=== PATIENT | female | born 1930 | race Caucasian/White ===

== ENCOUNTER → 2016-05-03 | Outpatient (CLI) | payer MEDICARE, OTHER | LOC: EDBD → WI 10:48 | PROVIDERS: ATTEND Family Medicine | DX: Z12.31 Encounter for screening mammogram for malignant neoplasm of breast (principal) | CPT/HCPCS: 77067; G0202 ==

== ENCOUNTER → 2016-05-05 | Outpatient (CLI) | payer MEDICARE, OTHER ==
[2016-05-05 11:56] LABS: ANION GAP 13 (5-19); BLOOD UREA NITROGEN 25 mg/dL (7-20); CALCIUM 10.7 mg/dL (8.4-10.2); CARBON DIOXIDE 26 mmol/L (22-30); CHLORIDE 107 mmol/L (98-107); CHOLESTEROL 161.43 mg/dL (0-200); CREATININE RESULT 1.27 mg/dL (0.52-1.25); Direct HDL 53 mg/dL (>40); GLUCOSE 104 mg/dL (75-110); SODIUM 145.9 mmol/L (137-145); TRIGLYCERIDES 139 mg/dL (<150)
[2016-05-05 12:06] LABS: DIRECT LDL 71 mg/dL (<100)
== END ==
LOC: OD 09:59
PROVIDERS: ATTEND Physician Assistant Medical
DX: E78.2 Mixed hyperlipidemia (principal); I10 Essential (primary) hypertension; Z79.899 Other long term (current) drug therapy; R06.02 Shortness of breath
CPT/HCPCS: 36415; 80048; 80061; 83036; 83880; 84443

== ENCOUNTER → 2017-03-30 | Outpatient (CLI) | payer MEDICARE, OTHER ==
[2017-03-30 12:40] LABS: HEMATOCRIT 44.1 % (36.0-47.0); HEMOGLOBIN 15.1 g/dL (12.0-15.5); MEAN CORPUSCULAR HEMOGLOBIN 31.8 pg (27.0-33.4); MEAN CORPUSCULAR HGB CONC 34.2 g/dL (32.0-36.0); MEAN CORPUSCULAR VOLUME 93 fl (80-97); PLATELET COUNT 213 10^3/uL (150-450); RED BLOOD COUNT 4.76 10^6/uL (3.72-5.28); RED CELL DISTRIBUTION WIDTH 13.4 % (11.5-14.0); WHITE BLOOD COUNT 10.1 10^3/uL (4.0-10.5)
[2017-03-30 13:02] LABS: CHOLESTEROL 154.55 mg/dL (0-200); TRIGLYCERIDES 153 mg/dL (<150)
[2017-03-30 13:03] LABS: ALANINE AMINOTRANSFERASE 30 U/L (9-52); ALBUMIN 4.6 g/dL (3.5-5.0); ALKALINE PHOSPHATASE 156 U/L (38-126); ANION GAP 15 (5-19); ASPARTATE AMINO TRANSFERASE 31 U/L (14-36); BILIRUBIN,DIRECT 0.3 mg/dL (0.0-0.4); BLOOD UREA NITROGEN 18 mg/dL (7-20); CALCIUM 10.8 mg/dL (8.4-10.2); CARBON DIOXIDE 24 mmol/L (22-30); CHLORIDE 107 mmol/L (98-107); GLUCOSE 109 mg/dL (75-110); POTASSIUM 4.3 mmol/L (3.6-5.0); SODIUM 145.8 mmol/L (137-145); TOTAL PROTEIN 7.4 g/dL (6.3-8.2)
[2017-03-30 13:05] LABS: ANION GAP 15 (5-19); BLOOD UREA NITROGEN 18 mg/dL (7-20); CALCIUM 10.8 mg/dL (8.4-10.2); CARBON DIOXIDE 24 mmol/L (22-30); CHLORIDE 107 mmol/L (98-107); GLUCOSE 109 mg/dL (75-110); POTASSIUM 4.3 mmol/L (3.6-5.0); SODIUM 145.8 mmol/L (137-145)
[2017-03-30 13:13] LABS: DIRECT LDL 77 mg/dL (<100)
[2017-03-30 13:16] LABS: VLDL CHOLESTEROL 30.6 mg/dL (10-31)
== END ==
LOC: OD 10:57
PROVIDERS: ATTEND Physician Assistant Medical
DX: R06.02 Shortness of breath (principal); E78.2 Mixed hyperlipidemia; I10 Essential (primary) hypertension; Z79.899 Other long term (current) drug therapy
CPT/HCPCS: 36415; 80048; 80053; 80061; 83036; 83880; 84443; 85027

== ENCOUNTER 2017-07-16 21:03 | Emergency (ER) | payer MEDICARE, OTHER ==
[2017-07-16] MEDS ORDERED: TRANEXAMIC ACID INJ/PF 1,000 MG/10 ML SDV IV ONE (22:54)
[2017-07-16] MEDS ORDERED: LIDOCAINE 2% VISCOUS SOLN 20 ML UDCUP PO ONE (23:12)
[2017-07-16] MEDS ORDERED: ONDANSETRON 4 MG TAB.RAPDIS PO ONE (23:15)
--- NOTE | 2017-07-16 23:20 | ER Document Report ---
ED General - General Chief Complaint: Nose Bleed Stated Complaint: NOSE BLEED Time Seen by Provider: 07/16/17 22:42 Mode of Arrival: Medic Information source: Patient, [facility] Records Notes: 86-year-old female with history of hypertension, reflux, atrial fibrillation on Eliquis presents with complaint of nosebleed that started several hours prior to arrival. Patient denies any injury to the nose. She denies any increases in medication. She has had prior similar symptoms. Patient denies any chest pain, shortness of breath, abdominal pain. She does admit to some nausea. TRAVEL OUTSIDE OF THE [place] IN LAST 30 DAYS: No - HPI Onset: Just prior to arrival Onset/Duration: Gradual, Persistent Quality of pain: No pain Severity: None Associated symptoms: denies: Chest pain, Shortness of breath Exacerbated by: Denies. denies: Supine Relieved by: Denies Similar symptoms previously: Yes - Related Data Allergies/Adverse Reactions: aspirin [Aspirin] Allergy (Intermediate, Verified 07/16/17 21:08) GI BLEED Sulfa (Sulfonamide Antibiotics) Allergy (Verified 07/16/17 21:08) Past Medical History - General Information source: Patient, [facility] Records - Social History Smoking Status: Never Smoker Frequency of alcohol use: None Drug Abuse: None Lives with: Family Family History: Reviewed & Not Pertinent Patient has suicidal ideation: No Patient has homicidal ideation: No - Past Medical History Cardiac Medical History: Reports: Hx Hypertension GI Medical History: Reports: Hx Hiatal Hernia Past Surgical History: Reports: Hx Cholecystectomy, Hx Hysterectomy Review of Systems - Review of Systems Notes: REVIEW OF SYSTEMS: CONSTITUTIONAL : Denies fever, chills, or sweats. Denies recent illness. Denies weight loss, recent hospitalizations. EENT: Denies visula changes, eye pain. Denies sore throat, oral lesions, difficulty swallowing. CARDIOVASCULAR: Denies chest pain. Denies palpitations or racing or irregular heart beat. Denies lower extremity edema. RESPIRATORY: Denies cough, cold, or chest congestion. Denies shortness of breath, difficulty breathing, or wheezing. GASTROINTESTINAL: Denies abdominal pain or distention. Denies vomiting, or diarrhea. Denies blood in vomitus, stools, or per rectum. Denies black, tarry stools. Denies constipation. GENITOURINARY: Denies difficulty urinating, painful urination, burning, frequency, blood in urine, or vaginal discharge. MUSCULOSKELETAL: Denies back or neck pain or stiffness. Denies joint pain or swelling. SKIN: Denies rash, lesions or sores. HEMATOLOGIC : Denies easy bruising or bleeding. LYMPHATIC: Denies swollen, enlarged glands. NEUROLOGICAL: Denies confusion or altered mental status. Denies passing out or loss of consciousness. Denies dizziness or lightheadedness. Denies headache. Denies weakness or paralysis or loss of use of either side. Denies problems with gait or speech. Denies sensory loss, numbness, or tingling. Denies seizures. PSYCHIATRIC: Denies anxiety or stress. Denies depression, suicidal ideation, or homicidal ideation. Physical Exam - Vital signs Vitals: Temp Pulse Resp BP Pulse Ox 97.8 F 83 16 128/91 H 94 07/16/17 21:12 07/16/17 21:12 07/16/17 21:12 07/16/17 21:12 07/16/17 21:12 - Notes Notes: PHYSICAL EXAMINATION: GENERAL: Well-appearing, well-nourished and in no acute distress. HEAD: Atraumatic, normocephalic. EYES: Pupils equal round and reactive to light, extraocular movements intact, conjunctiva are normal. ENT: active bleeding from the right nares. moist mucous membranes. NECK: Normal range of motion, supple without lymphadenopathy LUNGS: Breath sounds clear to auscultation bilaterally and equal. No wheezes rales or rhonchi. HEART: Regular rate and rhythm without murmurs ABDOMEN: Soft, nontender, nondistended abdomen. No guarding, no rebound. No masses appreciated. Female : deferred Musculoskeletal: Normal range of motion, no pitting or edema. No cyanosis. NEUROLOGICAL: Cranial nerves grossly intact. Normal speech, normal gait. Normal sensory, motor exams PSYCH: Normal mood, normal affect. SKIN: Warm, Dry, normal turgor, no rashes or lesions noted. Course - Re-evaluation Re-evalutation: 86-year-old female with history of hypertension, reflux, atrial fibrillation on Eliquis presents with complaint of nosebleed that started several hours prior to arrival. Patient was seen by myself upon arrival. Vital signs were reviewed. Patient is afebrile, normotensive and not hypoxic. Patient does not appear toxic or dehydrated. They are in no acute distress. Previous medical records and nursing notes reviewed. Significant findings include mild oozing from the right naris. 07/17/17 00:27 2 cc of TXA were atomized into the patient's right naris. Pressure was held. On reevaluation bleeding has stopped. Patient was monitored for several hours in the emergency department to assure she does not rebleed. 07/17/17 00:42 Attempted to contact patient's son to assure that she will be able to get into the house but the phone is currently busy. We will continue to monitor the patient until we can get her home. 07/17/17 08:19 Patient has remained stable throughout her ED course of 8 hours. She had no recurrence of bleeding. Patient will be discharged home as soon as we can assure she is able to get into the house. Patient provided the opportunity to ask questions, and express concerns. Discharge instructions discussed. Patient is agreeable with discharge home. Return indications explained and discussed with the patient who displays understanding. Patient encouraged to return to the emergency department immediately with any concerns. - Vital Signs Vital signs: Temp Pulse Resp BP Pulse Ox 98.4 F 77 20 118/79 96 07/17/17 04:55 07/17/17 04:55 07/17/17 04:55 07/17/17 04:55 07/17/17 04:55 Discharge - Discharge Clinical Impression: Anterior epistaxis Condition: Good Disposition: HOME, SELF-CARE Instructions: Nosebleed Instructions ([facility]) Additional Instructions: Follow up with your physician tomorrow for further care or return to the ED IMMEDIATELY if symptoms worsen or new concerns occur. If you cannot afford to follow up with your primary care physician a list of low cost clinics have been provided at the end of your discharge papers as well. Referrals: DEBBIE PICKARD MD [Primary Care Provider] - Follow up in 3-5 days
[2017-07-17 04:59] VITALS: BP 118/79
== END 2017-07-17 07:01 | disposition home or self-care (01) ==
LOC: ER 21:03
DX: R04.0 Epistaxis (principal); R11.0 Nausea; I10 Essential (primary) hypertension; I48.91 Unspecified atrial fibrillation; Z79.01 Long term (current) use of anticoagulants; Z88.6 Allergy status to analgesic agent; Z88.2 Allergy status to sulfonamides
CPT/HCPCS: 99284; 96374; A9270; J3490 ×2; S0119

== ENCOUNTER 2017-07-30 08:06 | Emergency (ER) | payer MEDICARE, OTHER ==
[2017-07-30] MEDS ORDERED: SILVER NITRATE APPLICATOR 1 APPLIC STICK..EA. 10/PACKAGE TOP ONE (08:47)
[2017-07-30 10:08] LABS: ABSOLUTE BASOPHILS # (AUTO) 0.1 10^3/uL (0.0-0.2); ABSOLUTE EOSINOPHILS # (AUTO) 0.6 10^3/uL (0.0-0.6); ABSOLUTE LYMPHOCYTES (AUTO) 1.1 10^3/uL (0.5-4.7); ABSOLUTE MONOCYTES (AUTO) 0.8 10^3/uL (0.1-1.4); ABSOLUTE NEUT (AUTO) 6.8 10^3/uL (1.7-8.2); ALANINE AMINOTRANSFERASE 24 U/L (9-52); ALBUMIN 3.8 g/dL (3.5-5.0); ALKALINE PHOSPHATASE 148 U/L (38-126); ANION GAP 10 (5-19); ASPARTATE AMINO TRANSFERASE 26 U/L (14-36); BASOPHILS % (AUTO) 1.1 % (0-2); BILIRUBIN,DIRECT 0.4 mg/dL (0.0-0.4); BILIRUBIN,TOTAL 1.8 mg/dL (0.2-1.3); BLOOD UREA NITROGEN 18 mg/dL (7-20); CALCIUM 10.1 mg/dL (8.4-10.2); CARBON DIOXIDE 25 mmol/L (22-30); CHLORIDE 110 mmol/L (98-107); EOSINOPHILS % (AUTO) 6.8 % (0-6); GLUCOSE 122 mg/dL (75-110); HEMATOCRIT 35.8 % (36.0-47.0); HEMOGLOBIN 12.1 g/dL (12.0-15.5); LYMPHOCYTES % (AUTO) 11.9 % (13-45); MEAN CORPUSCULAR HEMOGLOBIN 30.9 pg (27.0-33.4); MEAN CORPUSCULAR HGB CONC 33.9 g/dL (32.0-36.0); MEAN CORPUSCULAR VOLUME 91 fl (80-97); MONOCYTES % (AUTO) 8.1 % (3-13); PLATELET COUNT 226 10^3/uL (150-450); POTASSIUM 4.4 mmol/L (3.6-5.0); RED BLOOD COUNT 3.93 10^6/uL (3.72-5.28); RED CELL DISTRIBUTION WIDTH 14.8 % (11.5-14.0); SEGMENTED NEUTROPHILS % (AUTO) 72.1 % (42-78); SODIUM 145.3 mmol/L (137-145); TOTAL CELLS COUNTED % (AUTO) 100 %; TOTAL PROTEIN 7.1 g/dL (6.3-8.2); WHITE BLOOD COUNT 9.4 10^3/uL (4.0-10.5)
[2017-07-30 10:26] LABS: INTERNATIONAL RATION (INR) 1.23; PROTHROMBIN TIME 16.1 SEC (11.4-15.4)
[2017-07-30 10:27] LABS: PARTIAL THROMBOPLASTIN TIME 38.4 SEC (23.5-35.8)
--- NOTE | 2017-07-30 12:08 | ER Document Report ---
ED ENT - General Chief Complaint: Nose Bleed Stated Complaint: NOSE BLEED Time Seen by Provider: 07/30/17 08:20 Mode of Arrival: Medic Information source: Patient Notes: Patient is an 86-year-old female who presents to the ER today for nosebleed that started prior to arrival. Patient has had 4 nosebleeds in the past month. She has come to the emergency department had them packed. She admits to being on Eliquis for A. fib. She denies any trauma to the nose that she knows of. She denies any bleeding anywhere else. She has not followed up with ear nose and throat yet this month. TRAVEL OUTSIDE OF THE [place] IN LAST 30 DAYS: No - Related Data Allergies/Adverse Reactions: aspirin [Aspirin] Allergy (Intermediate, Verified 07/30/17 08:34) GI BLEED Sulfa (Sulfonamide Antibiotics) Allergy (Verified 07/30/17 08:34) Past Medical History - General Information source: Patient - Social History Smoking Status: Never Smoker Chew tobacco use (# tins/day): No Frequency of alcohol use: None Drug Abuse: None Family History: Reviewed & Not Pertinent Patient has suicidal ideation: No Patient has homicidal ideation: No - Past Medical History Cardiac Medical History: Reports: Hx Atrial Fibrillation, Hx Congestive Heart Failure, Hx Hypertension Renal/ Medical History: Denies: Hx Peritoneal Dialysis GI Medical History: Reports: Hx Hiatal Hernia Past Surgical History: Reports: Hx Cholecystectomy, Hx Hysterectomy Review of Systems - Review of Systems Constitutional: No symptoms reported EENT: See HPI Cardiovascular: See HPI Respiratory: No symptoms reported Gastrointestinal: No symptoms reported Genitourinary: No symptoms reported Female Genitourinary: No symptoms reported Musculoskeletal: No symptoms reported Skin: No symptoms reported Hematologic/Lymphatic: No symptoms reported Neurological/Psychological: No symptoms reported Physical Exam - Vital signs Vitals: Temp Pulse Resp BP Pulse Ox 98.2 F 69 13 141/75 H 99 07/30/17 08:06 07/30/17 08:06 07/30/17 08:06 07/30/17 08:06 07/30/17 08:06 - Notes Notes: PHYSICAL EXAMINATION: GENERAL: Well-appearing and in no acute distress. HEAD: Right nostril packed with gauze with dried blood surrounding, normocephalic. EYES: Pupils equal round and reactive to light, extraocular movements intact, sclera anicteric, conjunctiva are normal. ENT: ear canals without erythema or foreign body, TMs pearly rizzo with good bony landmarks, nares patent, oropharynx clear without exudates. Moist mucous membranes. NECK: Normal range of motion, supple without lymphadenopathy LUNGS: CTAB and equal. No wheezes rales or rhonchi. HEART: Irregularly irregular, without murmurs EXTREMITIES: Normal range of motion, no pitting edema. No cyanosis. NEUROLOGICAL: Cranial nerves grossly intact. Normal sensory/motor exams. PSYCH: Normal mood, normal affect. SKIN: Warm, Dry, normal turgor, no rashes or lesions noted Course - Re-evaluation Re-evalutation: 07/30/17 11:51 Dr. hernandez, my attending evaluated patient with myself and we do not appreciate any anterior nosebleed. Patient's nose did start bleeding again here in the emergency department, profusely, bright red blood, patient's nose was at that time packed by myself and Dr. hernandez with a Rhino Rocket. Patient tolerated procedure well although it was painful. Patient was watched for at least 4 hours after this time and no more bleeding occurred. I do believe at this time it is safe for patient to go home with Rhino Rocket in place and follow-up with ENT. Dr. Bingham, ENT application security engineer at [facility] states she can go home with the rhino rocket in place as she has had no bleeding and follow up in the office outpatient next week, (Today's tuesday) and to send her home on amoxicillin. Dr. Dodson was consulted, her real estate office manager who wants her to hold eliquis for a day. 08/01/17 16:10 - Vital Signs Vital signs: Temp Pulse Resp BP Pulse Ox 98.2 F 69 18 133/69 H 93 07/30/17 08:06 07/30/17 08:06 07/30/17 13:01 07/30/17 13:01 07/30/17 13:01 - Laboratory Result Diagrams: 07/30/17 08:25 07/30/17 08:25 Laboratory results interpreted by me: 07/30/17 07/30/17 07/30/17 08:25 08:25 08:25 Hct 35.8 L RDW 14.8 H Lymphocytes % 11.9 L Eosinophils % 6.8 H PT 16.1 H APTT 38.4 H Sodium 145.3 H Chloride 110 H Creatinine 1.37 H Est GFR ( Amer) 44 L Est GFR (Non-Af Amer) 37 L Glucose 122 H Total Bilirubin 1.8 H Alkaline Phosphatase 148 H Procedures - Nosebleed Procedure Right Time completed: 10:00 Location: Posterior Supplies used: RhinoroA[facility] Notes: Dr. Hernandez performed, successful Discharge - Discharge Clinical Impression: Posterior epistaxis Condition: Stable Disposition: HOME, SELF-CARE Additional Instructions: Return immediately for any new or worsening symptoms. Follow up with ENT, call Tuesday to make followup appointment. Prescriptions: Amoxicillin 500 mg PO BID #20 capsule Referrals: DEBBIE PICKARD MD [Primary Care Provider] - Follow up as needed BILL DOTY DO [ASSOCIATE] - Follow up as needed
[2017-07-30 13:18] VITALS: BP 133/69
== END 2017-07-30 13:20 | disposition home or self-care (01) ==
LOC: ER 08:06
PROC: 2Y41X5Z Packing of Nasal Region using Packing Material (ICD-10-PCS; principal; 2017-07-30)
DX: R04.0 Epistaxis (principal); I48.91 Unspecified atrial fibrillation; I50.9 Heart failure, unspecified; I11.0 Hypertensive heart disease with heart failure; Z88.6 Allergy status to analgesic agent; Z88.2 Allergy status to sulfonamides; Z79.02 Long term (current) use of antithrombotics/antiplatelets; Z90.49 Acquired absence of other specified parts of digestive tract; Z90.710 Acquired absence of both cervix and uterus
CPT/HCPCS: 36415; 80053; 85025; 85610; 85730; 99283

== ENCOUNTER 2017-08-05 03:46 | Inpatient (IN) | payer MEDICARE, OTHER ==
[2017-08-05] MEDS ORDERED: LIDOCAINE 2%/EPINEPHRINE INJ 20 ML VIAL INJ ONE (03:53)
[2017-08-05] MEDS ORDERED: LIDOCAINE 1% INJ-PF (10 MG/ML) 30 ML SDV ONE (03:54)
[2017-08-05] MEDS ORDERED: TRANEXAMIC ACID INJ/PF 1,000 MG/10 ML SDV IV ONE (03:59)
--- NOTE | 2017-08-05 04:21 | ER Document Report ---
ED General - General Stated Complaint: NOSE BLEED Time Seen by Provider: 08/05/17 03:59 Notes: Patient is an 86-year-old female presents with complaint of nosebleed. She has recurrent nosebleeds. She was seen 2 days ago and had cauterization performed by the ENT doctor. She is on Eliquis that she takes for atrial fibrillation. She denies history of artificial heart valve. She presents because around 2 AM she started bleeding heavily from her nose. She presents with a suspect for blood clots and patient having large amounts clots coming from the nose. Her medics tried topical TXA but was unsuccessful. Patient says that the cauterization was done at the ENT office here in [place]. She is unsure what the name of the doctor was. Patient says it was her right nare that was cauterized TRAVEL OUTSIDE OF THE [place] IN LAST 30 DAYS: No - Related Data Allergies/Adverse Reactions: aspirin [Aspirin] Allergy (Intermediate, Verified 07/30/17 08:34) GI BLEED Sulfa (Sulfonamide Antibiotics) Allergy (Verified 07/30/17 08:34) Past Medical History - Social History Smoking Status: Unknown if Ever Smoked Frequency of alcohol use: None Drug Abuse: None Family History: Reviewed & Not Pertinent - Past Medical History Cardiac Medical History: Reports: Hx Atrial Fibrillation, Hx Congestive Heart Failure, Hx Hypertension Renal/ Medical History: Denies: Hx Peritoneal Dialysis GI Medical History: Reports: Hx Hiatal Hernia Past Surgical History: Reports: Hx Cholecystectomy, Hx Hysterectomy Review of Systems - Review of Systems Notes: My Normal Review Basic REVIEW OF SYSTEMS: CONSTITUTIONAL : Denies fever, chills, or sweats. Denies recent illness. EENT: Active nose bleed CARDIOVASCULAR: Denies chest pain. RESPIRATORY: Denies cough, cold, or chest congestion. Denies shortness of breath, difficulty breathing, or wheezing. GENITOURINARY: Denies difficulty urinating, painful urination, burning, frequency, or blood in urine. SKIN: Denies rash or skin lesions. HEMATOLOGIC : on Eliquis. NEUROLOGICAL: Denies altered mental status or loss of consciousness. Denies headache. Denies weakness or paralysis or loss of use of either side. Denies problems with gait or speech. Denies sensory or motor loss. ALL OTHER SYSTEMS REVIEWED AND NEGATIVE. Physical Exam - Vital signs Vitals: Pulse Ox 96 08/05/17 04:10 - Notes Notes: General Appearance: Well nourished, alert, cooperative, no acute distress, no obvious discomfort. Vitals: reviewed, See vital signs table. Head: no swelling or tenderness to the head Eyes: PERRL, EOMI, Conjuctiva clear Nares: Blood clots in both nares. Will remove the clots the patient continues to bleed from both nares and is difficult to see exactly where the bleeding is coming from in either nare. Mouth: Amount of blood clots in the patient's mouth with active bleeding coming from the mouth. Throat: No tonsillar inflammation, No airway obstruction, No lymphadenopathy Neck: Supple, no neck tenderness Lungs: No wheezing, No rales, No rhonci, No accessory muscle use, good air exchange bilaterally. Heart: Normal rate, Regular rythm, No murmur, no rub Skin: warm, dry, appropriate color, no rash Neuro: speech clear, oriented x 3, normal affect, responds appropriately to questions. Course - Re-evaluation Re-evalutation: 08/05/17 04:22 Because of ongoing active hemorrhage and a large amount of clots have been pulled from patient's nose and mouth I called our ENT on-call, Dr. Beaulieu, he will come and evaluate the patient. Patient is receiving 500 mg of tranexamic acid. She has [address] are soaked with lidocaine with epi. Seems now that most the bleeding is coming more from the right side. 08/05/17 06:34 Dr. Beaulieu came and saw the patient. He was able to cauterize several areas and place posterior packing and now he will take the patient to the OR. Dictation of this chart was performed using voice recognition software; therefore, there may be some unintended grammatical errors. 08/05/17 06:35 - Vital Signs Vital signs: Temp Pulse Resp BP Pulse Ox 16 102/59 L 95 08/05/17 04:15 08/05/17 04:15 08/05/17 04:15 - Laboratory Result Diagrams: 08/05/17 04:25 08/05/17 04:25 Laboratory results interpreted by me: 08/05/17 08/05/17 08/05/17 04:25 04:25 04:25 WBC 12.8 H RBC 3.63 L Hgb 10.9 L Hct 32.9 L RDW 14.3 H Seg Neutrophils % 79.7 H Lymphocytes % 7.9 L Absolute Neutrophils 10.2 H PT 18.0 H APTT 42.1 H BUN 25 H Creatinine 1.39 H Est GFR ( Amer) 44 L Est GFR (Non-Af Amer) 36 L Glucose 149 H Discharge - Discharge Clinical Impression: Epistaxis Condition: Stable Disposition: ADMITTED OBSERVATION Admitting Provider: [facility] Admitted: OR Referrals: DEBBIE PICKARD MD [Primary Care Provider] - Follow up as needed
[2017-08-05 04:32] LABS: ABSOLUTE BASOPHILS # (AUTO) 0.1 10^3/uL (0.0-0.2); ABSOLUTE EOSINOPHILS # (AUTO) 0.4 10^3/uL (0.0-0.6); ABSOLUTE MONOCYTES (AUTO) 1.1 10^3/uL (0.1-1.4); ABSOLUTE NEUT (AUTO) 10.2 10^3/uL (1.7-8.2); EOSINOPHILS % (AUTO) 2.8 % (0-6); HEMATOCRIT 32.9 % (36.0-47.0); HEMOGLOBIN 10.9 g/dL (12.0-15.5); LYMPHOCYTES % (AUTO) 7.9 % (13-45); MEAN CORPUSCULAR HEMOGLOBIN 30.1 pg (27.0-33.4); MEAN CORPUSCULAR HGB CONC 33.2 g/dL (32.0-36.0); MEAN CORPUSCULAR VOLUME 91 fl (80-97); MONOCYTES % (AUTO) 8.6 % (3-13); PLATELET COUNT 311 10^3/uL (150-450); RED BLOOD COUNT 3.63 10^6/uL (3.72-5.28); RED CELL DISTRIBUTION WIDTH 14.3 % (11.5-14.0); SEGMENTED NEUTROPHILS % (AUTO) 79.7 % (42-78); TOTAL CELLS COUNTED % (AUTO) 100 %; WHITE BLOOD COUNT 12.8 10^3/uL (4.0-10.5)
[2017-08-05 04:40] LABS: INTERNATIONAL RATION (INR) 1.41
[2017-08-05 04:41] LABS: PARTIAL THROMBOPLASTIN TIME 42.1 SEC (23.5-35.8)
[2017-08-05 04:43] LABS: ANION GAP 12 (5-19); BLOOD UREA NITROGEN 25 mg/dL (7-20); CALCIUM 9.9 mg/dL (8.4-10.2); CARBON DIOXIDE 24 mmol/L (22-30); CHLORIDE 106 mmol/L (98-107); GLUCOSE 149 mg/dL (75-110); POTASSIUM 4.6 mmol/L (3.6-5.0); SODIUM 142.1 mmol/L (137-145)
[2017-08-05] MEDS ORDERED: FENTANYL CITRATE INJ/PF 100 MCG/2 ML AMPUL ONE (06:55)
[2017-08-05] MEDS ORDERED: LIDOCAINE 2% INJ-PF (20 MG/ML) 10 ML AMPUL ONE (06:55)
[2017-08-05] MEDS ORDERED: MIDAZOLAM 2 MG/2 ML INJ ONE (06:55)
[2017-08-05] MEDS ORDERED: DEXAMETHASONE SOD PHOSPHATE INJ 4 MG/1 ML VIAL ONE (06:55)
[2017-08-05] MEDS ORDERED: PROPOFOL INJ 200 MG/20 ML VIAL IV ONE (06:56)
[2017-08-05] MEDS ORDERED: OXYMETAZOLINE HCL 0.05% NASAL SPRAY 15 ML BOTTLE ONE (07:00)
[2017-08-05] MEDS ORDERED: BUPIVACAINE HCL 0.5%/EPI 1:200000 INJ 1.8 ML CARTRIDGE ONE (07:25)
[2017-08-05] MEDS ORDERED: BUPIVACAINE HCL 0.5%-EPI 1:200000 INJ/PF 30 ML VIAL ONE (07:25)
[2017-08-05] MEDS ORDERED: LIDOCAINE 0.5%/EPINEPHRINE INJ 50 ML VIAL INJ ONE (07:58)
[2017-08-05] MEDS ORDERED: FENTANYL CITRATE INJ/PF 100 MCG/2 ML AMPUL IV PRN ×2 (08:12)
[2017-08-05] MEDS ORDERED: MORPHINE SULFATE 10 MG/ML INJ IV PRN ×2 (08:12→10:03)
[2017-08-05] MEDS ORDERED: PROMETHAZINE HCL INJ 25 MG/1 ML VIAL IV PRN ×2 (08:12→10:03)
[2017-08-05] MEDS ORDERED: ONDANSETRON HCL INJ/PF 4 MG/2 ML SDV IV PRN ×2 (08:12→10:03)
[2017-08-05] MEDS ORDERED: MEPERIDINE HCL/PF INJ 25 MG/1 ML DISP.SYRIN IV PRN (08:12)
[2017-08-05] MEDS ORDERED: DIPHENHYDRAMINE HCL 50 MG/ML VIAL IV PRN (08:12)
[2017-08-05] MEDS ORDERED: HYDROCODONE/ACETAMINOPHEN 5-325 MG TABLET PO PRN (10:03)
[2017-08-05] MEDS: AMOXICILLIN TR/POT CLAVULANATE 500-125 MG TAB PO SCH ×2 (13:09→22:03)
[2017-08-05] MEDS: SODIUM CHLORIDE NASAL SPRAY 44 ML NASL SCH ×2 (13:10→17:02)
[2017-08-05] MEDS ORDERED: ACETAMINOPHEN 325 MG TABLET PO PRN (13:39)
[2017-08-05] MEDS ORDERED: IPRATROPIUM/ALBUTEROL 0.5-2.5 MG/3 ML AMPUL NEB PRN (13:39)
[2017-08-05] MEDS ORDERED: OXYCODONE-ACETAMINOPHEN 5-325 MG TABLET PO PRN (13:39)
--- NOTE | 2017-08-05 16:13 | PDOC H&P ---
History of Present Illness Admission Date/PCP: 08/05/17 06:40 DEBBIE PICKARD MD Patient complains of: Nose bleed History of Present Illness: MOHAN ALVARENGA is a 86 year old female Past Medical History Cardiac Medical History: Reports: Atrial Fibrillation, Congestive Heart Failure , Hypertension GI Medical History: Reports: Hiatal Hernia Hematology: Denies: Anemia, Sickle Cell Disease Past Surgical History Past Surgical History: Reports: Cholecystectomy, Hysterectomy Denies: Amputation Social History Smoking Status: Never Smoker Frequency of Alcohol Use: None Hx Recreational Drug Use: No Drugs: None Hx Prescription Drug Abuse: No - Advance Directive Resuscitation Status: Full Code Family History Family History: Reviewed & Not Pertinent Parental Family History Reviewed: Yes Children Family History Reviewed: Yes Sibling(s) Family History Reviewed.: Yes Medication/Allergy Home Medications: Amlodipine Besylate [Norvasc 5 mg Tablet] 5 mg PO DAILY 08/05/17 Apixaban [Eliquis] 2.5 mg PO Q12 08/05/17 Atorvastatin Calcium [Lipitor 40 mg Tablet] 40 mg PO DAILY 08/05/17 Furosemide [Lasix 20 mg Tablet] 20 mg PO Q2D 08/05/17 Metoprolol Succinate [Toprol Xl 50 mg Tab.sr] 50 mg PO QHS 08/05/17 Metoprolol Succinate [Toprol Xl 50 mg Tab.sr] 100 mg PO QAM 08/05/17 Ondansetron [Zofran Odt 4 mg Tablet] 4 mg PO Q6HP PRN 08/05/17 Tramadol HCl [Ultram 50 mg Tablet] 50 mg PO Q8HP PRN 08/05/17 Valsartan [Diovan 160 mg Tablet] 160 mg PO Q12 08/05/17 Allergies/Adverse Reactions: aspirin [Aspirin] Allergy (Intermediate, Verified 07/30/17 08:34) GI BLEED Sulfa (Sulfonamide Antibiotics) Allergy (Verified 07/30/17 08:34) Review of Systems All systems: reviewed and no additional remarkable complaints except as stated Physical Exam Vital Signs: Temp Pulse Resp BP Pulse Ox 97.6 F 68 24 H 130/60 H 94 08/05/17 15:34 08/05/17 15:34 08/05/17 15:34 08/05/17 15:34 08/05/17 15:34 Pulse Oximeter Continuous Start: 06/29/18 10: 05 Freq: RTQ4 Status: Active Document 08/05/17 14:20 [facility] (Rec: 08/05/17 14:54 [facility] [email or web address]) Pulse Oximetry Assessment Oxygen Saturation (92-100) 93 Oxygen Delivery Method Room Air Fraction of Inspired Oxygen (FIO2) 21 Equipment Usage Initial Set Up Continuous Pulse Oximeter 24 Hour Charge Charge Now Continuous SpO2 Machine # [id number] Intake & Output 08/04/17 08/05/17 08/06/17 06:59 06:59 06:59 Intake Total 2500 Output Total 50 Balance 2450 Weight 63.503 kg General appearance: PRESENT: no acute distress, other - elderly and frail bilateral nosepaks both nostrils Head exam: PRESENT: atraumatic, normocephalic Eye exam: PRESENT: conjunctiva pink, EOMI, PERRLA. ABSENT: scleral icterus Ear exam: PRESENT: normal external ear exam Mouth exam: PRESENT: moist, tongue midline Neck exam: ABSENT: carotid bruit, JVD, lymphadenopathy, thyromegaly Respiratory exam: PRESENT: clear to auscultation austen. ABSENT: rales, rhonchi, wheezes Cardiovascular exam: PRESENT: irregular rhythm, +S1, +S2. ABSENT: diastolic murmur, rubs, systolic murmur Pulses: PRESENT: normal dorsalis pedis pul Vascular exam: PRESENT: normal capillary refill GI/Abdominal exam: PRESENT: normal bowel sounds, soft. ABSENT: distended, guarding, mass, organolmegaly, rebound, tenderness Rectal exam: PRESENT: deferred Extremities exam: PRESENT: full ROM. ABSENT: calf tenderness, clubbing, pedal edema Neurological exam: PRESENT: alert, awake, oriented to person, oriented to place , oriented to time, oriented to situation, CN II-XII grossly intact. ABSENT: motor sensory deficit Psychiatric exam: PRESENT: appropriate affect, normal mood. ABSENT: homicidal ideation, suicidal ideation Skin exam: PRESENT: dry, intact, warm. ABSENT: cyanosis, rash Results Laboratory Results: 08/05/17 04:25 08/05/17 04:25 Blood Type A POSITIVE 08/05/17 04:30 Antibody Screen NEGATIVE 08/05/17 04:30 MCV 91 fl (80-97) 08/05/17 04:25 MCH 30.1 pg (27.0-33.4) 08/05/17 04:25 MCHC 33.2 g/dL (32.0-36.0) 08/05/17 04:25 RDW 14.3 % (11.5-14.0) H 08/05/17 04:25 Seg Neutrophils % 79.7 % (42-78) H 08/05/17 04:25 Lymphocytes % 7.9 % (13-45) L 08/05/17 04:25 Monocytes % 8.6 % (3-13) 08/05/17 04:25 Eosinophils % 2.8 % (0-6) 08/05/17 04:25 Basophils % 1.0 % (0-2) 08/05/17 04:25 Absolute Neutrophils 10.2 10^3/uL (1.7-8.2) H 08/05/17 04:25 Absolute Lymphocytes 1.0 10^3/uL (0.5-4.7) 08/05/17 04:25 Absolute Monocytes 1.1 10^3/uL (0.1-1.4) 08/05/17 04:25 Absolute Eosinophils 0.4 10^3/uL (0.0-0.6) 08/05/17 04:25 Absolute Basophils 0.1 10^3/uL (0.0-0.2) 08/05/17 04:25 Chloride 106 mmol/L (98-107) 08/05/17 04:25 Carbon Dioxide 24 mmol/L (22-30) 08/05/17 04:25 Anion Gap 12 (5-19) 08/05/17 04:25 Est GFR ( Amer) 44 (>60) L 08/05/17 04:25 Est GFR (Non-Af Amer) 36 (>60) L 08/05/17 04:25 Glucose 149 mg/dL (75-110) H 08/05/17 04:25 Calcium 9.9 mg/dL (8.4-10.2) 08/05/17 04:25 Assessment & Plan - Diagnosis (1) Epistaxis Is this a current diagnosis for this admission?: Yes (2) Atrial fibrillation Qualifiers: Atrial fibrillation type: chronic Qualified Code(s): I48.2 - Chronic atrial fibrillation Is this a current diagnosis for this admission?: Yes (3) Hypertension Qualifiers: Is this a current diagnosis for this admission?: Yes - Time Time Spent: 30 to 50 Minutes Critical Time spent with patient: 15-24 minutes Medications reviewed and adjusted accordingly: Yes Anticipated discharge: Home Within: within 72 hours - Inpatient Certification Based on my medical assessment, after consideration of the patient's comorbidities, presenting symptoms, or acuity I expect that the services needed warrant INPATIENT care.: Yes Medical Necessity: Significant Comorbidiites Make Outpatient Treatment Too Risky , Risk of Diagnosis Which Will Require Inpatient Eval/Care/Monitoring
[2017-08-05] MEDS ORDERED: TRAMADOL HCL 50 MG TABLET PO PRN (16:16)
[2017-08-05] MEDS ORDERED: ONDANSETRON 4 MG TAB.RAPDIS PO PRN (16:16)
[2017-08-05] MEDS ORDERED: SUCCINYLCHOLINE CHLORIDE INJ 200 MG/10 ML VIAL ONE (18:30)
[2017-08-05] MEDS: OXYMETAZOLINE HCL 0.05% NASAL SPRAY 15 ML BOTTLE NASL SCH (22:02)
[2017-08-05] MEDS: VALSARTAN 160 MG TABLET PO SCH (22:03)
[2017-08-05] MEDS: METOPROLOL SUCCINATE 50 MG TAB.SR.24H PO SCH (22:03)
[2017-08-06] MEDS: SODIUM CHLORIDE NASAL SPRAY 44 ML NASL SCH ×4 (01:09→16:48)
[2017-08-06] MEDS: AMOXICILLIN TR/POT CLAVULANATE 500-125 MG TAB PO SCH ×3 (06:13→22:20)
[2017-08-06] MEDS: RINGERS SOLUTION,LACTATED 1,000 ML IV PRN (06:14)
[2017-08-06 06:23] LABS: HEMATOCRIT 26.4 % (36.0-47.0); HEMOGLOBIN 8.9 g/dL (12.0-15.5); MEAN CORPUSCULAR HEMOGLOBIN 30.5 pg (27.0-33.4); MEAN CORPUSCULAR HGB CONC 33.7 g/dL (32.0-36.0); MEAN CORPUSCULAR VOLUME 90 fl (80-97); PLATELET COUNT 278 10^3/uL (150-450); RED BLOOD COUNT 2.92 10^6/uL (3.72-5.28); RED CELL DISTRIBUTION WIDTH 14.5 % (11.5-14.0); WHITE BLOOD COUNT 14.4 10^3/uL (4.0-10.5)
[2017-08-06 06:42] LABS: ANION GAP 13 (5-19); BLOOD UREA NITROGEN 23 mg/dL (7-20); CALCIUM 9.9 mg/dL (8.4-10.2); CARBON DIOXIDE 22 mmol/L (22-30); CHLORIDE 109 mmol/L (98-107); GLUCOSE 126 mg/dL (75-110); POTASSIUM 4.6 mmol/L (3.6-5.0); SODIUM 144.1 mmol/L (137-145)
[2017-08-06] MEDS: METOPROLOL SUCCINATE 50 MG TAB.SR.24H PO SCH ×2 (07:27→22:20)
[2017-08-06] MEDS: ATORVASTATIN CALCIUM 40 MG TABLET PO SCH (09:14)
[2017-08-06] MEDS: FUROSEMIDE 20 MG TABLET PO SCH (09:14)
[2017-08-06] MEDS: VALSARTAN 160 MG TABLET PO SCH ×2 (09:14→22:20)
[2017-08-06] MEDS: DOCUSATE SODIUM 100 MG CAPSULE PO SCH (09:14)
[2017-08-06] MEDS: OXYMETAZOLINE HCL 0.05% NASAL SPRAY 15 ML BOTTLE NASL SCH ×2 (09:15→22:20)
[2017-08-06] MEDS: AMLODIPINE BESYLATE 5 MG TABLET PO SCH (09:15)
--- NOTE | 2017-08-06 15:34 | PDOC PROGRESS REPORT ---
Subjective Progress Note for:: 08/06/17 Subjective:: Patient admitted with epistaxis which has been recurrent. She has had cauterization done by ENT. There appears he has had multiple bleeding episodes and stability again during the night I believe from the left nare. Patient's hemoglobin has dropped to 8.3 from 10.6 yesterday and was about 12 2 days ago. Although she is not visibly bleeding and she is hemodynamically stable I think it is reasonable to keep her to ensure that bleeding has stopped and she is stabilized prior to discharge ENT is requesting a transfer to the hospitalist service and have placed an order to do this Reason For Visit: EPISTAXIS ATRIAL FIBRILLATION Physical Exam Vital Signs: Temp Pulse Resp BP Pulse Ox 98.9 F 88 18 129/52 H 94 08/06/17 11:20 08/06/17 14:00 08/06/17 07:28 08/06/17 11:20 08/06/17 12:00 Pulse Oximeter Continuous Start: 08/05/17 10: 05 Freq: RTQ4 Status: Active Document 08/06/17 12:00 [facility] (Rec: 08/06/17 14:08 [facility] [id number]) Pulse Oximetry Assessment Oxygen Saturation (92-100) 94 Oxygen Delivery Method Room Air Equipment Usage Equipment in Use Continuous SpO2 Machine # 10 Intake & Output 08/05/17 08/06/17 08/07/17 06:59 06:59 06:59 Intake Total 5158 Output Total 1400 Balance 3758 Weight 62.8 kg General appearance: PRESENT: no acute distress, well-developed, other - Elderly female Head exam: PRESENT: atraumatic, normocephalic Eye exam: PRESENT: conjunctiva pink, EOMI, PERRLA. ABSENT: scleral icterus Ear exam: PRESENT: normal external ear exam Mouth exam: PRESENT: moist, tongue midline Neck exam: ABSENT: carotid bruit, JVD, lymphadenopathy, thyromegaly Respiratory exam: PRESENT: clear to auscultation [place]. ABSENT: rales, rhonchi, wheezes Cardiovascular exam: PRESENT: irregular rhythm, +S1, +S2, systolic murmur. ABSENT: diastolic murmur, rubs Pulses: PRESENT: normal dorsalis pedis pul Vascular exam: PRESENT: normal capillary refill GI/Abdominal exam: PRESENT: normal bowel sounds, soft. ABSENT: distended, guarding, mass, organolmegaly, rebound, tenderness Rectal exam: PRESENT: deferred Extremities exam: PRESENT: full ROM. ABSENT: calf tenderness, clubbing, pedal edema Neurological exam: PRESENT: alert, awake, oriented to person, oriented to place , oriented to situation, CN II-XII grossly intact, other - Patient appears to be a little bit more confused today with no lateralizing signs. ABSENT: motor sensory deficit Psychiatric exam: PRESENT: appropriate affect, normal mood. ABSENT: homicidal ideation, suicidal ideation Skin exam: PRESENT: dry, intact, warm. ABSENT: cyanosis, rash Additional comments: Bilateral nasal packing with swollen nostrils Results Laboratory Results: 08/06/17 05:43 08/06/17 05:43 08/06/17 08/06/17 05:43 05:43 WBC 14.4 H RBC 2.92 L Hgb 8.9 L Hct 26.4 L MCV 90 MCH 30.5 MCHC 33.7 RDW 14.5 H Plt Count 278 Sodium 144.1 Potassium 4.6 Chloride 109 H Carbon Dioxide 22 Anion Gap 13 BUN 23 H Creatinine 1.29 H Est GFR ( Amer) 48 L Est GFR (Non-Af Amer) 39 L Glucose 126 H Calcium 9.9 Assessment & Plan - Diagnosis (1) Epistaxis Is this a current diagnosis for this admission?: Yes Plan: Continue to hold Eliquis and monitor patient overnight. Will consider transfusion if hemoglobin continues to drop or any evidence of further acute blood loss (2) Atrial fibrillation Qualifiers: Atrial fibrillation type: chronic Qualified Code(s): I48.2 - Chronic atrial fibrillation Is this a current diagnosis for this admission?: Yes Plan: Hold Eliquis otherwise rate is controlled (3) Hypertension Qualifiers: Is this a current diagnosis for this admission?: Yes Plan: Controlled - Time Time Spent with patient: 15-24 minutes Medications reviewed and adjusted accordingly: Yes Anticipated discharge: Home Within: within 48 hours - Inpatient Certification Based on my medical assessment, after consideration of the patient's comorbidities, presenting symptoms, or acuity I expect that the services needed warrant INPATIENT care.: Yes Medical Necessity: Need Close Monitoring Due to Risk of Patient Decompensation, Risk of Complication if Not Cared For in Hospital
[2017-08-07] MEDS: SODIUM CHLORIDE NASAL SPRAY 44 ML NASL SCH ×4 (00:11→17:44)
[2017-08-07 05:14] LABS: HEMATOCRIT 23.9 % (36.0-47.0); MEAN CORPUSCULAR HEMOGLOBIN 30.3 pg (27.0-33.4); MEAN CORPUSCULAR HGB CONC 33.5 g/dL (32.0-36.0); MEAN CORPUSCULAR VOLUME 91 fl (80-97); PLATELET COUNT 227 10^3/uL (150-450); RED BLOOD COUNT 2.65 10^6/uL (3.72-5.28); RED CELL DISTRIBUTION WIDTH 14.6 % (11.5-14.0); WHITE BLOOD COUNT 8.3 10^3/uL (4.0-10.5)
[2017-08-07] MEDS: AMOXICILLIN TR/POT CLAVULANATE 500-125 MG TAB PO SCH ×3 (05:21→22:50)
[2017-08-07] MEDS: RINGERS SOLUTION,LACTATED 1,000 ML IV PRN (05:21)
[2017-08-07 05:33] LABS: ANION GAP 12 (5-19); BLOOD UREA NITROGEN 25 mg/dL (7-20); CALCIUM 9.4 mg/dL (8.4-10.2); CARBON DIOXIDE 26 mmol/L (22-30); CHLORIDE 108 mmol/L (98-107); GLUCOSE 104 mg/dL (75-110); POTASSIUM 4.2 mmol/L (3.6-5.0); SODIUM 146.1 mmol/L (137-145)
[2017-08-07] MEDS ORDERED: ACETAMINOPHEN 325 MG TABLET PO PRN (09:12)
[2017-08-07] MEDS ORDERED: NORMAL SALINE 250 ML IV PRN ×2 (09:12)
[2017-08-07] MEDS ORDERED: FUROSEMIDE INJ/PF 20 MG/2 ML SDV IV PRN (09:12)
[2017-08-07] MEDS: DOCUSATE SODIUM 100 MG CAPSULE PO SCH (09:17)
[2017-08-07] MEDS: METOPROLOL SUCCINATE 50 MG TAB.SR.24H PO SCH ×2 (09:17→22:50)
[2017-08-07] MEDS: AMLODIPINE BESYLATE 5 MG TABLET PO SCH (09:17)
[2017-08-07] MEDS: ATORVASTATIN CALCIUM 40 MG TABLET PO SCH (09:18)
[2017-08-07] MEDS: VALSARTAN 160 MG TABLET PO SCH ×2 (09:19→22:50)
[2017-08-07] MEDS: OXYMETAZOLINE HCL 0.05% NASAL SPRAY 15 ML BOTTLE NASL SCH ×2 (09:19→22:50)
--- NOTE | 2017-08-07 09:40 | PROGRESS NOTE E ---
Progress Note NAME: MOHAN ALVARENGA : 1930 AGE: 86Y DATE: 08/07/2017 ROOM: 429 SUBJECTIVE: The patient is currently lying in bed. Her son is present at the bedside, active in the patient's care. The patient has not had any overt evidence of continued bleeding; however, hemoglobin has drifted down. The patient is quite symptomatic, describing herself as overall weak and fatigued and given the patient's hemoglobin was over 12 just a few days ago. The patient has been afebrile. Her blood pressure has been in a good range and the patient does not voice any other concerns at this time. REVIEW OF SYSTEMS: The rest of the review of systems is negative. MEDICATIONS: Medications have been reviewed. OBJECTIVE: GENERAL: The patient is an 86-year-old female who is awake, alert. She is oriented to person, place, time and situation. She is a verbal conversationalist, just a little delayed, does not appear to be any acute distress. VITAL SIGNS: As follows: Temperature 98.5, pulse 61, respirations 18, blood pressure 134/82, oxygen saturation 99% on room air. SKIN: Pale, dry. No rash. She is not diaphoretic. HEENT: Pupils are reactive. Conjunctivae pale. There is no evidence of JVP. CARDIOVASCULAR: Heart is irregularly irregular. There is no rub. CHEST: Diminished, symmetrical and unlabored. ABDOMEN: Soft, nontender. Nondistended. EXTREMITIES: No clubbing, cyanosis or edema. PSYCHIATRIC: Appropriate affect, pleasant mood. DIAGNOSTICS Lab values are as follows: Hematology obtained on 08/07/2017: WBC 4.3, hemoglobin 8.0, hematocrit 23.9, platelet count 227,000. Chemistry obtained on 08/07/2017: Sodium 146, potassium 4.2, chloride 108, carbon dioxide 26, BUN 25, creatinine 1.29, glucose 104, calcium 9.4. IMPRESSION AND PLAN: 1. EPISTAXIS. I have discussed chronic anticoagulation with the patient. It appears that this needs to be forgone as the patient's risk of bleeding is profound. She has had 3 ER visits associated with this and now an impatient stay and has required transfusion. 2. CHRONIC ATRIAL FIBRILLATION. The patient is rate controlled. Continue home medication. 3. ACUTE BLOOD LOSS ANEMIA SECONDARY TO ABOVE. The patient is quite symptomatic at this point. We will go ahead and give her a unit of blood and follow. 4. HYPERTENSION. The patient's blood pressures have been in acceptable range. We will continue current medications. DISPOSITION: The patient is a FULL CODE. Pending patient's symptomatology and diagnostic findings, we will reevaluate in the a.m. for possible discharge. Time spent on this followup including assessment and plan, physical examination, patient education, review of records and family meeting is 25 minutes. DICTATING PHYSICIAN: JOSE HANLEY NP [id number] PHY#: [id number] ID: [id number] JOB#: [id number] ACCT: [id number] cc: >
[2017-08-07] MEDS ORDERED: FLUCONAZOLE 100 MG TABLET PO ONE (10:00)
[2017-08-07] MEDS: DIPHENHYDRAMINE HCL 25 MG CAPSULE PO PRN ×2 (11:02→22:50)
--- NOTE | 2017-08-07 14:55 | OPERATIVE REPORT E ---
Operative Report NAME: MOHAN ALVARENGA : 1930 AGE: 86Y DATE OF SURGERY: 08/05/2017 ROOM: 429 PREOPERATIVE DIAGNOSIS: RECURRENT ACUTE EPISTAXIS. POSTOPERATIVE DIAGNOSIS: RECURRENT ACUTE EPISTAXIS. OPERATIONS: 1. Control of complicated right anterior, mid, and posterior epistaxis with extensive cautery and packing in the main operating room under general anesthesia with rigid transnasal surgical endoscopy. 3. Control of complicated anterior left epistaxis with cautery and packing in the main operating room under general anesthesia with rigid transnasal surgical endoscopy. 2. Exam under anesthesia of the nose, bilateral, with use of rigid transnasal surgical endoscopy. SURGEON: BILL DOTY D.O. ANESTHESIA: General endotracheal tube. ANESTHESIA STAFF: SUSI Curiel. ESTIMATED BLOOD LOSS: 50 mL. FLUIDS: None. COMPLICATIONS: None. DRAINS: None. SPONGE COUNT: Verified. MATERIALS FORWARDED SPECIMEN: None. FINDINGS: 1. The patient was with active bleeding throughout the right nasal passage at the anterior, mid, and posterior aspects which included the septum, inferior turbinate, and lateral postnasal area/choana/superior torous aspect. 2. Left caudal septum active bleeding at Little's area. 3. Right mid posterior septal area of bleeding is in the area of a maxillary crest spur/septal spur. 4. There was extensive blood and blood clots that were identified and removed. 5. Patient was with a 9 cm Rapid Rhino Rocket in the right nasal passage, which extended back to the nasopharynx, and a left Merocel pack. 6. No sinonasal polyps or sinus discharge noted. 7. Left nasal septal deviation and right maxillary crest/septal spur. INDICATIONS: This is an 86-year-old white female who has been seen and evaluated in the [place] [facility] setting, as well as the [place] [facility] office. The patient is with history of A-fib as well and takes Eliquis 2.5 mg p.o. twice daily. The patient is with history of prominent acute recurrent epistaxis, especially affecting the right side. The patient was seen in the [place] [facility] approximately 1 week prior with prominent epistaxis, with placement of a right Rapid Rhino Rocket. Request was for ENT evaluation, and the patient was seen approximately 3 days after the pack was placed. The pack was removed in the office setting and the patient underwent flexible fiberoptic endoscopy as well as rigid transnasal diagnostic endoscopy with application of silver nitrate at the anterior and mid septum and right turbinate inferiorly. There was adequate hemostasis noted with Bacitracin ointment applied. The patient returned to the [place] [facility] in the middle of the night on , with prominent persistent right epistaxis, which was very difficult to control in the emergency room setting, with bleeding persisting. ENT was requested to come in for evaluation and management. In the emergency room setting, the ENT evaluation included flexible and rigid bilateral transnasal diagnostic endoscopy with suctioning but due to persistent epistaxis from multiple locations 7.5-cm Rapid Rhino Rocket was positioned posteriorly which extended into the nasopharynx and was inflated. This allowed epistaxis to be significantly slowed. The left Merocel pack was also repositioned and left in place. After extensive discussion with the ER physician regarding transfer to a higher level of care for consideration of embolization versus attempt at initial control in the main operating room. The case was also discussed with the anesthesia staff at [facility] and a decision and plan was made to proceed to the main OR at [place]. The patient's son arrived in the ER and he had also accompanied her in the ENT clinic setting. The patient care plan was discussed with both the patient and her son, and they were in agreement to proceed. The risks and complications of control of epistaxis in the main operating room setting and potential need for embolization were all discussed. They voiced an understanding of the described surgical and care plan, and were in agreement. Consent was obtained to proceed to the main operating room. PROCEDURE: The patient was taken to the main operating room and placed on the operating room table in the supine position. Appropriate monitors were placed. Using mask and IV access, general anesthesia was induced. The patient was transorally intubated without difficulty. The patient was then positioned and prepped for nasal surgery. The patient underwent injection of local anesthetic with epinephrine. The patient was then prepped and draped in the usual fashion for nasal surgery. At this point, the left nasal pack was removed and the nose was suctioned and irrigated. Rigid transnasal surgical endoscopy was utilized. There was only bleeding identified at the left caudal septal Little's area. There were no sinonasal polyps or other discharge noted. At this point, silver nitrate cautery was applied to the area of bleeding at left Little's location. Attention was now turned to the right side, with extensive bipolar electrocautery being utilized along aspects of the right inferior turbinate, anterior, mid, and posterior, as well as at the anterior, mid, and posterior septum. Cautery was also performed at the floor anteriorly on the right. Suction electrocautery was also utilized to cauterize superior to the right eustachian tube torus and lateral posterior nasal passage/choana area. There was irrigation performed at various times. This was suctioned. There was adequate hemostasis noted. Throughout the control of epistaxis proceeding on the right rigid transnasal surgical endoscopy was utilized. On the left, attention was turned once again, and a return of bleeding was sgain noted at the left Little's area. This was followed by use of bipolar electrocautery for definitive hemostasis. At this point, extensive nasal irrigation was performed and gently suctioned. Adequate hemostasis was noted bilateral. The patient had 1 Telfa nasal pack placed per side with Bacitracin ointment as well as the appication of FloSeal along the length of each pack and throughout the nasal passages. These were secured at the caudal aspect with silk suture, which was also secured outside the nose. There was no active bleeding noted at the end of the case. Intraoperatively, a plan was also made to admit the patient to the hospital for observation, and the hospitalist staff was notified and agreed to assist with the inpatient management. The patient was allowed to emerge from general anesthesia and was extubated in the main operating room. She was then transported to the post anesthesia recovery unit in stable condition. There were no complications. The patient was then transported to the post anesthesia recovery unit in stable condition. There were no complications. DICTATING PHYSICIAN: BILL DOTY D.O. [id number] PHY#: [id number] ID: [id number] JOB#: [id number] ACCT: [id number] cc:BILL DOTY D.O. > MTDD
[2017-08-08] MEDS: SODIUM CHLORIDE NASAL SPRAY 44 ML NASL SCH ×5 (01:18→23:46)
[2017-08-08] MEDS: AMOXICILLIN TR/POT CLAVULANATE 500-125 MG TAB PO SCH ×3 (05:28→22:04)
[2017-08-08 05:33] LABS: HEMATOCRIT 34.2 % (36.0-47.0); MEAN CORPUSCULAR HGB CONC 33.4 g/dL (32.0-36.0); MEAN CORPUSCULAR VOLUME 90 fl (80-97); PLATELET COUNT 334 10^3/uL (150-450); RED CELL DISTRIBUTION WIDTH 14.5 % (11.5-14.0); WHITE BLOOD COUNT 14.1 10^3/uL (4.0-10.5)
[2017-08-08 05:42] LABS: HEMOGLOBIN 11.4 g/dL (12.0-15.5)
[2017-08-08 06:02] LABS: ANION GAP 15 (5-19); BLOOD UREA NITROGEN 22 mg/dL (7-20); CALCIUM 10.2 mg/dL (8.4-10.2); CARBON DIOXIDE 25 mmol/L (22-30); CHLORIDE 106 mmol/L (98-107); GLUCOSE 110 mg/dL (75-110); POTASSIUM 4.1 mmol/L (3.6-5.0); SODIUM 145.8 mmol/L (137-145)
[2017-08-08] MEDS: METOPROLOL SUCCINATE 50 MG TAB.SR.24H PO SCH ×2 (08:20→22:04)
[2017-08-08] MEDS: ATORVASTATIN CALCIUM 40 MG TABLET PO SCH (10:00)
[2017-08-08] MEDS: AMLODIPINE BESYLATE 5 MG TABLET PO SCH (10:00)
[2017-08-08] MEDS: DOCUSATE SODIUM 100 MG CAPSULE PO SCH (10:00)
[2017-08-08] MEDS: VALSARTAN 160 MG TABLET PO SCH ×2 (10:01→22:04)
[2017-08-08] MEDS: OXYMETAZOLINE HCL 0.05% NASAL SPRAY 15 ML BOTTLE NASL SCH ×2 (10:01→22:04)
[2017-08-08] MEDS: FUROSEMIDE 20 MG TABLET PO SCH (10:03)
--- NOTE | 2017-08-08 12:55 | PROGRESS NOTE E ---
Progress Note NAME: MOHAN ALVARENGA : 1930 AGE: 86Y DATE: 08/08/2017 ROOM: 429 SUBJECTIVE: The patient is lying in bed. I had a discussion with the patient's son as well as the patient, and the patient would like to work with Physical Therapy today and then make a decision about rehab. She will talk with her family about it tonight. The patient overall has been quite weak and quite deconditioned. The patient has been afebrile. Her blood pressures have been in a good range. The patient has had no reported episodes of vomiting nor diarrhea, and the patient does not voice any other concerns at this time. REVIEW OF SYSTEMS: The rest of the review of systems is negative. MEDICATIONS: Medications have been reviewed. OBJECTIVE: GENERAL: The patient is an 86-year-old female who is awake, alert. She is oriented to person, place, time, does not appear to be distressed. VITAL SIGNS: As follows: Temperature is 97.9, pulse 81, respirations 20, blood pressure is 143/79, oxygen saturation is 98% on room air. SKIN: Warm and dry. No rash. She is not diaphoretic. HEENT: Pupils are reactive. NECK: The patient does have a benign neck mass that is followed by her primary care provider on the right side. No evidence of JVP. CARDIOVASCULAR: Heart is irregularly irregular. There is no murmur or rub. CHEST: Clear, symmetrical, unlabored. ABDOMEN: Soft, nontender, nondistended. BACK: No CVA tenderness or sacral edema. EXTREMITIES: No clubbing, cyanosis, edema. PSYCHIATRIC: Appropriate affect. Pleasant mood. DIAGNOSTICS: Lab values are as follows. Hematology obtained on 08/08/2017: WBCs are 14.1, hemoglobin is 11.4, hematocrit is 34.2, and platelet count is 334,000. Chemistry obtained on 08/08/2017: Sodium is 145, potassium 4.1, chloride is 106, carbon dioxide 25, BUN 22, creatinine is 1.2, glucose is 110, calcium is 10.2, magnesium is 1.8. IMPRESSION AND PLAN: 1. EPISTAXIS. Have discussed chronic anticoagulation with the patient. Did also touch base with Cardiology about this. Will discontinue the patient's anticoagulation given that she has had profound bleeding in the past; this has required transfusion. The patient has had 3 ER visits alone associated with bleeding. The patient's packing remains in place. The patient is being followed by ENT. 2. CHRONIC ATRIAL FIBRILLATION. The patient is rate controlled. Continue home medicines. 3. ACUTE BLOOD LOSS ANEMIA SECONDARY TO #1. The patient is quite asymptomatic at this point. 4. HYPERTENSION. The patient's blood pressures have been in an acceptable range. Will continue current medications. 5. PHYSICAL DECONDITIONING. The patient is going to discuss rehab with her family today. DISPOSITION: THE PATIENT IS A FULL CODE. Pending the patient's symptomatology and diagnostic findings, will re-evaluate in the a.m. for possible discharge. Time spent on this followup, including assessment/plan, physical examination, patient education, review of records, and family meeting, is 20 minutes. DICTATING PHYSICIAN: JOSE HANLEY NP [id number] PHY#: [id number] ID: [id number] JOB#: [id number] ACCT: [id number] cc: >
[2017-08-09] MEDS: SODIUM CHLORIDE NASAL SPRAY 44 ML NASL SCH ×3 (05:13→17:37)
[2017-08-09] MEDS: AMOXICILLIN TR/POT CLAVULANATE 500-125 MG TAB PO SCH ×3 (05:15→22:04)
[2017-08-09] MEDS: AMLODIPINE BESYLATE 5 MG TABLET PO SCH (09:00)
[2017-08-09] MEDS: DOCUSATE SODIUM 100 MG CAPSULE PO SCH (09:00)
[2017-08-09] MEDS: VALSARTAN 160 MG TABLET PO SCH ×2 (09:00→22:04)
[2017-08-09] MEDS: OXYMETAZOLINE HCL 0.05% NASAL SPRAY 15 ML BOTTLE NASL SCH ×2 (09:01→22:04)
[2017-08-09] MEDS: METOPROLOL SUCCINATE 50 MG TAB.SR.24H PO SCH ×2 (09:01→22:04)
[2017-08-09 14:17] LABS: APPEARANCE,URINE CLEAR; BILIRUBIN,URINE NEGATIVE (NEGATIVE); COLOR,URINE STRAW; GLUCOSE, URINE NEGATIVE (NEGATIVE); KETONES,URINE NEGATIVE (NEGATIVE); LEUKOCYTE ESTERASE,URINE NEGATIVE (NEGATIVE); NITRITE,URINE NEGATIVE (NEGATIVE); PROTEIN,URINE NEGATIVE (NEGATIVE); URINE SPECIFIC GRAVITY 1.008; UROBILINOGEN,URINE NEGATIVE mg/dL (<2.0)
--- NOTE | 2017-08-09 15:07 | PDOC PROGRESS REPORT ---
Subjective Progress Note for:: 08/09/17 Subjective:: This is 86 years old female patient admitted for nasal bleeding. She had cauterization of bilateral nasal septum. Currently she has Bilateral nasal pack. No nasal bleeding. Reason For Visit: ACUTE BLOOD LOSS ANEMIA,SYMPTOMATIC ANEMIA Physical Exam Vital Signs: Temp Pulse Resp BP Pulse Ox 97.5 F 68 15 139/74 H 95 08/09/17 03:53 08/09/17 14:00 08/09/17 03:53 08/09/17 03:53 08/09/17 03:53 Intake & Output 08/08/17 08/09/17 08/10/17 06:59 06:59 06:59 Intake Total 2170 244 Output Total 2400 1200 Balance -230 -956 Weight 77.4 kg General appearance: PRESENT: no acute distress Head exam: PRESENT: atraumatic, normocephalic Eye exam: PRESENT: conjunctiva pink, EOMI, PERRLA. ABSENT: scleral icterus Ear exam: PRESENT: normal external ear exam Mouth exam: PRESENT: moist, tongue midline Neck exam: ABSENT: carotid bruit, JVD, lymphadenopathy, thyromegaly Respiratory exam: PRESENT: clear to auscultation austen. ABSENT: rales, rhonchi, wheezes Cardiovascular exam: PRESENT: irregular rhythm. ABSENT: diastolic murmur, rubs , systolic murmur Pulses: PRESENT: normal dorsalis pedis pul Vascular exam: PRESENT: normal capillary refill GI/Abdominal exam: PRESENT: normal bowel sounds, soft. ABSENT: distended, guarding, mass, organolmegaly, rebound, tenderness Rectal exam: PRESENT: deferred Extremities exam: PRESENT: full ROM. ABSENT: calf tenderness, clubbing, pedal edema Neurological exam: PRESENT: alert, awake Psychiatric exam: PRESENT: normal mood Skin exam: PRESENT: dry, intact, warm. ABSENT: cyanosis, rash Results Laboratory Results: 08/08/17 04:49 08/08/17 04:49 08/09/17 12:05 Urine Color STRAW Urine Appearance CLEAR Urine pH 7.0 Ur Specific [place] 1.008 Urine Protein NEGATIVE Urine Glucose (UA) NEGATIVE Urine Ketones NEGATIVE Urine Blood NEGATIVE Urine Nitrite NEGATIVE Ur Leukocyte Esterase NEGATIVE Urine WBC (Auto) 4 Assessment & Plan - Diagnosis (1) Epistaxis Is this a current diagnosis for this admission?: Yes Plan: Status post electrocautery and nasal pack. Possibly the nasal packing can be removed by her ENT. (2) Atrial fibrillation Qualifiers: Atrial fibrillation type: chronic Qualified Code(s): I48.2 - Chronic atrial fibrillation Is this a current diagnosis for this admission?: Yes Plan: Controlled. I will discuss with her ENT surgeon regarding resumption of her Eliquis (3) Hypertension Qualifiers: Hypertension type: essential hypertension Qualified Code(s): I10 - Essential (primary) hypertension Is this a current diagnosis for this admission?: Yes Plan: Continue current regimen. (4) Stage III chronic kidney disease Is this a current diagnosis for this admission?: Yes Plan: We will avoid nephrotoxic agents. - Time Time Spent with patient: 25-34 minutes
[2017-08-09] MEDS: ATORVASTATIN CALCIUM 40 MG TABLET PO SCH (22:05)
[2017-08-10] MEDS: AMOXICILLIN TR/POT CLAVULANATE 500-125 MG TAB PO SCH ×3 (05:57→22:18)
[2017-08-10] MEDS: SODIUM CHLORIDE NASAL SPRAY 44 ML NASL SCH ×4 (05:57→17:06)
[2017-08-10] MEDS: AMLODIPINE BESYLATE 5 MG TABLET PO SCH (09:43)
[2017-08-10] MEDS: VALSARTAN 160 MG TABLET PO SCH ×2 (09:44→22:19)
[2017-08-10] MEDS: DOCUSATE SODIUM 100 MG CAPSULE PO SCH (09:44)
[2017-08-10] MEDS: METOPROLOL SUCCINATE 50 MG TAB.SR.24H PO SCH ×2 (09:44→22:19)
[2017-08-10] MEDS: FUROSEMIDE 20 MG TABLET PO SCH (09:45)
[2017-08-10] MEDS: OXYMETAZOLINE HCL 0.05% NASAL SPRAY 15 ML BOTTLE NASL SCH ×2 (09:46→22:18)
--- NOTE | 2017-08-10 14:04 | PDOC PROGRESS REPORT ---
Subjective Subjective:: I seen patient while she is lying in bed. No significant event overnight. I discussed the case with ENT surgeon Dr. Sanches who planned to remove the nasal pack and he said he preferred to do it in the hospital setting. He will let us know if it is okay to resume her Eliquis. Her H&H remained stable. She is potential discharge for tomorrow. Reason For Visit: ACUTE BLOOD LOSS ANEMIA,SYMPTOMATIC ANEMIA Physical Exam Vital Signs: Temp Pulse Resp BP Pulse Ox 97.3 F 90 16 144/79 H 99 08/10/17 11:00 08/10/17 11:00 08/10/17 11:00 08/10/17 11:00 08/10/17 11:00 Intake & Output 08/09/17 08/10/17 08/11/17 06:59 06:59 06:59 Intake Total 244 1132 Output Total 1200 1150 Balance -956 -18 Weight 77.1 kg General appearance: PRESENT: no acute distress Ear exam: PRESENT: normal external ear exam Mouth exam: PRESENT: moist Respiratory exam: PRESENT: clear to auscultation [place]. ABSENT: rales, rhonchi, wheezes Cardiovascular exam: PRESENT: RRR. ABSENT: diastolic murmur, rubs, systolic murmur GI/Abdominal exam: PRESENT: normal bowel sounds, soft. ABSENT: distended, guarding, mass, organolmegaly, rebound, tenderness Neurological exam: PRESENT: alert, awake, oriented to time, oriented to situation Results Laboratory Results: 08/08/17 04:49 08/08/17 04:49 08/09/17 12:05 Urine Color STRAW Urine Appearance CLEAR Urine pH 7.0 Ur Specific [place] 1.008 Urine Protein NEGATIVE Urine Glucose (UA) NEGATIVE Urine Ketones NEGATIVE Urine Blood NEGATIVE Urine Nitrite NEGATIVE Ur Leukocyte Esterase NEGATIVE Urine WBC (Auto) 4 Assessment & Plan - Diagnosis (1) Epistaxis Is this a current diagnosis for this admission?: Yes Plan: Has stopped. States she has bilateral nasal packing and she is scheduled for removal tomorrow. (2) Atrial fibrillation Qualifiers: Atrial fibrillation type: chronic Qualified Code(s): I48.2 - Chronic atrial fibrillation Is this a current diagnosis for this admission?: Yes Plan: Controlled. I will discuss with her ENT surgeon regarding resumption of her Eliquis (3) Hypertension Qualifiers: Hypertension type: essential hypertension Qualified Code(s): I10 - Essential (primary) hypertension Is this a current diagnosis for this admission?: Yes Plan: Continue current regimen. (4) Stage III chronic kidney disease Is this a current diagnosis for this admission?: Yes Plan: We will avoid nephrotoxic agents.
[2017-08-10] MEDS: ATORVASTATIN CALCIUM 40 MG TABLET PO SCH (22:19)
[2017-08-11] MEDS: SODIUM CHLORIDE NASAL SPRAY 44 ML NASL SCH ×4 (00:05→17:31)
[2017-08-11 05:31] LABS: ABSOLUTE BASOPHILS # (AUTO) 0.1 10^3/uL (0.0-0.2); ABSOLUTE EOSINOPHILS # (AUTO) 0.4 10^3/uL (0.0-0.6); ABSOLUTE LYMPHOCYTES (AUTO) 1.2 10^3/uL (0.5-4.7); ABSOLUTE NEUT (AUTO) 6.6 10^3/uL (1.7-8.2); BASOPHILS % (AUTO) 1.2 % (0-2); HEMATOCRIT 31.8 % (36.0-47.0); HEMOGLOBIN 10.7 g/dL (12.0-15.5); LYMPHOCYTES % (AUTO) 13.1 % (13-45); MEAN CORPUSCULAR HEMOGLOBIN 29.8 pg (27.0-33.4); MEAN CORPUSCULAR HGB CONC 33.6 g/dL (32.0-36.0); MEAN CORPUSCULAR VOLUME 89 fl (80-97); MONOCYTES % (AUTO) 10.3 % (3-13); PLATELET COUNT 293 10^3/uL (150-450); RED CELL DISTRIBUTION WIDTH 14.6 % (11.5-14.0); SEGMENTED NEUTROPHILS % (AUTO) 71.4 % (42-78); TOTAL CELLS COUNTED % (AUTO) 100 %; WHITE BLOOD COUNT 9.2 10^3/uL (4.0-10.5)
[2017-08-11] MEDS: AMOXICILLIN TR/POT CLAVULANATE 500-125 MG TAB PO SCH ×3 (06:13→22:15)
[2017-08-11] MEDS: METOPROLOL SUCCINATE 50 MG TAB.SR.24H PO SCH ×2 (07:51→22:15)
[2017-08-11] MEDS: OXYMETAZOLINE HCL 0.05% NASAL SPRAY 15 ML BOTTLE NASL SCH ×2 (10:21→22:16)
[2017-08-11] MEDS: VALSARTAN 160 MG TABLET PO SCH ×2 (10:21→22:15)
[2017-08-11] MEDS: DOCUSATE SODIUM 100 MG CAPSULE PO SCH (10:21)
[2017-08-11] MEDS: AMLODIPINE BESYLATE 5 MG TABLET PO SCH (10:21)
--- NOTE | 2017-08-11 15:58 | PDOC DISCHARGE SUMMARY ---
General - Admit/Disc Date/PCP Admission Date/Primary Care Provider: 08/07/17 09:11 DEBBIE PICKARD MD Discharge Date: 08/11/17 - Discharge Diagnosis (1) Epistaxis Is this a current diagnosis for this admission?: Yes (2) Atrial fibrillation Is this a current diagnosis for this admission?: Yes (3) Hypertension Is this a current diagnosis for this admission?: Yes (4) Stage III chronic kidney disease Is this a current diagnosis for this admission?: Yes - Additional Information Resuscitation Status: Full Code Home Medications: Amlodipine Besylate [Norvasc 5 mg Tablet] 5 mg PO DAILY 08/05/17 Apixaban [Eliquis] 2.5 mg PO Q12 08/05/17 Atorvastatin Calcium [Lipitor 40 mg Tablet] 40 mg PO DAILY 08/05/17 Furosemide [Lasix 20 mg Tablet] 20 mg PO Q2D 08/05/17 Metoprolol Succinate [Toprol Xl 50 mg Tab.sr] 50 mg PO QHS 08/05/17 Metoprolol Succinate [Toprol Xl 50 mg Tab.sr] 100 mg PO QAM 08/05/17 Ondansetron [Zofran Odt 4 mg Tablet] 4 mg PO Q6HP PRN 08/05/17 Tramadol HCl [Ultram 50 mg Tablet] 50 mg PO Q8HP PRN 08/05/17 Valsartan [Diovan 160 mg Tablet] 160 mg PO Q12 08/05/17 History of Present Illness History of Present Illness: MOHAN ALVARENGA is a 86 year old female presents emergency room with complaints of nasal bleed which has been recurrent about 5 times in the last week or so. She says she has had cauterization performed by ENT doctor. She had been on Eliquis for about 2 years and never had any problems with it was started bleeding this week. She was taken to the OR again today and after her procedure medicine is been advised to admit her for overnight observation. Hospital Course Hospital Course: This is a 86 years old female patient presents with recurrent nasal bleeding and acute blood loss anemia. Initially patient admitted by ENT surgeon later transferred to the hospitalist service. She undergone cauterization of the right nasal septum and bilateral nasal packing. Her hemoglobin remained between 10 and 11. In the meantime also we will hold her Eliquis that she had been taking for A. fib. Patient is scheduled for removal of nasal packing today by Dr. Sanches. Otherwise patient remained stable she does not have any acute new complaints. Her vital signs stable and labs are within normal limits and she is good to go once she is released by Dr. Sanches. Physical Exam Vital Signs: Temp Pulse Resp BP Pulse Ox 97.4 F 77 20 135/51 H 95 08/11/17 12:09 08/11/17 12:09 08/11/17 12:09 08/11/17 12:09 08/11/17 12:09 Intake & Output 08/10/17 08/11/17 08/12/17 06:59 06:59 06:59 Intake Total 1132 0 Output Total 1150 300 Balance -18 -300 Weight 77.1 kg 45.3 kg General appearance: PRESENT: no acute distress Mouth exam: PRESENT: moist Neck exam: ABSENT: carotid bruit, JVD, lymphadenopathy, thyromegaly Respiratory exam: PRESENT: clear to auscultation austen. ABSENT: rales, rhonchi, wheezes Cardiovascular exam: PRESENT: irregular rhythm. ABSENT: diastolic murmur, rubs , systolic murmur GI/Abdominal exam: PRESENT: normal bowel sounds, soft. ABSENT: distended, guarding, mass, organolmegaly, rebound, tenderness Neurological exam: PRESENT: alert, awake, oriented to time, oriented to situation Psychiatric exam: PRESENT: normal mood Results Laboratory Results: 08/11/17 04:42 08/08/17 04:49 08/11/17 04:42 WBC 9.2 RBC 3.60 L Hgb 10.7 L Hct 31.8 L MCV 89 MCH 29.8 MCHC 33.6 RDW 14.6 H Plt Count 293 Seg Neutrophils % 71.4 Lymphocytes % 13.1 Monocytes % 10.3 Eosinophils % 4.0 Basophils % 1.2 Absolute Neutrophils 6.6 Absolute Lymphocytes 1.2 Absolute Monocytes 1.0 Absolute Eosinophils 0.4 Absolute Basophils 0.1 Qualifiers - * PATIENT BEING DISCHARGED WITH ANY OF THE FOLLOWING DIAGNOSIS: No
[2017-08-11] MEDS: MAG HYDROX/AL HYDROX/SIMETH SUSP 30 ML UDCUP PO PRN (18:06)
[2017-08-11] MEDS: ATORVASTATIN CALCIUM 40 MG TABLET PO SCH (22:15)
[2017-08-12] MEDS: SODIUM CHLORIDE NASAL SPRAY 44 ML NASL SCH ×2 (00:08→06:26)
[2017-08-12] MEDS: AMOXICILLIN TR/POT CLAVULANATE 500-125 MG TAB PO SCH (06:15)
[2017-08-12] MEDS: MAG HYDROX/AL HYDROX/SIMETH SUSP 30 ML UDCUP PO PRN (06:15)
[2017-08-12 08:14] VITALS: BP 147/79
[2017-08-12] MEDS: METOPROLOL SUCCINATE 50 MG TAB.SR.24H PO SCH (09:14)
== END 2017-08-12 09:10 | disposition home or self-care (01) | DRG 982 ==
LOC: ER 03:46 → UNDOADMOB 06:40 → EH 06:40 → 4S 10:34 → EH 10:34 → OBSVTOIN 08-07 09:11
PROVIDERS: ADMIT Internal Medicine; ATTEND Internal Medicine
PROC: 2Y41X5Z Packing of Nasal Region using Packing Material (ICD-10-PCS; 2017-08-05)
PROC: 3E0F73Z Introduction of Anti-inflammatory into Respiratory Tract, Via Natural or Artificial Opening (ICD-10-PCS; 2017-08-05)
PROC: 2Y51X5Z Removal of Nasal Packing Material (ICD-10-PCS; 2017-08-05)
PROC: 0W3Q7ZZ Control Bleeding in Respiratory Tract, Via Natural or Artificial Opening (ICD-10-PCS; principal; 2017-08-05 07:30)
PROC: 30233N1 Transfusion of Nonautologous Red Blood Cells into Peripheral Vein, Percutaneous Approach (ICD-10-PCS; 2017-08-07)
DX: R04.0 Epistaxis (principal); D62 Acute posthemorrhagic anemia; I13.0 Hypertensive heart and chronic kidney disease with heart failure and stage 1 through stage 4 chronic kidney disease, or unspecified chronic kidney disease; N18.3 Chronic kidney disease, stage 3 (moderate); I50.9 Heart failure, unspecified; K44.9 Diaphragmatic hernia without obstruction or gangrene; I48.2 Chronic atrial fibrillation; J34.2 Deviated nasal septum; J34.89 Other specified disorders of nose and nasal sinuses; R22.1 Localized swelling, mass and lump, neck; Z90.49 Acquired absence of other specified parts of digestive tract; Z90.711 Acquired absence of uterus with remaining cervical stump; Z79.899 Other long term (current) drug therapy; Z88.6 Allergy status to analgesic agent; Z88.2 Allergy status to sulfonamides
CPT/HCPCS: 00160; 36415; 36430; 80048; 81001; 83735; 85025; 85027; 85610; 85730; 86850; 86900; 86901; 86920; 94762; 99285; G0378; G0379; G8978-GP; G8979-GP; J0330; J1100; J2250; J2704; J3010; J3490; J7120; P9016

== ENCOUNTER 2017-08-24 06:30 | Emergency (ER) | payer MEDICARE, OTHER ==
--- NOTE | 2017-08-24 07:10 | ER Document Report ---
ED ENT - General Mode of Arrival: Ambulatory Information source: Patient TRAVEL OUTSIDE OF THE [place] IN LAST 30 DAYS: No <HIRAL DRUMMOND - Last Filed: 08/24/17 08:02> <DASH CLINTON - Last Filed: 08/24/17 16:37> - General Chief Complaint: Nose Bleed Stated Complaint: NOSE BLEED Time Seen by Provider: 08/24/17 07:02 Notes: 87-year-old female presenting to the emergency department today with complaints of nosebleed. Patient was here on 07/16 and 07/30 with complicated nosebleeds that eventually had to be cauterized in the operating room. Patient had an anterior mid bleed and a posterior bleed on 07/30 and was admitted for several days post op. Unfortunately patient was started back on Eliquis. Patient states the bleeding began at 0600. (HIRAL DRUMMOND) - Related Data Allergies/Adverse Reactions: aspirin [Aspirin] Allergy (Intermediate, Verified 07/30/17 08:34) GI BLEED Sulfa (Sulfonamide Antibiotics) Allergy (Verified 07/30/17 08:34) Past Medical History - General Information source: Patient - Social History Smoking Status: Never Smoker Cigarette use (# per day): No Chew tobacco use (# tins/day): No Frequency of alcohol use: None Drug Abuse: None Lives with: Family Family History: Reviewed & Not Pertinent Patient has suicidal ideation: No Patient has homicidal ideation: No - Past Medical History Cardiac Medical History: Reports: Hx Atrial Fibrillation, Hx Congestive Heart Failure, Hx Hypertension GI Medical History: Reports: Hx Hiatal Hernia Past Surgical History: Reports: Hx Cholecystectomy, Hx Hysterectomy <HIRAL DRUMMOND - Last Filed: 08/24/17 08:02> Review of Systems - Review of Systems Constitutional: No symptoms reported EENT: Other - nose bleed, bleeding now controlled Cardiovascular: No symptoms reported Respiratory: No symptoms reported Gastrointestinal: No symptoms reported Genitourinary: No symptoms reported Female Genitourinary: No symptoms reported Musculoskeletal: No symptoms reported Skin: No symptoms reported Hematologic/Lymphatic: No symptoms reported Neurological/Psychological: No symptoms reported -: Yes All other systems reviewed and negative <HIRAL DRUMMOND - Last Filed: 08/24/17 08:02> - Vital signs Vitals: Resp Pulse Ox 16 98 08/24/17 06:41 08/24/17 06:41 Course <HIRAL DRUMMOND - Last Filed: 08/24/17 08:02> - Laboratory Result Diagrams: 08/24/17 07:40 08/24/17 07:40 <DASH CLINTON - Last Filed: 08/24/17 16:37> - Re-evaluation Re-evalutation: 08/24/17 10:23 The patient's presentation was discussed with Dr. Beaulieu who took her to the operating room on her admission on 08/05/2017. At his request I discussed the case with ENT at [facility]. Dr. Jackson recommended that the patient have her nasal cavity packed and the Eliquis be stopped. Dr. Beaulieu been requested that I have the hospitalist come talk with the family and make a decision about stopping Eliquis with her known atrial fibrillation. Dr. Roth was involved with her care on the previous admission, and has agreed to come speak with the patient and her son. 08/24/17 16:24 Dr. Roth does recommend the Eliquis be stopped and the patient put on Plavix 75mg/day. By history, the patient's last dose of Eliquis was yesterday evening, so it will be safe to start her on Plavix tomorrow morning. 08/24/17 16:35 Dr. Dodson manages her medications including Eliquis. I called him and he would prefer she not take anything for antiplatelet therapy or anticoagulation for now , and he will see her tomorrow or the next day in the office and discuss whether or not to reinstitute any sort of therapy. (DASH CLINTON) - Vital Signs Vital signs: Temp Pulse Resp BP Pulse Ox 19 126/77 H 95 08/24/17 14:01 08/24/17 14:01 08/24/17 14:01 - Laboratory Laboratory results interpreted by me: 08/24/17 08/24/17 08/24/17 07:40 07:40 07:40 RBC 3.63 L Hgb 10.3 L Hct 30.9 L RDW 15.2 H PT 16.8 H Carbon Dioxide 21 L Est GFR ( Amer) 52 L Est GFR (Non-Af Amer) 43 L Glucose 116 H Alkaline Phosphatase 137 H Creatine Kinase < 20 L Total Protein 6.0 L Albumin 3.3 L Discharge <HIRAL DRUMMOND - Last Filed: 08/24/17 08:02> <DASH CLINTON - Last Filed: 08/24/17 16:37> - Discharge Clinical Impression: Epistaxis Condition: Stable Disposition: HOME, SELF-CARE Additional Instructions: Stop taking your Eliquis medication. Follow-up with Dr. Dodson in the office tomorrow or Tuesday. Follow-up with according to his instructions regarding the nosebleed and treatment today. RETURN TO THE EMERGENCY ROOM IF ANY NEW OR WORSENING SYMPTOMS. Referrals: CORNELIO DODSON MD [ACTIVE STAFF] - Follow up tomorrow Scribe Attestation: 08/24/17 08:23 I personally performed the services described in the documentation, reviewed and edited the documentation which was dictated to the scribe in my presence, and it accurately records my words and actions. (DASH CLINTON) Scribe Documentation - Scribe Written by Scribe:: Jaycob Calix, 08/24/2017 0807 acting as scribe for :: Karyn <HIRAL DRUMMOND - Last Filed: 08/24/17 08:02>
[2017-08-24 08:16] LABS: PROTHROMBIN TIME 16.8 SEC (11.4-15.4)
[2017-08-24 08:23] LABS: ABSOLUTE BASOPHILS # (AUTO) 0.2 10^3/uL (0.0-0.2); ABSOLUTE EOSINOPHILS # (AUTO) 0.6 10^3/uL (0.0-0.6); ABSOLUTE LYMPHOCYTES (AUTO) 1.8 10^3/uL (0.5-4.7); ABSOLUTE MONOCYTES (AUTO) 1.1 10^3/uL (0.1-1.4); ABSOLUTE NEUT (AUTO) 6.4 10^3/uL (1.7-8.2); BASOPHILS % (AUTO) 1.9 % (0-2); EOSINOPHILS % (AUTO) 5.7 % (0-6); HEMATOCRIT 30.9 % (36.0-47.0); HEMOGLOBIN 10.3 g/dL (12.0-15.5); LYMPHOCYTES % (AUTO) 17.7 % (13-45); MEAN CORPUSCULAR HEMOGLOBIN 28.3 pg (27.0-33.4); MEAN CORPUSCULAR HGB CONC 33.3 g/dL (32.0-36.0); MONOCYTES % (AUTO) 11.1 % (3-13); PLATELET COUNT 344 10^3/uL (150-450); RED BLOOD COUNT 3.63 10^6/uL (3.72-5.28); RED CELL DISTRIBUTION WIDTH 15.2 % (11.5-14.0); SEGMENTED NEUTROPHILS % (AUTO) 63.6 % (42-78); TOTAL CELLS COUNTED % (AUTO) 100 %; WHITE BLOOD COUNT 10.1 10^3/uL (4.0-10.5)
[2017-08-24 08:24] LABS: ALANINE AMINOTRANSFERASE 22 U/L (9-52); ALBUMIN 3.3 g/dL (3.5-5.0); ALKALINE PHOSPHATASE 137 U/L (38-126); ANION GAP 14 (5-19); ASPARTATE AMINO TRANSFERASE 23 U/L (14-36); BILIRUBIN,DIRECT 0.2 mg/dL (0.0-0.4); BILIRUBIN,TOTAL 1.1 mg/dL (0.2-1.3); BLOOD UREA NITROGEN 13 mg/dL (7-20); CALCIUM 9.7 mg/dL (8.4-10.2); CARBON DIOXIDE 21 mmol/L (22-30); CHLORIDE 107 mmol/L (98-107); CREATINE KINASE < 20 U/L (30-135); GLUCOSE 116 mg/dL (75-110); POTASSIUM 4.5 mmol/L (3.6-5.0); SODIUM 142.3 mmol/L (137-145)
[2017-08-24 08:38] LABS: MEAN CORPUSCULAR VOLUME 85 fl (80-97)
--- NOTE | 2017-08-24 11:00 | PDOC CONSULTATION ---
Consultation Consult Date: 08/24/17 Attending physician:: BILL DOTY Consult reason:: Patient with recurrent epistaxis History of Present Illness Admission Date/PCP: DEBBIE PICKARD MD History of Present Illness: MOHAN ALVARENGA is a 87 year old female patient with past medical history of recurrent epistaxis, blood loss anemia requiring PRBC transfusion, A. fib, hypertension and CKD presents with another episode of epistaxis. Patient is known to me from previous admission. Of note patient was discharged about 2 weeks ago from this hospital after she was treated for the same complaint. Today I seen patient resting in bed with nasal packing to her left nostril. Patient denies any trauma, fever, chills, palpitation, diaphoresis, chest pain, cough, nausea, vomiting, dizziness, blurring of vision or any seizure activity. Her blood work is stable. I have a long discussion with the patient and her son regarding the risks of taking Eliquis while having recurrent nasal bleeding and blood loss anemia and both convinced to stop the Eliquis. I discussed also the potential risk of stroke and possible and they verbalized that she understood. Since patient is allergic to aspirin I will switch her Eliquis to Plavix. While taking the Plavix still patient has epistaxis will take care off any anticoagulant totally. Past Medical History Cardiac Medical History: Reports: Atrial Fibrillation, Congestive Heart Failure , Hypertension GI Medical History: Reports: Hiatal Hernia Hematology: Denies: Anemia, Sickle Cell Disease Past Surgical History Past Surgical History: Reports: Cholecystectomy, Hysterectomy Denies: Amputation Social History Lives with: Family Smoking Status: Never Smoker Frequency of Alcohol Use: None Hx Recreational Drug Use: No Drugs: None Hx Prescription Drug Abuse: No - Advance Directive Resuscitation Status: Full Code Family History Family History: Reviewed & Not Pertinent, Hypertension Parental Family History Reviewed: Yes Children Family History Reviewed: Yes Sibling(s) Family History Reviewed.: Yes Medication/Allergy Home Medications: Amlodipine Besylate [Norvasc 5 mg Tablet] 5 mg PO DAILY 08/05/17 Atorvastatin Calcium [Lipitor 40 mg Tablet] 40 mg PO DAILY 08/05/17 Furosemide [Lasix 20 mg Tablet] 20 mg PO Q2D 08/05/17 Metoprolol Succinate [Toprol Xl 50 mg Tab.sr] 50 mg PO QHS 08/05/17 Metoprolol Succinate [Toprol Xl 50 mg Tab.sr] 100 mg PO QAM 08/05/17 Ondansetron [Zofran Odt 4 mg Tablet] 4 mg PO Q6HP PRN 08/05/17 Tramadol HCl [Ultram 50 mg Tablet] 50 mg PO Q8HP PRN 08/05/17 Valsartan [Diovan 160 mg Tablet] 160 mg PO Q12 08/05/17 Apixaban [Eliquis 2.5 mg Tablet] 2.5 mg PO BID #60 tablet 08/11/17 Allergies/Adverse Reactions: aspirin [Aspirin] Allergy (Intermediate, Verified 07/30/17 08:34) GI BLEED Sulfa (Sulfonamide Antibiotics) Allergy (Verified 07/30/17 08:34) Review of Systems Constitutional: PRESENT: as per HPI Eyes: PRESENT: as per HPI Ears: PRESENT: as per HPI Nose, Mouth, and Throat: PRESENT: as per HPI, other - Epistaxis Cardiovascular: PRESENT: as per HPI Genitourinary: PRESENT: as per HPI Neurological: PRESENT: as per HPI Psychiatric: PRESENT: as per HPI Endocrine: PRESENT: as per HPI Physical Exam Vital Signs: Temp Pulse Resp BP Pulse Ox 19 119/63 98 08/24/17 10:01 08/24/17 10:01 08/24/17 10:01 Intake & Output 08/23/17 08/24/17 08/25/17 06:59 06:59 06:59 Weight 63.049 kg General appearance: PRESENT: no acute distress Eye exam: PRESENT: conjunctiva pink Mouth exam: PRESENT: dry mucosa Neck exam: ABSENT: carotid bruit, JVD, lymphadenopathy, thyromegaly Respiratory exam: PRESENT: clear to auscultation austen. ABSENT: rales, rhonchi, wheezes Cardiovascular exam: PRESENT: irregular rhythm GI/Abdominal exam: PRESENT: normal bowel sounds, soft. ABSENT: distended, guarding, mass, organolmegaly, rebound, tenderness Extremities exam: PRESENT: full ROM. ABSENT: calf tenderness, clubbing, pedal edema Neurological exam: PRESENT: alert, awake, oriented to time, oriented to situation Results Laboratory Results: 08/24/17 07:40 08/24/17 07:40 08/24/17 08/24/17 08/24/17 07:40 07:40 07:40 WBC 10.1 RBC 3.63 L Hgb 10.3 L Hct 30.9 L MCV 85 D MCH 28.3 MCHC 33.3 RDW 15.2 H Plt Count 344 Seg Neutrophils % 63.6 Lymphocytes % 17.7 Monocytes % 11.1 Eosinophils % 5.7 Basophils % 1.9 Absolute Neutrophils 6.4 Absolute Lymphocytes 1.8 Absolute Monocytes 1.1 Absolute Eosinophils 0.6 Absolute Basophils 0.2 Sodium 142.3 Potassium 4.5 Chloride 107 Carbon Dioxide 21 L Anion Gap 14 BUN 13 Creatinine 1.19 Est GFR ( Amer) 52 L Est GFR (Non-Af Amer) 43 L Glucose 116 H Calcium 9.7 Magnesium 1.9 Total Bilirubin 1.1 AST 23 ALT 22 Alkaline Phosphatase 137 H Total Protein 6.0 L Albumin 3.3 L Blood Type A POSITIVE Antibody Screen NEGATIVE 08/24/17 08/24/17 07:40 08:10 Creatine Kinase < 20 L Troponin I 0.021 Assessment & Plan - Diagnosis (1) Epistaxis Is this a current diagnosis for this admission?: Yes Plan: Per ENT surgeon (2) Atrial fibrillation Qualifiers: Atrial fibrillation type: chronic Qualified Code(s): I48.2 - Chronic atrial fibrillation Is this a current diagnosis for this admission?: Yes Plan: I will discontinue her Eliquis and patient will be started on Plavix. (3) Hypertension Qualifiers: Hypertension type: essential hypertension Is this a current diagnosis for this admission?: Yes Plan: Continue home medications (4) Chronic kidney disease Qualifiers: Chronic kidney disease stage: stage 3 (moderate) Qualified Code(s): N18.3 - Chronic kidney disease, stage 3 (moderate) Is this a current diagnosis for this admission?: Yes Plan: Avoid nephrotoxic agents.
[2017-08-24 14:42] VITALS: BP 126/77
== END 2017-08-24 17:01 | disposition home or self-care (01) ==
LOC: ER 06:30
DX: R04.0 Epistaxis (principal); I13.0 Hypertensive heart and chronic kidney disease with heart failure and stage 1 through stage 4 chronic kidney disease, or unspecified chronic kidney disease; N18.3 Chronic kidney disease, stage 3 (moderate); I50.9 Heart failure, unspecified; I48.2 Chronic atrial fibrillation; Z88.6 Allergy status to analgesic agent; Z88.2 Allergy status to sulfonamides; Z90.49 Acquired absence of other specified parts of digestive tract; Z90.710 Acquired absence of both cervix and uterus; Z79.02 Long term (current) use of antithrombotics/antiplatelets
CPT/HCPCS: 36415; 80053; 82550; 83735; 84484; 85025; 85610; 86850; 86900; 86901; 99284

== ENCOUNTER 2017-08-30 17:35 | Emergency (ER) | payer MEDICARE, OTHER ==
--- NOTE | 2017-08-30 17:49 | ER Document Report ---
ED Neuro Symptoms/Deficit - General Stated Complaint: WEAKNESS Time Seen by Provider: 08/30/17 17:43 Information source: Emergency Med Personnel Notes: 87-year-old female that presents by EMS with the onset around one half hour ago of some altered mental status, gazing to the left, not moving the right upper lower extremity. This was witnessed by family who was supposedly in route. Reviewing the patient's past medical chart it appears that the patient has been here recently multiple times for complicated nosebleeds: "07/16 and 07/30 with complicated nosebleeds that eventually had to be cauterized in the operating room. Patient had an anterior mid bleed and a posterior bleed on 07/30 and was admitted for several days post op." She was just seen here recently on the secondary to some nosebleeds as well and was discontinued on her Eliquis. TRAVEL OUTSIDE OF THE [place] IN LAST 30 DAYS: No - HPI Onset: Just prior to arrival Awoke with symptoms: No Symptoms are: Constant Duration: Continues in ED Severity: Severe Loss of consciousness: Unsure Was STROKE ALERT Called: Yes Baseline Cognitive: Unknown Baseline Gait: Unknown Character of altered mental status: Decreased responsiveness New weakness: RUE, R facial Altered sensation: RLE Impaired speech/swallowing: Difficult Associated symptoms: Other - Unable to obtain secondary to patient's condition Similar symptoms previously: No Recently seen / treated by doctor: Yes - Related Data Allergies/Adverse Reactions: aspirin [Aspirin] Allergy (Intermediate, Verified 07/30/17 08:34) GI BLEED Sulfa (Sulfonamide Antibiotics) Allergy (Verified 07/30/17 08:34) Past Medical History - Social History Smoking Status: Unknown if Ever Smoked Cigarette use (# per day): No Chew tobacco use (# tins/day): No Smoking Education Provided: No Frequency of alcohol use: None Drug Abuse: None Family History: Reviewed & Not Pertinent, Hypertension - Past Medical History Cardiac Medical History: Reports: Hx Atrial Fibrillation, Hx Congestive Heart Failure, Hx Hypertension Renal/ Medical History: Denies: Hx Peritoneal Dialysis GI Medical History: Reports: Hx Hiatal Hernia Past Surgical History: Reports: Hx Cholecystectomy, Hx Hysterectomy Review of Systems - Review of Systems -: Yes ROS unobtainable due to patient's medical condition Physical Exam - Vital signs Vitals: Resp Pulse Ox 18 96 08/30/17 18:04 08/30/17 18:04 Interpretation: Normal Notes: Reviewed vital signs and nursing note as charted by RN. CONSTITUTIONAL: Patient is looking to the left and unresponsive. She is opening and closing her mouth and moving the left upper extremity. She appears to be protecting her airway HEAD: Normocephalic; atraumatic EYES: PERRL ENT: Normal nose; no rhinorrhea; no carotid bruits; moist mucous membranes; pharynx without lesions noted NECK: Supple without meningismus; non-tender; right anterior mobile cervical like lymphnode with no fluctuance, bruit, or tenderness noted on palpation CARD: Regular rate and rhythm; no murmurs, no clicks, no rubs, no gallops; symmetric distal pulses RESP: Normal chest excursion without splinting or tachypnea; breath sounds clear and equal bilaterally ABD/GI: Normal bowel sounds; non-distended; soft, non-tender,; no palpable organomegaly or masses BACK: The back appears normal and is non-tender to palpation EXT: No edema SKIN: No acute lesions noted NEURO: NIH score of 33 with 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 EKG shows a heart rate of 66, atrial fibrillation, normal axis, no obvious ST elevation or depression. 08/30/17 18:20 Given the patient's complicated history, with frequent multiple nosebleeds including a posterior nosebleed requiring surgery, with an NIH score of 33 as calculated, I have consulted neurology at [facility] and have ordered a CTA of the head and neck. Creatinine is unremarkable. I have discussed with both Tho and yury the patient's 2 children the seriousness of the patient's condition. 08/30/17 18:29 I have called and spoken directly to Dr. Miguel, on-call for neurology at [facility]. I have explained the full history and physical examination, including the NIH score of 33, the patient's recent multiple nosebleeds and no surgery with recently been taken off Eliquis 6 days ago. He still believe that the patient should receive TPA. I have gone over the TPA exclusion list with the son and it does appear that the patient is a candidate. I performed a rectal examination I do not detect any gross blood. I have explained to the patient's son who is the power of business attorney, the risks and benefits of TPA including a 6% chance of a serious intracranial bleed that could cause disability and . He states that he understands these risks and would like to follow the neurologist's recommendation. Patient will most likely be flown from here to [facility] for further evaluation and possibly extraction. We have ordered a CTA of the head and CTA of the neck. 08/30/17 18:[address] Lal, the neuro interventionalist. We then had a three-way call with Dr. muir the radiologist. He sees a proximal MCA occlusion. Patient will be transferred in flight. - Vital Signs Vital signs: Temp Pulse Resp BP Pulse Ox 19 130/67 H 100 08/30/17 18:32 08/30/17 18:32 08/30/17 18:32 - Laboratory Result Diagrams: 08/30/17 17:16 08/30/17 17:16 Laboratory results interpreted by me: 08/30/17 08/30/17 17:16 17:16 RBC 3.18 L Hgb 8.9 L Hct 26.7 L RDW 15.4 H Est GFR ( Amer) 55 L Est GFR (Non-Af Amer) 45 L Glucose 141 H Creatine Kinase < 20 L Albumin 3.3 L Critical Care Note - Critical Care Note Total time excluding time spent on procedures (mins): 100 Discharge - Discharge Clinical Impression: Stroke Qualifiers: CVA mechanism: unspecified Qualified Code(s): I63.9 - Cerebral infarction, unspecified Condition: Critical Disposition: [facility] Unit Admitted: ICU Referrals: DEBBIE PICKARD MD [Primary Care Provider] - Follow up as needed
[2017-08-30 17:50] LABS: ABSOLUTE BASOPHILS # (AUTO) 0.1 10^3/uL (0.0-0.2); ABSOLUTE EOSINOPHILS # (AUTO) 0.4 10^3/uL (0.0-0.6); ABSOLUTE LYMPHOCYTES (AUTO) 1.5 10^3/uL (0.5-4.7); ABSOLUTE MONOCYTES (AUTO) 0.6 10^3/uL (0.1-1.4); ABSOLUTE NEUT (AUTO) 5.6 10^3/uL (1.7-8.2); BASOPHILS % (AUTO) 1.3 % (0-2); EOSINOPHILS % (AUTO) 4.4 % (0-6); HEMATOCRIT 26.7 % (36.0-47.0); HEMOGLOBIN 8.9 g/dL (12.0-15.5); LYMPHOCYTES % (AUTO) 18.4 % (13-45); MEAN CORPUSCULAR HEMOGLOBIN 28.1 pg (27.0-33.4); MEAN CORPUSCULAR HGB CONC 33.5 g/dL (32.0-36.0); MEAN CORPUSCULAR VOLUME 84 fl (80-97); MONOCYTES % (AUTO) 7.7 % (3-13); PLATELET COUNT 273 10^3/uL (150-450); RED BLOOD COUNT 3.18 10^6/uL (3.72-5.28); RED CELL DISTRIBUTION WIDTH 15.4 % (11.5-14.0); SEGMENTED NEUTROPHILS % (AUTO) 68.2 % (42-78); TOTAL CELLS COUNTED % (AUTO) 100 %; WHITE BLOOD COUNT 8.2 10^3/uL (4.0-10.5)
[2017-08-30 17:51] LABS: INTERNATIONAL RATION (INR) 1.08; PARTIAL THROMBOPLASTIN TIME 32.9 SEC (23.5-35.8); PROTHROMBIN TIME 14.6 SEC (11.4-15.4)
--- NOTE | 2017-08-30 17:58 | RADIOLOGY REPORT (SQ) ---
EXAM DESCRIPTION: CT HEAD WITHOUT COMPLETED DATE/TIME: 08/30/2017 5:46 pm REASON FOR STUDY: bed 12 stroke alert COMPARISON: September 2015 TECHNIQUE: Axial images acquired through the brain without intravenous contrast. Images reviewed wi th bone, brain and subdural windows. Additional sagittal and coronal reconstructions were generated. Images stored on PACS. All CT scanners at this facility use dose modulation, iterative reconstruction, and/or weight based d osing when appropriate to reduce radiation dose to as low as reasonably achievable (ALARA). [facility]: Dose Right [facility]: CareDose [facility]: Dose Right [facility]: Teradose 4D [facility]: LiveAction RADIATION DOSE: mGy. LIMITATIONS: Motion artifact is seen on a couple of the more inferior images. FINDINGS: VENTRICLES: Prominent. The previously described slight dilatation of the 3rd ventricle ap pears unchanged CEREBRUM: No masses. No hemorrhage. No midline shift. Areas of low density in the white matter mos t likely due to chronic micro-vascular ischemic change. No evidence for acute infarction. CEREBELLUM: No masses. No hemorrhage. No alteration of density. No evidence for acute infarction. EXTRAAXIAL SPACES: Age-related involutional change. No fluid collections. No masses. ORBITS AND GLOBE: No intra- or extraconal masses. Normal contour of globe without masses. CALVARIUM: No fracture. PARANASAL SINUSES: Mucosal thickening is identified in both maxillary antra in there is a prominent a ir-fluid level in the right maxillary antra. A smaller air-fluid level is identified in the left max illary antra SOFT TISSUES: No mass or hematoma. OTHER: No other significant finding. IMPRESSION: CHRONIC CHANGES OF ATROPHY AND MICROVASCULAR ISCHEMIA. NO ACUTE intracranial PROCESS. Sinus disease as noted above. EVIDENCE OF ACUTE STROKE: NO. COMMENT: Pertinent positive or negative findings of the imaging study reported as a CRITICAL EXAM raciel MOSCOSO MD at17:51 on 08/30/2017. Category of Critical Exam: Stroke alert TECHNICAL DOCUMENTATION: JOB ID: [id number] Quality ID # [id number]: Final reports with documentation of one or more dose reduction techniques (e.g., Au tomated exposure control, adjustment of the mA and/or kV according to patient size, use of iterative reconstruction technique) 2010 [employer]- All Rights Reserved Reading location - IP/workstation name: [email or web address]
--- NOTE | 2017-08-30 17:58 | RADIOLOGY REPORT (SQ) ---
EXAM DESCRIPTION: CHEST SINGLE VIEW COMPLETED DATE/TIME: 08/30/2017 5:46 pm REASON FOR STUDY: bed 12 stroke alert COMPARISON: 12/22/2015 EXAM PARAMETERS: NUMBER OF VIEWS: One view. TECHNIQUE: Single frontal radiographic view of the chest acquired. RADIATION DOSE: NA LIMITATIONS: None. FINDINGS: LUNGS AND PLEURA: No acute opacities, masses or pneumothorax. Similar left basilar scarri ng. No pleural effusion. MEDIASTINUM AND HILAR STRUCTURES: Stable. HEART AND VASCULAR STRUCTURES: Stable. BONES: No acute findings. HARDWARE: None in the chest. OTHER: No other significant finding. IMPRESSION: NO ACUTE RADIOGRAPHIC FINDING IN THE CHEST. TECHNICAL DOCUMENTATION: JOB ID: [id number] [place]-72 2010 [employer]- All Rights Reserved Reading location - IP/workstation name: [email or web address]
[2017-08-30 18:14] LABS: ALANINE AMINOTRANSFERASE 13 U/L (9-52); ALBUMIN 3.3 g/dL (3.5-5.0); ALKALINE PHOSPHATASE 113 U/L (38-126); ANION GAP 14 (5-19); ASPARTATE AMINO TRANSFERASE 24 U/L (14-36); BILIRUBIN,DIRECT 0.2 mg/dL (0.0-0.4); BILIRUBIN,TOTAL 0.9 mg/dL (0.2-1.3); BLOOD UREA NITROGEN 12 mg/dL (7-20); CALCIUM 9.3 mg/dL (8.4-10.2); CARBON DIOXIDE 22 mmol/L (22-30); CHLORIDE 103 mmol/L (98-107); GLUCOSE 141 mg/dL (75-110); POTASSIUM 4.4 mmol/L (3.6-5.0); SODIUM 138.8 mmol/L (137-145); TOTAL PROTEIN 6.3 g/dL (6.3-8.2)
[2017-08-30 18:15] LABS: CREATINE KINASE < 20 U/L (30-135)
[2017-08-30 18:28] LABS: CREATINE KINASE MB 0.38 ng/mL (<4.55); TROPONIN I 0.016 ng/mL
[2017-08-30] MEDS ORDERED: ALTEPLASE INJ 100 MG VIAL IV ONE (18:38)
[2017-08-30] MEDS ORDERED: ALTEPLASE INJ 100 MG VIAL ONE (18:40)
--- NOTE | 2017-08-30 18:57 | RADIOLOGY REPORT (SQ) ---
EXAM DESCRIPTION: CTA HEAD COMPLETED DATE/TIME: 08/30/2017 6:32 pm REASON FOR STUDY: 12; stroke protocol COMPARISON: None. TECHNIQUE: Post IV contrast scanning, thin section axial imaging through the brain to evaluate the a rterial structures. Source and MIP images are saved and reviewed on PACS. Advanced 3D imaging as volume-rendering, MIPs, SSD performed? yes All CT scanners at this facility use dose modulation, iterative reconstruction, and/or weight based d osing when appropriate to reduce radiation dose to as low as reasonably achievable (ALARA). [facility]: Dose Right [facility]: CareDose [facility]: Dose Right [facility]: Teradose 4D [facility]: [employer]uretis CONTRAST TYPE AND DOSE: contrast/concentration: Isovue 370.00 mg/ml; Total Contrast Delivered: 70.0 ml; Total Saline Delivered: 47.0 ml 70 mL Visipaque 320- low osmolar. RENAL FUNCTION: Creatinine 1.19 LIMITATIONS: None. FINDINGS: [place] OF [place]: There is non visualization of the left middle cerebral artery consistent with an occlusion. There is opacification of distal branches of the left MCA presumably via collate ral circulation. No obvious occlusions or significant stenoses are identified involving the remainin g cervical of [place]. POSTERIOR CIRCULATION: The distal vertebral arteries are patent as is the basilar artery. No aneurysm . BRAIN: No gross enhancing lesions as visualized. The superior cerebral hemispheres are not included in the field of view. BONES: Intact as visualized. SINUSES: Prominent air-fluid levels are identified in the maxillary antra right greater than left. OTHER: No other significant finding. 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 Ther e is opacification of distal branches of the left MCA presumably via collateral circulation. No sign ificant occlusions or stenoses are identifiable involving the remainder of the [place] of [place]. TECHNICAL DOCUMENTATION: JOB ID: [id number] Quality ID # [id number]: Final reports with documentation of one or more dose reduction techniques (e.g., Au tomated exposure control, adjustment of the mA and/or kV according to patient size, use of iterative reconstruction technique) 2010 [employer]- All Rights Reserved Reading location - IP/workstation name: [email or web address]
--- NOTE | 2017-08-30 19:06 | RADIOLOGY REPORT (SQ) ---
EXAM DESCRIPTION: CTA NECK COMPLETED DATE/TIME: 08/30/2017 6:32 pm REASON FOR STUDY: 12, Stroke protocol COMPARISON: None. TECHNIQUE: Axial dynamic scanning technique with dynamic contrast enhancement through the extra-line assembler aircraft nial carotid and vertebral arteries. Multiplanar reconstruction. 3-D MIPS and Volume-rendered imag es acquired at the workstation and saved to PACS. Images are reviewed in soft tissue, bone, lung w indows. All CT scanners at this facility use dose modulation, iterative reconstruction, and/or weight based d osing when appropriate to reduce radiation dose to as low as reasonably achievable (ALARA). [facility]: Dose Right [facility]: CareDose [facility]: Dose Right [facility]: Teradose 4D [facility]: [employer] CONTRAST TYPE AND DOSE: 70 mL Isovue 370 RENAL FUNCTION: Creatinine 1.19 LIMITATIONS: None. FINDINGS: AORTIC ARCH: There is a common origin of the common carotid arterirs with an a Lobo rig ht subclavian artery being identified. RIGHT CAROTIDS: Patent common, internal and external carotid arteries. Calcific atherosclerotic plaq uing is identified at the level of the carotid bifurcation. No significant stenosis is identified. . RIGHT VERTEBRAL: Patent. No dissection. LEFT CAROTIDS: Patent common, internal and external carotid arteries. Calcific atherosclerotic plaqu ing is identified at the level the carotid bifurcation. There appears to be some narrowing of the pr oximal left internal carotid artery. LEFT VERTEBRAL: Patent. No dissection. OTHER: Heterogeneous calcified left thyroid mass is identified. Thyroid ultrasound is recommended fo r further evaluation OTHER: 3-D reconstructions confirm findings. IMPRESSION: Patency of both carotid artery's as noted above. Calcific atherosclerotic plaquing is i dentified at the level of the carotid bifurcations bilaterally. There appears be some narrowing of t he proximal left internal carotid artery. Other findings as noted above COMMENT: Quality ID #[id number]: Measurements of distal internal carotid diameter were used as the denomina tor for stenosis measurement. TECHNICAL DOCUMENTATION: JOB ID: [id number] Quality ID # [id number]: Final reports with documentation of one or more dose reduction techniques (e.g., Au tomated exposure control, adjustment of the mA and/or kV according to patient size, use of iterative reconstruction technique) 2010 [employer]- All Rights Reserved Reading location - IP/workstation name: [email or web address]
[2017-08-30 19:32] VITALS: BP 133/66
--- NOTE | 2017-08-31 00:20 | EKG REPORT ---
SEVERITY:- ABNORMAL ECG - ATRIAL FIBRILLATION : Confirmed by: Sarah Alexander MD 31-Aug-2017 00:20:00
== END 2017-08-30 19:30 | disposition short-term general hospital (02) ==
LOC: ER 17:35
DX: I63.9 Cerebral infarction, unspecified (principal); R53.1 Weakness; R41.82 Altered mental status, unspecified; I48.91 Unspecified atrial fibrillation; I50.9 Heart failure, unspecified; I11.0 Hypertensive heart disease with heart failure; Z88.2 Allergy status to sulfonamides; Z88.6 Allergy status to analgesic agent; Z90.49 Acquired absence of other specified parts of digestive tract; Z90.710 Acquired absence of both cervix and uterus
CPT/HCPCS: 93005; 99291; 99292; 96365; 36415; 82553; 82962; 82550; 85025; 85610; 85730; 80053; 84484; 71045; 70450; 70496; 70498; 93010; J2997

== ENCOUNTER 2017-09-14 15:09 | Inpatient (IN) | payer MEDICARE, OTHER ==
[2017-09-14] MEDS ORDERED: NORMAL SALINE 1000 ML 1,000 ML IV ONE (15:41)
[2017-09-14] MEDS ORDERED: NORMAL SALINE 500 ML IV ONE (15:41)
[2017-09-14 15:44] LABS: ABSOLUTE BASOPHILS # (AUTO) 0.1 10^3/uL (0.0-0.2); ABSOLUTE EOSINOPHILS # (AUTO) 0.3 10^3/uL (0.0-0.6); ABSOLUTE MONOCYTES (AUTO) 0.9 10^3/uL (0.1-1.4); ABSOLUTE NEUT (AUTO) 15.5 10^3/uL (1.7-8.2); BASOPHILS % (AUTO) 0.3 % (0-2); EOSINOPHILS % (AUTO) 1.9 % (0-6); HEMATOCRIT 29.5 % (36.0-47.0); HEMOGLOBIN 9.3 g/dL (12.0-15.5); LYMPHOCYTES % (AUTO) 5.6 % (13-45); MEAN CORPUSCULAR HEMOGLOBIN 25.6 pg (27.0-33.4); MEAN CORPUSCULAR HGB CONC 31.7 g/dL (32.0-36.0); MEAN CORPUSCULAR VOLUME 81 fl (80-97); MONOCYTES % (AUTO) 4.9 % (3-13); PLATELET COUNT 270 10^3/uL (150-450); RED BLOOD COUNT 3.64 10^6/uL (3.72-5.28); RED CELL DISTRIBUTION WIDTH 17.2 % (11.5-14.0); SEGMENTED NEUTROPHILS % (AUTO) 87.3 % (42-78); TOTAL CELLS COUNTED % (AUTO) 100 %; VENOUS BLOOD BASE EXCESS -1.6 mmol/L; VENOUS BLOOD HCO3 23.8 mmol/L (20-32); VENOUS BLOOD PCO2 42.6 mmHg (35-63); VENOUS BLOOD PH 7.37 (7.30-7.42); WHITE BLOOD COUNT 17.7 10^3/uL (4.0-10.5)
[2017-09-14 15:51] LABS: INTERNATIONAL RATION (INR) 1.16; PROTHROMBIN TIME 15.4 SEC (11.4-15.4)
[2017-09-14 16:00] LABS: ALANINE AMINOTRANSFERASE 24 U/L (9-52); ALKALINE PHOSPHATASE 125 U/L (38-126); ANION GAP 11 (5-19); ASPARTATE AMINO TRANSFERASE 44 U/L (14-36); BILIRUBIN,DIRECT 0.3 mg/dL (0.0-0.4); BILIRUBIN,TOTAL 0.5 mg/dL (0.2-1.3); BLOOD UREA NITROGEN 48 mg/dL (7-20); CALCIUM 9.7 mg/dL (8.4-10.2); CARBON DIOXIDE 25 mmol/L (22-30); CHLORIDE 107 mmol/L (98-107); GLUCOSE 154 mg/dL (75-110); POTASSIUM 4.9 mmol/L (3.6-5.0); SODIUM 143.2 mmol/L (137-145); TOTAL PROTEIN 6.6 g/dL (6.3-8.2)
--- NOTE | 2017-09-14 16:18 | RADIOLOGY REPORT (SQ) ---
EXAM DESCRIPTION: CHEST SINGLE VIEW COMPLETED DATE/TIME: 09/14/2017 4:02 pm REASON FOR STUDY: bed 19 sepsis protocol COMPARISON: 08/30/2017. EXAM PARAMETERS: NUMBER OF VIEWS: One view. TECHNIQUE: Single frontal radiographic view of the chest acquired. RADIATION DOSE: NA LIMITATIONS: None. FINDINGS: LUNGS AND PLEURA: No opacities, masses or pneumothorax. No pleural effusion. MEDIASTINUM AND HILAR STRUCTURES: No masses. Contour normal. HEART AND VASCULAR STRUCTURES: Heart normal in size. Normal vasculature. BONES: No acute findings. HARDWARE: None in the chest. OTHER: No other significant finding. IMPRESSION: NO ACUTE RADIOGRAPHIC FINDING IN THE CHEST. TECHNICAL DOCUMENTATION: JOB ID: [id number] [employer]- All Rights Reserved Reading location - IP/workstation name: [email or web address]
[2017-09-14 16:19] LABS: TROPONIN I 0.055 ng/mL
--- NOTE | 2017-09-14 17:14 | RADIOLOGY REPORT (SQ) ---
EXAM DESCRIPTION: CT HEAD WITHOUT COMPLETED DATE/TIME: 09/14/2017 4:57 pm REASON FOR STUDY: ams COMPARISON: 08/30/2017 TECHNIQUE: Axial images acquired through the brain without intravenous contrast. Images reviewed wi th bone, brain and subdural windows. Additional sagittal and coronal reconstructions were generated. Images stored on PACS. All CT scanners at this facility use dose modulation, iterative reconstruction, and/or weight based d osing when appropriate to reduce radiation dose to as low as reasonably achievable (ALARA). [facility]: Dose Right [facility]: CareDose [facility]: Dose Right [facility]: Teradose 4D [facility]: [employer] RADIATION DOSE: CT Rad equipment meets quality standard of care and radiation dose reduction techniq ues were employed. CTDIvol: 55.2 mGy. DLP: 1029 mGy-cm. mGy. LIMITATIONS: None. FINDINGS: VENTRICLES: Prominent. 3rd ventricle is mildly dilated. This is unchanged. CEREBRUM: Mild cortical atrophy. No masses. No hemorrhage. No midline shift. No evidence for acut e infarction. Areas of low density in the white matter most likely chronic small vessel ischemic murphy ges. CEREBELLUM: No masses. No hemorrhage. No alteration of density. No evidence for acute infarction. EXTRAAXIAL SPACES: No fluid collections. No masses. ORBITS AND GLOBE: No intra- or extraconal masses. Normal contour of globe without masses. CALVARIUM: No fracture. PARANASAL SINUSES: No fluid or mucosal thickening. SOFT TISSUES: No mass or hematoma. OTHER: No other significant finding. IMPRESSION: CHRONIC MICROVASCULAR ISCHEMIA. NO ACUTE IMAGING FINDINGS IN THE BRAIN. EVIDENCE OF ACUTE STROKE: NO. COMMENT: Quality ID # 436: Final reports with documentation of one or more dose reduction techniques (e.g., Automated exposure control, adjustment of the mA and/or kV according to patient size, use of iterative reconstruction technique) TECHNICAL DOCUMENTATION: JOB ID: [id number] [employer]- All Rights Reserved Reading location - IP/workstation name: [email or web address]
[2017-09-14 17:48] LABS: APPEARANCE,URINE CLEAR; BILIRUBIN,URINE NEGATIVE (NEGATIVE); COLOR,URINE YELLOW; GLUCOSE, URINE NEGATIVE (NEGATIVE); KETONES,URINE NEGATIVE (NEGATIVE); LEUKOCYTE ESTERASE,URINE NEGATIVE (NEGATIVE); NITRITE,URINE NEGATIVE (NEGATIVE); PROTEIN,URINE NEGATIVE (NEGATIVE); URINE SPECIFIC GRAVITY 1.013; UROBILINOGEN,URINE NEGATIVE mg/dL (<2.0)
[2017-09-14] MEDS ORDERED: PIPERACILLIN/TAZOBACTAM 3.375 GM VIAL IV ONE (17:55)
--- NOTE | 2017-09-14 18:10 | ER Document Report ---
ED General - General Chief Complaint: Altered Mental Status Stated Complaint: ALTERED MENTAL STATUS Time Seen by Provider: 09/14/17 15:27 TRAVEL OUTSIDE OF THE [place] IN LAST 30 DAYS: No - HPI Patient complains to provider of: Altered mental state Notes: Patient is coming in [facility] from [facility] for altered mental status. Patient also is having apparently some difficulty in breathing now requiring oxygen. Patient is nonverbal and the family is at bedside upon her arrival. Most of the information obtained is from previous visits. Patient has history of atrial fibrillation was on Eliquis multiple nasal bleeds was taken off her Eliquis because of these nasal bleeds and ended up having a large stroke and was sent to [facility]. Patient has right-sided hemiparesis now and is nonverbal. Upon evaluation patient with a nasal cannula she is arousable to voice will move the left upper and left lower extremities and follow commands. - Related Data Allergies/Adverse Reactions: aspirin [Aspirin] Allergy (Intermediate, Verified 09/14/17 20:35) GI BLEED Sulfa (Sulfonamide Antibiotics) Allergy (Verified 09/14/17 20:35) Past Medical History - Social History Smoking Status: Unknown if Ever Smoked Chew tobacco use (# tins/day): No Frequency of alcohol use: None Drug Abuse: None Family History: Reviewed & Not Pertinent, Hypertension Patient has suicidal ideation: No Patient has homicidal ideation: No - Past Medical History Cardiac Medical History: Reports: Hx Atrial Fibrillation, Hx Congestive Heart Failure, Hx Hypertension Renal/ Medical History: Denies: Hx Peritoneal Dialysis GI Medical History: Reports: Hx Hiatal Hernia Past Surgical History: Reports: Hx Cholecystectomy, Hx Hysterectomy Review of Systems - Review of Systems -: Yes ROS unobtainable due to patient's medical condition - Nonverbal Physical Exam - Vital signs Vitals: Resp Pulse Ox 31 H 99 09/14/17 15:50 09/14/17 15:50 Interpretation: Tachypneic - General General appearance: Lethargic In distress: Mild - HEENT Head: Normocephalic, Atraumatic Eyes: Normal Pupils: PERRL - Respiratory Respiratory status: Tachypnea Chest status: Nontender Breath sounds: Normal Chest palpation: Normal - Cardiovascular Rhythm: Irregularly irregular Heart sounds: Normal auscultation Murmur: No - Abdominal Inspection: Normal Distension: No distension Bowel sounds: Normal Tenderness: Nontender Organomegaly: No organomegaly - Back Back: Normal, Nontender - Extremities General upper extremity: Normal inspection, Nontender, Normal color General lower extremity: Normal inspection, Nontender, Normal color - Neurological Jose Coma Scale Eye Opening: Spontaneous Jose Coma Scale Verbal: Incomprehensible Jose Coma Scale Motor: Obeys Commands [place] Coma Scale Total: 12 Speech: Dysarthria Notes: Hemiparesis from previous stroke on the right side - Skin Skin Temperature: Warm Skin Moisture: Dry Skin Color: Normal Course - Re-evaluation Re-evalutation: 09/14/17 23:15 Family did eventually arrive at bedside states that patient at the [facility] was supposed to be on a new machine, CPAP patient also has been n.p.o. has a feeding tube and was noted to be given anything by mouth however yesterday states that nursing staff at the [facility] try to administer pills to the patient. Concern for possible underlying aspiration as patient is requiring oxygen at this time will likely patient does have sleep apnea to as well. Discussed with the hospitalist service. Will admit the patient for further evaluation. - Vital Signs Vital signs: Temp Pulse Resp BP Pulse Ox 99.5 F 95 26 H 129/54 H 96 09/14/17 22:01 09/14/17 21:00 09/14/17 22:01 09/14/17 22:01 09/14/17 22:01 - Laboratory Result Diagrams: 09/14/17 21:21 09/14/17 21:21 Laboratory results interpreted by me: 09/14/17 09/14/17 09/14/17 15:21 15:21 15:21 WBC 17.7 H RBC 3.64 L Hgb 9.3 L Hct 29.5 L MCH 25.6 L MCHC 31.7 L RDW 17.2 H Seg Neutrophils % 87.3 H Lymphocytes % 5.6 L Absolute Neutrophils 15.5 H BUN 48 H Est GFR (Non-Af Amer) 53 L Glucose 154 H Magnesium AST 44 H NT-Pro-B Natriuret Pep 5500 H Albumin 3.0 L Urine Ascorbic Acid 09/14/17 09/14/17 15:21 17:24 WBC RBC Hgb Hct MCH MCHC RDW Seg Neutrophils % Lymphocytes % Absolute Neutrophils BUN Est GFR (Non-Af Amer) Glucose Magnesium 2.4 H AST NT-Pro-B Natriuret Pep Albumin Urine Ascorbic Acid 40 H Discharge - Discharge Clinical Impression: Atrial fibrillation Qualifiers: Atrial fibrillation type: chronic Qualified Code(s): I48.2 - Chronic atrial fibrillation Aspiration pneumonia Qualifiers: Aspiration pneumonia type: due to regurgitated food Laterality: unspecified laterality Lung location: unspecified part of lung Qualified Code(s): J69.0 - Pneumonitis due to inhalation of food and vomit
[2017-09-14] MEDS ORDERED: AMPICILLIN SOD/SULBACTAM 3 GM VIAL IV ONE (19:03)
[2017-09-14] MEDS ORDERED: ALBUTEROL SULFATE HFA (90 MCG/PUFF) 200 PUFF/8.5 GM MDI IH PRN (19:28)
--- NOTE | 2017-09-14 21:32 | EKG REPORT ---
SEVERITY:- ABNORMAL ECG - ATRIAL FIBRILLATION, V-RATE 75-152 : Confirmed by: Sarah Alexander MD 14-Sep-2017 21:32:08
[2017-09-14 21:38] LABS: ABSOLUTE BASOPHILS # (AUTO) 0.1 10^3/uL (0.0-0.2); ABSOLUTE EOSINOPHILS # (AUTO) 0.4 10^3/uL (0.0-0.6); ABSOLUTE LYMPHOCYTES (AUTO) 1.2 10^3/uL (0.5-4.7); ABSOLUTE MONOCYTES (AUTO) 0.7 10^3/uL (0.1-1.4); ABSOLUTE NEUT (AUTO) 12.4 10^3/uL (1.7-8.2); BASOPHILS % (AUTO) 0.4 % (0-2); EOSINOPHILS % (AUTO) 2.7 % (0-6); HEMATOCRIT 30.8 % (36.0-47.0); HEMOGLOBIN 9.9 g/dL (12.0-15.5); LYMPHOCYTES % (AUTO) 7.8 % (13-45); MEAN CORPUSCULAR HEMOGLOBIN 26.5 pg (27.0-33.4); MEAN CORPUSCULAR HGB CONC 32.2 g/dL (32.0-36.0); MEAN CORPUSCULAR VOLUME 82 fl (80-97); MONOCYTES % (AUTO) 4.7 % (3-13); PLATELET COUNT 274 10^3/uL (150-450); RED BLOOD COUNT 3.74 10^6/uL (3.72-5.28); RED CELL DISTRIBUTION WIDTH 17.3 % (11.5-14.0); SEGMENTED NEUTROPHILS % (AUTO) 84.4 % (42-78); TOTAL CELLS COUNTED % (AUTO) 100 %; WHITE BLOOD COUNT 14.7 10^3/uL (4.0-10.5)
[2017-09-14 22:05] LABS: ALANINE AMINOTRANSFERASE 27 U/L (9-52); ALBUMIN 3.1 g/dL (3.5-5.0); ALKALINE PHOSPHATASE 131 U/L (38-126); ANION GAP 12 (5-19); ASPARTATE AMINO TRANSFERASE 48 U/L (14-36); BILIRUBIN,DIRECT 0.3 mg/dL (0.0-0.4); BILIRUBIN,TOTAL 0.8 mg/dL (0.2-1.3); BLOOD UREA NITROGEN 43 mg/dL (7-20); CALCIUM 9.4 mg/dL (8.4-10.2); CARBON DIOXIDE 25 mmol/L (22-30); CHLORIDE 110 mmol/L (98-107); GLUCOSE 103 mg/dL (75-110); POTASSIUM 4.4 mmol/L (3.6-5.0); SODIUM 146.7 mmol/L (137-145); TOTAL PROTEIN 6.9 g/dL (6.3-8.2)
[2017-09-14 22:19] LABS: FREE T4 (FREE THYROXINE) 1.29 ng/dL (0.78-2.19)
[2017-09-14 22:33] LABS: THYROID STIMULATING HORMONE 3.04 uIU/mL (0.47-4.68)
[2017-09-15 06:08] LABS: MEAN CORPUSCULAR HEMOGLOBIN 26.6 pg (27.0-33.4); MEAN CORPUSCULAR HGB CONC 32.1 g/dL (32.0-36.0); MEAN CORPUSCULAR VOLUME 83 fl (80-97); PLATELET COUNT 230 10^3/uL (150-450); RED BLOOD COUNT 3.38 10^6/uL (3.72-5.28); RED CELL DISTRIBUTION WIDTH 17.5 % (11.5-14.0); WHITE BLOOD COUNT 15.5 10^3/uL (4.0-10.5)
[2017-09-15] MEDS ORDERED: METOPROLOL TARTRATE PF/INJ 5 MG/5 ML SDV IV ONE (06:15)
[2017-09-15] MEDS: LANSOPRAZOLE 30 MG TAB.RAP.DR PO SCH ×2 (06:28→19:33)
[2017-09-15 06:40] LABS: ANION GAP 11 (5-19); BLOOD UREA NITROGEN 38 mg/dL (7-20); CALCIUM 9.7 mg/dL (8.4-10.2); CARBON DIOXIDE 24 mmol/L (22-30); CHLORIDE 112 mmol/L (98-107); GLUCOSE 101 mg/dL (75-110); POTASSIUM 4.4 mmol/L (3.6-5.0); SODIUM 147.2 mmol/L (137-145)
[2017-09-15] MEDS ORDERED: METOPROLOL TARTRATE 50 MG TABLET PEG ONE (18:15)
--- NOTE | 2017-09-15 23:50 | PDOC H&P ---
History of Present Illness Admission Date/PCP: SHANA/ ALEJANDRO MARCUM AT [facility]. Patient complains of: pt is an 87 y/o elderly female presented to er from [facility] via EMS for increased respiratory rate. pt noted to be tachypneic and more somnolent upon arrival. pt had her eliquis restarted which is probably why pt has some bruising on her forearm and foot. pt is alone no family at bedside. pt was recently discharged to [facility] for rehab from her recent [facility] in august 2017. today pt is awake and alert and answers questions . And also follows commands. she is hard of hearing. pt is really dry and also noted to have snoring and periods of apnea and falls asleep and snores frequently. Per family report pt has had diarrhea . History of Present Illness: MOHAN ALVARENGA is a 87 year old female Past Medical History Cardiac Medical History: Reports: Atrial Fibrillation, Congestive Heart Failure , Hypertension, Other - CVA EENT Medical History: Reports: None, Other - PT HAS A SOFT 4 CM RIGHT NECK MASS . PER REPORT PER FAMILY - UNDER EVAL. Neurological Medical History: Reports: Ischemic CVA Endocrine Medical History: Reports: None GI Medical History: Reports: Hiatal Hernia Skin Medical History: Reports: Other - STAGE 1 SACRAL BEDSORE AND RIHT LABIA SKIN BREAKDOWN . Psychiatric Medical History: Reports: None Hematology: Reports: Anemia Denies: Sickle Cell Disease Infectious Medical History: Reports: None Past Surgical History Past Surgical History: Reports: Cholecystectomy, Hysterectomy Denies: Amputation Social History Smoking Status: Unknown if Ever Smoked Frequency of Alcohol Use: None Hx Recreational Drug Use: No Drugs: None Hx Prescription Drug Abuse: No Family History Family History: Reviewed & Not Pertinent, Hypertension Parental Family History Reviewed: Yes Children Family History Reviewed: NA Sibling(s) Family History Reviewed.: NA Medication/Allergy Home Medications: Apixaban [Eliquis 2.5 mg Tablet] 2.5 mg GT Q12 09/14/17 Atorvastatin Calcium [Lipitor 40 mg Tablet] 40 mg GT QHS 09/14/17 Furosemide [Lasix 20 mg Tablet] 20 mg GT DAILY 09/14/17 Metoprolol Tartrate [Lopressor 100 mg Tablet] 100 mg GT Q12 09/14/17 Allergies/Adverse Reactions: aspirin [Aspirin] Allergy (Intermediate, Verified 09/14/17 20:35) GI BLEED Sulfa (Sulfonamide Antibiotics) Allergy (Verified 09/14/17 20:35) Review of Systems ROS unobtainable: Due to mental status Physical Exam Vital Signs: Temp Pulse Resp BP Pulse Ox 97.4 F 81 24 H 128/84 H 96 09/14/17 16:44 09/14/17 18:00 09/14/17 18:39 09/14/17 18:39 09/14/17 18:39 Intake & Output 09/13/17 09/14/17 09/15/17 06:59 06:59 06:59 Intake Total 500 Balance 500 Weight 116 lb 13.52 oz General appearance: PRESENT: no acute distress, cooperative, obese Head exam: PRESENT: atraumatic, normocephalic Eye exam: PRESENT: EOMI, PERRLA Ear exam: PRESENT: normal external ear exam Mouth exam: PRESENT: dry mucosa Neck exam: PRESENT: lymphadenopathy Respiratory exam: PRESENT: rales, rhonchi, wheezes. ABSENT: accessory muscle use, clear to auscultation [place], tachypnea, unlabored Cardiovascular exam: PRESENT: RRR Pulses: PRESENT: normal radial pulses, normal dorsalis pedis pul GI/Abdominal exam: PRESENT: soft. ABSENT: distended, tenderness Rectal exam: PRESENT: deferred Extremities exam: ABSENT: joint swelling, pedal edema Neurological exam: PRESENT: alert, awake, oriented to person, oriented to place , CN II-XII grossly intact. ABSENT: aphasic Results Laboratory Results: 09/14/17 15:21 09/14/17 15:21 09/14/17 09/14/17 09/14/17 15:21 15:21 15:21 WBC 17.7 H RBC 3.64 L Hgb 9.3 L Hct 29.5 L MCV 81 MCH 25.6 L MCHC 31.7 L RDW 17.2 H Plt Count 270 Seg Neutrophils % 87.3 H Lymphocytes % 5.6 L Monocytes % 4.9 Eosinophils % 1.9 Basophils % 0.3 Absolute Neutrophils 15.5 H Absolute Lymphocytes 1.0 Absolute Monocytes 0.9 Absolute Eosinophils 0.3 Absolute Basophils 0.1 VBG pH VBG pCO2 VBG HCO3 VBG Base Excess Sodium 143.2 Potassium 4.9 Chloride 107 Carbon Dioxide 25 Anion Gap 11 BUN 48 H Creatinine 1.00 Est GFR ( Amer) > 60 Est GFR (Non-Af Amer) 53 L Glucose 154 H Lactic Acid 1.3 Calcium 9.7 Magnesium Total Bilirubin 0.5 AST 44 H ALT 24 Alkaline Phosphatase 125 Total Protein 6.6 Albumin 3.0 L Lipase Urine Color Urine Appearance Urine pH Ur Specific [place] Urine Protein Urine Glucose (UA) Urine Ketones Urine Blood Urine Nitrite Ur Leukocyte Esterase Urine WBC (Auto) Urine RBC (Auto) Blood Type Antibody Screen 09/14/17 09/14/17 09/14/17 15:21 15:21 15:21 WBC RBC Hgb Hct MCV MCH MCHC RDW Plt Count Seg Neutrophils % Lymphocytes % Monocytes % Eosinophils % Basophils % Absolute Neutrophils Absolute Lymphocytes Absolute Monocytes Absolute Eosinophils Absolute Basophils VBG pH 7.37 VBG pCO2 42.6 VBG HCO3 23.8 VBG Base Excess -1.6 Sodium Potassium Chloride Carbon Dioxide Anion Gap BUN Creatinine Est GFR ( Amer) Est GFR (Non-Af Amer) Glucose Lactic Acid Calcium Magnesium 2.4 H Total Bilirubin AST ALT Alkaline Phosphatase Total Protein Albumin Lipase 189.9 Urine Color Urine Appearance Urine pH Ur Specific [place] Urine Protein Urine Glucose (UA) Urine Ketones Urine Blood Urine Nitrite Ur Leukocyte Esterase Urine WBC (Auto) Urine RBC (Auto) Blood Type Antibody Screen 09/14/17 09/14/17 16:10 17:24 WBC RBC Hgb Hct MCV MCH MCHC RDW Plt Count Seg Neutrophils % Lymphocytes % Monocytes % Eosinophils % Basophils % Absolute Neutrophils Absolute Lymphocytes Absolute Monocytes Absolute Eosinophils Absolute Basophils VBG pH VBG pCO2 VBG HCO3 VBG Base Excess Sodium Potassium Chloride Carbon Dioxide Anion Gap BUN Creatinine Est GFR ( Amer) Est GFR (Non-Af Amer) Glucose Lactic Acid Calcium Magnesium Total Bilirubin AST ALT Alkaline Phosphatase Total Protein Albumin Lipase Urine Color YELLOW Urine Appearance CLEAR Urine pH 8.0 Ur Specific [place] 1.013 Urine Protein NEGATIVE Urine Glucose (UA) NEGATIVE Urine Ketones NEGATIVE Urine Blood NEGATIVE Urine Nitrite NEGATIVE Ur Leukocyte Esterase NEGATIVE Urine WBC (Auto) 3 Urine RBC (Auto) 0 Blood Type A POSITIVE Antibody Screen NEGATIVE 09/14/17 15:21 Troponin I 0.055 NT-Pro-B Natriuret Pep 5500 H Impressions: Head CT 09/14/17 00:00 IMPRESSION: CHRONIC MICROVASCULAR ISCHEMIA. NO ACUTE IMAGING FINDINGS IN THE BRAIN. EVIDENCE OF ACUTE STROKE: NO. Chest X-Ray 09/14/17 15:12 IMPRESSION: NO ACUTE RADIOGRAPHIC FINDING IN THE CHEST. Assessment & Plan - Diagnosis (1) Aspiration pneumonia Qualifiers: Aspiration pneumonia type: due to regurgitated food Laterality: unspecified laterality Lung location: unspecified part of lung Qualified Code(s): J69.0 - Pneumonitis due to inhalation of food and vomit Is this a current diagnosis for this admission?: Yes Plan: pt stated on iv unasyn for presumed aspiration pneumonitis. cxray negative. (2) Atrial fibrillation Qualifiers: Atrial fibrillation type: chronic Qualified Code(s): I48.2 - Chronic atrial fibrillation Is this a current diagnosis for this admission?: Yes Plan: rate controlled. continue eliquis. (3) Chronic kidney disease Qualifiers: Chronic kidney disease stage: stage 3 (moderate) Qualified Code(s): N18.3 - Chronic kidney disease, stage 3 (moderate) Is this a current diagnosis for this admission?: Yes Plan: Kidney function stable. Blood pressure control. (4) Hypertension Qualifiers: Hypertension type: essential hypertension Qualified Code(s): I10 - Essential (primary) hypertension Is this a current diagnosis for this admission?: Yes Plan: Patient to continue Lopressor . Of note, patient had echocardiogram done on 09/29/2015, which showed normal ventricular Wall thickness size with low normal systolic function. Left atrium is mildly dilated. Moderate pulmonary hypertension by echo. (5) Systolic dysfunction Is this a current diagnosis for this admission?: Yes Plan: Patient has an abnormal BNP with low normal systolic function noted on echocardiogram Done in 2016. We will repeat echocardiogram in a.m. We will start diuretic therapy necessary. - Time Time Spent: 30 to 50 Minutes Medications reviewed and adjusted accordingly: Yes Anticipated discharge: SNF - Inpatient Certification Based on my medical assessment, after consideration of the patient's comorbidities, presenting symptoms, or acuity I expect that the services needed warrant INPATIENT care.: Yes I certify that my determination is in accordance with my understanding of Medicare's requirements for reasonable and necessary INPATIENT services [42 CFR 412.3e].: Yes Medical Necessity: Need For Continuous Telemetry Monitoring
[2017-09-16] MEDS: LANSOPRAZOLE 30 MG TAB.RAP.DR PO SCH ×2 (05:52→18:16)
[2017-09-16] MEDS: METOPROLOL TARTRATE 50 MG TABLET PEG SCH ×2 (05:53→18:16)
[2017-09-16 06:26] LABS: ANION GAP 10 (5-19); BLOOD UREA NITROGEN 37 mg/dL (7-20); CALCIUM 9.8 mg/dL (8.4-10.2); CARBON DIOXIDE 25 mmol/L (22-30); CHLORIDE 113 mmol/L (98-107); GLUCOSE 89 mg/dL (75-110); PHOSPHORUS 5.2 mg/dL (2.5-4.5); POTASSIUM 4.5 mmol/L (3.6-5.0); SODIUM 148.4 mmol/L (137-145)
[2017-09-16] MEDS: AMPICILLIN SODIUM/SULBACTAM NA 3 GM in NORMAL SALINE 100 ML IV SCH ×2 (14:07→18:16)
[2017-09-16 14:22] LABS: ABSOLUTE BASOPHILS # (AUTO) 0.1 10^3/uL (0.0-0.2); ABSOLUTE EOSINOPHILS # (AUTO) 0.5 10^3/uL (0.0-0.6); ABSOLUTE LYMPHOCYTES (AUTO) 1.1 10^3/uL (0.5-4.7); ABSOLUTE MONOCYTES (AUTO) 1.1 10^3/uL (0.1-1.4); ABSOLUTE NEUT (AUTO) 12.3 10^3/uL (1.7-8.2); BASOPHILS % (AUTO) 0.8 % (0-2); EOSINOPHILS % (AUTO) 3.3 % (0-6); HEMATOCRIT 29.8 % (36.0-47.0); HEMOGLOBIN 9.4 g/dL (12.0-15.5); LYMPHOCYTES % (AUTO) 7.1 % (13-45); MEAN CORPUSCULAR HEMOGLOBIN 26.1 pg (27.0-33.4); MEAN CORPUSCULAR HGB CONC 31.5 g/dL (32.0-36.0); MEAN CORPUSCULAR VOLUME 83 fl (80-97); MONOCYTES % (AUTO) 7.5 % (3-13); SEGMENTED NEUTROPHILS % (AUTO) 81.3 % (42-78); TOTAL CELLS COUNTED % (AUTO) 100 %; WHITE BLOOD COUNT 15.1 10^3/uL (4.0-10.5)
[2017-09-16 14:48] LABS: ALANINE AMINOTRANSFERASE 33 U/L (9-52); ALBUMIN 3.1 g/dL (3.5-5.0); ALKALINE PHOSPHATASE 137 U/L (38-126); ANION GAP 13 (5-19); ASPARTATE AMINO TRANSFERASE 39 U/L (14-36); BILIRUBIN,DIRECT 0.3 mg/dL (0.0-0.4); BILIRUBIN,TOTAL 0.9 mg/dL (0.2-1.3); BLOOD UREA NITROGEN 36 mg/dL (7-20); CARBON DIOXIDE 22 mmol/L (22-30); CHLORIDE 113 mmol/L (98-107); GLUCOSE 97 mg/dL (75-110); PHOSPHORUS 5.5 mg/dL (2.5-4.5); POTASSIUM 4.8 mmol/L (3.6-5.0); SODIUM 147.6 mmol/L (137-145)
[2017-09-16 15:06] LABS: PLATELET COUNT 266 10^3/uL (150-450)
[2017-09-16 15:12] LABS: OSMOLALITY,URINE 569 mOsm/kg (300-900)
[2017-09-16] MEDS ORDERED: DEXTROSE 5%-WATER 1000 ML 1,000 ML IV ONE (15:26)
[2017-09-16 15:37] LABS: URINE SODIUM 84 mmol/L (30-90)
--- NOTE | 2017-09-16 15:47 | PDOC CONSULTATION ---
Consultation Consult Date: 09/16/17 Attending physician:: CALLIE LA Consult reason:: I was asked with Dr. La to see the patient because of hypernatremia. History of Present Illness Admission Date/PCP: 09/14/17 19:43 DEBBIE PICKARD MD History of Present Illness: MOHAN ALVARENGA is a 87 year old female from [facility] with history of atrial fibrillation, congestive heart failure, hypertension, and most recent CVA on tube feedings who was admitted on September 14 because of tachypnea. Patient is currently being treated for aspiration pneumonia with antibiotics. Patient is really unable to give any further history because of dysarthria. She somehow tries to respond but her speech is somewhat garbled and difficult to understand. So she was noted to be tachypneic and somnolent and at [facility] so EMS was called and she was brought to the emergency room and subsequently admitted. She was initially given normal saline for the first 24 hours but that was discontinued. Unfortunately she has not been started on her tube feedings yesterday due to some order confusions. She is about to start her tube feeding this afternoon. So essentially there seems to be no intake to tube feeding for maybe 24 hours. Her sodium when she came in was 143.2 and this morning it went up to 148.4 with a repeat of 147.6. Her chloride also went up from 107-113 today. Her phosphorus is elevated at 5.5. Her kidney function is stable and slightly at baseline. Past Medical History Cardiac Medical History: Reports: Atrial Fibrillation, CHF-Systolic, Hypertension-primary EENT Medical History: Reports: Other - PT HAS A SOFT 4 CM RIGHT NECK MASS . PER REPORT PER FAMILY - UNDER EVAL. Neurological Medical History: Reports: Ischemic CVA Renal/ Medical History: Reports: Chronic Kidney Disease Stage III GI Medical History: Reports: Hiatal Hernia Skin Medical History: Reports: Other - STAGE 1 SACRAL BEDSORE AND RIHT LABIA SKIN BREAKDOWN . Past Surgical History Past Surgical History: Reports: Cholecystectomy, Hysterectomy Social History Information Source[facility] Smoking Status: Unknown if Ever Smoked Frequency of Alcohol Use: None Hx Recreational Drug Use: No Drugs: None Hx Prescription Drug Abuse: No - Advance Directive Resuscitation Status: Full Code Family History Family History: Reviewed & Not Pertinent Parental Family History Reviewed: Yes Children Family History Reviewed: Unknown Sibling(s) Family History Reviewed.: Unknown Medication/Allergy Home Medications: Apixaban [Eliquis 2.5 mg Tablet] 2.5 mg GT Q12 09/14/17 Atorvastatin Calcium [Lipitor 40 mg Tablet] 40 mg GT QHS 09/14/17 Furosemide [Lasix 20 mg Tablet] 20 mg GT DAILY 09/14/17 Metoprolol Tartrate [Lopressor 100 mg Tablet] 100 mg GT Q12 09/14/17 Allergies/Adverse Reactions: aspirin [Aspirin] Allergy (Intermediate, Verified 09/14/17 20:35) GI BLEED Sulfa (Sulfonamide Antibiotics) Allergy (Verified 09/14/17 20:35) Review of Systems ROS unobtainable: Other - Patient really is unable to verbalize any complaints at this time. Physical Exam Vital Signs: Temp Pulse Resp BP Pulse Ox 98.0 F 87 16 127/66 H 96 09/16/17 07:33 09/16/17 07:33 09/16/17 07:33 09/16/17 07:33 09/16/17 12:15 Pulse Oximeter Continuous Start: 09/14/17 19: 28 Freq: RTQ4 Status: Active Document 09/16/17 12:15 [facility] (Rec: 09/16/17 13:59 [facility] [id number]) Pulse Oximetry Assessment Oxygen Saturation (92-100) 96 Oxygen Flow Rate (L/min) 3 Oxygen Delivery Method Nasal Cannula Equipment Usage Equipment in Use Continuous SpO2 Machine # 7 Intake & Output 09/15/17 09/16/17 09/17/17 06:59 06:59 06:59 Intake Total 1000 Output Total 1175 1250 Balance -175 -1250 Weight 63.6 kg 64.8 kg Exam: General appearance: no acute distress although she does with deeply and appears labored at times but oxygenation is adequate, cooperative, well-developed, well- nourished Head exam: PRESENT: atraumatic, normocephalic Eye exam: PRESENT: Conjunctiva pale, EOMI, PERRLA. ABSENT: conjunctival injection, scleral icterus Mouth exam: PRESENT: Somewhat dry oral mucosa, neck supple, tongue midline Neck exam: PRESENT: full ROM. ABSENT: carotid bruit, JVD, lymphadenopathy, thyromegaly Respiratory exam: PRESENT: Diminished to auscultation bilaterally. ABSENT: rales, rhonchi, stridor, wheezes Cardiovascular exam: PRESENT: Irregularly irregular, +S1, +S2. ABSENT: systolic murmur Pulses: PRESENT: normal radial pulses, normal dorsalis pedis pulses GI/Abdominal exam: PRESENT: normal bowel sounds, soft. PEG tube in place in left upper quadrant ABSENT: guarding, mass, tenderness Rectal exam: deferred Extremities exam: PRESENT: She can move her upper extremities more on her left side and currently not moving her lower extremities much. ABSENT: calf tenderness, pedal edema Musculoskeletal: PRESENT: Limited range of motion. ABSENT: deformity Neurological exam: PRESENT: alert, Awake, orientation cannot be assessed at this time. She has shallow right nasolabial folds. The right upper extremity strength is only about 3/5 compared to 4/5 on the left upper extremities. Difficult to access strength in lower extremities at this time. Psychiatric exam: PRESENT: appropriate affect, normal mood. Skin exam: PRESENT: intact, dry, warm. ABSENT: rash Results Laboratory Results: 09/16/17 13:57 09/16/17 13:57 09/16/17 09/16/17 09/16/17 05:20 13:55 13:57 WBC 15.1 H RBC 3.60 L Hgb 9.4 L Hct 29.8 L MCV 83 MCH 26.1 L MCHC 31.5 L RDW 18.0 H Plt Count 266 Seg Neutrophils % 81.3 H Lymphocytes % 7.1 L Monocytes % 7.5 Eosinophils % 3.3 Basophils % 0.8 Absolute Neutrophils 12.3 H Absolute Lymphocytes 1.1 Absolute Monocytes 1.1 Absolute Eosinophils 0.5 Absolute Basophils 0.1 Sodium 148.4 H Potassium 4.5 Chloride 113 H Carbon Dioxide 25 Anion Gap 10 BUN 37 H Creatinine 1.06 Est GFR ( Amer) > 60 Est GFR (Non-Af Amer) 49 L Glucose 89 Serum Osmolality Calcium 9.8 Phosphorus 5.2 H Magnesium 2.3 Total Bilirubin AST ALT Alkaline Phosphatase Total Protein Albumin Urine Osmolality 569 09/16/17 09/16/17 13:57 13:57 WBC RBC Hgb Hct MCV MCH MCHC RDW Plt Count Seg Neutrophils % Lymphocytes % Monocytes % Eosinophils % Basophils % Absolute Neutrophils Absolute Lymphocytes Absolute Monocytes Absolute Eosinophils Absolute Basophils Sodium 147.6 H Potassium 4.8 Chloride 113 H Carbon Dioxide 22 Anion Gap 13 BUN 36 H Creatinine 1.06 Est GFR ( Amer) > 60 Est GFR (Non-Af Amer) 49 L Glucose 97 Serum Osmolality 314 H Calcium 10.0 Phosphorus 5.5 H Magnesium 2.3 Total Bilirubin 0.9 AST 39 H ALT 33 Alkaline Phosphatase 137 H Total Protein 7.0 Albumin 3.1 L Urine Osmolality 09/16/17 05:20 NT-Pro-B Natriuret Pep 5190 H Impressions: Head CT 09/14/17 00:00 IMPRESSION: CHRONIC MICROVASCULAR ISCHEMIA. NO ACUTE IMAGING FINDINGS IN THE BRAIN. EVIDENCE OF ACUTE STROKE: NO. Chest X-Ray 09/14/17 15:12 IMPRESSION: NO ACUTE RADIOGRAPHIC FINDING IN THE CHEST. Assessment & Plan - Diagnosis (1) Hypernatremia Is this a current diagnosis for this admission?: Yes Plan: This is due to dehydration. Agree with starting the patient's tube feedings. We will also give the patient a liter of D5 water at 75 mL an hour. Repeat labs tomorrow morning. (2) Dehydration Is this a current diagnosis for this admission?: Yes (3) Hyperphosphatemia Is this a current diagnosis for this admission?: Yes Plan: Due to chronic kidney disease. Dehydration can also make this worse. (4) Stage III chronic kidney disease Is this a current diagnosis for this admission?: Yes Plan: Stable and seems to be at baseline. (5) Atrial fibrillation Qualifiers: Atrial fibrillation type: chronic Qualified Code(s): I48.2 - Chronic atrial fibrillation Is this a current diagnosis for this admission?: Yes (6) Hypertension Qualifiers: Hypertension type: essential hypertension Qualified Code(s): I10 - Essential (primary) hypertension Is this a current diagnosis for this admission?: Yes - Notes Notes: Thank you very much for this consultation. - Time Time Spent: 50 to 70 Minutes
--- NOTE | 2017-09-16 22:36 | PDOC PROGRESS REPORT ---
Subjective Progress Note for:: 09/15/17 Subjective:: Patient seen today for follow-up for shortness of breath. Patient is doing well and is started on treatment for Aspiration pneumonia with Unasyn. Patient's white count and neutrophil count is decreased. Patient to have tube feeds restarted we will place nutrition consult. Until the nurse give an order to give Glucerna 2.0- peg 150 mL flushes. Reason For Visit: PNEUMONIA Physical Exam Vital Signs: Temp Pulse Resp BP Pulse Ox 97.8 F 124 H 20 136/56 H 94 09/16/17 15:13 09/16/17 19:00 09/16/17 15:13 09/16/17 15:13 09/16/17 20:00 Pulse Oximeter Continuous Start: 09/14/17 19: 28 Freq: RTQ4 Status: Active Document 09/16/17 20:00 [facility] (Rec: 09/16/17 20:02 [facility] [id number]) Pulse Oximetry Assessment Oxygen Saturation (92-100) 94 Oxygen Flow Rate (L/min) 3 Oxygen Delivery Method Nasal Cannula Fraction of Inspired Oxygen (FIO2) 32 Equipment Usage Equipment in Use Continuous SpO2 Machine # 7 Intake & Output 09/15/17 09/16/17 09/17/17 06:59 06:59 06:59 Intake Total 1000 200 Output Total 1175 1250 950 Balance -175 -1250 -750 Weight 140 lb 3.424 oz 142 lb 13.753 oz General appearance: PRESENT: no acute distress, cooperative Head exam: PRESENT: atraumatic, normocephalic Eye exam: PRESENT: EOMI Respiratory exam: PRESENT: clear to auscultation austen Cardiovascular exam: PRESENT: RRR GI/Abdominal exam: PRESENT: normal bowel sounds, soft. ABSENT: distended, tenderness Neurological exam: PRESENT: alert, awake Results Laboratory Results: 09/16/17 13:57 09/16/17 13:57 09/16/17 09/16/17 09/16/17 05:20 13:55 13:57 WBC 15.1 H RBC 3.60 L Hgb 9.4 L Hct 29.8 L MCV 83 MCH 26.1 L MCHC 31.5 L RDW 18.0 H Plt Count 266 Seg Neutrophils % 81.3 H Lymphocytes % 7.1 L Monocytes % 7.5 Eosinophils % 3.3 Basophils % 0.8 Absolute Neutrophils 12.3 H Absolute Lymphocytes 1.1 Absolute Monocytes 1.1 Absolute Eosinophils 0.5 Absolute Basophils 0.1 Sodium 148.4 H Potassium 4.5 Chloride 113 H Carbon Dioxide 25 Anion Gap 10 BUN 37 H Creatinine 1.06 Est GFR ( Amer) > 60 Est GFR (Non-Af Amer) 49 L Glucose 89 Serum Osmolality Calcium 9.8 Phosphorus 5.2 H Magnesium 2.3 Total Bilirubin AST ALT Alkaline Phosphatase Total Protein Albumin Urine Osmolality 569 09/16/17 09/16/17 13:57 13:57 WBC RBC Hgb Hct MCV MCH MCHC RDW Plt Count Seg Neutrophils % Lymphocytes % Monocytes % Eosinophils % Basophils % Absolute Neutrophils Absolute Lymphocytes Absolute Monocytes Absolute Eosinophils Absolute Basophils Sodium 147.6 H Potassium 4.8 Chloride 113 H Carbon Dioxide 22 Anion Gap 13 BUN 36 H Creatinine 1.06 Est GFR ( Amer) > 60 Est GFR (Non-Af Amer) 49 L Glucose 97 Serum Osmolality 314 H Calcium 10.0 Phosphorus 5.5 H Magnesium 2.3 Total Bilirubin 0.9 AST 39 H ALT 33 Alkaline Phosphatase 137 H Total Protein 7.0 Albumin 3.1 L Urine Osmolality 09/16/17 05:20 NT-Pro-B Natriuret Pep 5190 H Impressions: Head CT 09/14/17 00:00 IMPRESSION: CHRONIC MICROVASCULAR ISCHEMIA. NO ACUTE IMAGING FINDINGS IN THE BRAIN. EVIDENCE OF ACUTE STROKE: NO. Chest X-Ray 09/14/17 15:12 IMPRESSION: NO ACUTE RADIOGRAPHIC FINDING IN THE CHEST. Assessment & Plan - Diagnosis (1) Aspiration pneumonia Qualifiers: Aspiration pneumonia type: due to regurgitated food Laterality: unspecified laterality Lung location: unspecified part of lung Qualified Code(s): J69.0 - Pneumonitis due to inhalation of food and vomit Is this a current diagnosis for this admission?: Yes Plan: pt stated on iv unasyn for presumed aspiration pneumonitis. cxray negative. (2) Atrial fibrillation Qualifiers: Atrial fibrillation type: chronic Qualified Code(s): I48.2 - Chronic atrial fibrillation Is this a current diagnosis for this admission?: Yes Plan: rate controlled. continue eliquis. (3) Chronic kidney disease Qualifiers: Chronic kidney disease stage: stage 3 (moderate) Qualified Code(s): N18.3 - Chronic kidney disease, stage 3 (moderate) Is this a current diagnosis for this admission?: Yes Plan: Kidney function stable. Blood pressure control. (4) Hypertension Qualifiers: Hypertension type: essential hypertension Qualified Code(s): I10 - Essential (primary) hypertension Is this a current diagnosis for this admission?: Yes Plan: Patient to continue Lopressor . Of note, patient had echocardiogram done on 09/29/2015, which showed normal ventricular Wall thickness size with low normal systolic function. Left atrium is mildly dilated. Moderate pulmonary hypertension by echo. (5) Systolic dysfunction Is this a current diagnosis for this admission?: Yes Plan: Patient has an abnormal BNP with low normal systolic function noted on echocardiogram Done in 2016. We will repeat echocardiogram in a.m. We will start diuretic therapy necessary.
--- NOTE | 2017-09-16 22:41 | PDOC PROGRESS REPORT ---
Subjective Progress Note for:: 09/16/17 Subjective:: Patient seen today for follow-up for shortness of breath. Patient is doing well and is started on treatment for Aspiration pneumonia with Unasyn. Patient's white count and neutrophil count is decreased. Patient to have tube feeds restarted we will place nutrition consult. Until the nurse give an order to give Glucerna 2.0- peg 150 mL flushes. 09/16/17 Patient seen today for follow-up. Family at bedside. Informed them that we will cont patient on antibiotic therapy . We will also monitor patient's sodium level. Nutrition seen patient started on Jevity via PEG q. 2 flushes. Reason For Visit: PNEUMONIA Physical Exam Vital Signs: Temp Pulse Resp BP Pulse Ox 97.8 F 124 H 20 136/56 H 94 09/16/17 15:13 09/16/17 19:00 09/16/17 15:13 09/16/17 15:13 09/16/17 20:00 Pulse Oximeter Continuous Start: 09/14/17 19: 28 Freq: RTQ4 Status: Active Document 09/16/17 20:00 [facility] (Rec: 09/16/17 20:02 [facility] [id number]) Pulse Oximetry Assessment Oxygen Saturation (92-100) 94 Oxygen Flow Rate (L/min) 3 Oxygen Delivery Method Nasal Cannula Fraction of Inspired Oxygen (FIO2) 32 Equipment Usage Equipment in Use Continuous SpO2 Machine # 7 Intake & Output 09/15/17 09/16/17 09/17/17 06:59 06:59 06:59 Intake Total 1000 200 Output Total 1175 1250 950 Balance -175 -1250 -750 Weight 140 lb 3.424 oz 142 lb 13.753 oz Results Laboratory Results: 09/16/17 13:57 09/16/17 13:57 09/16/17 09/16/17 09/16/17 05:20 13:55 13:57 WBC 15.1 H RBC 3.60 L Hgb 9.4 L Hct 29.8 L MCV 83 MCH 26.1 L MCHC 31.5 L RDW 18.0 H Plt Count 266 Seg Neutrophils % 81.3 H Lymphocytes % 7.1 L Monocytes % 7.5 Eosinophils % 3.3 Basophils % 0.8 Absolute Neutrophils 12.3 H Absolute Lymphocytes 1.1 Absolute Monocytes 1.1 Absolute Eosinophils 0.5 Absolute Basophils 0.1 Sodium 148.4 H Potassium 4.5 Chloride 113 H Carbon Dioxide 25 Anion Gap 10 BUN 37 H Creatinine 1.06 Est GFR ( Amer) > 60 Est GFR (Non-Af Amer) 49 L Glucose 89 Serum Osmolality Calcium 9.8 Phosphorus 5.2 H Magnesium 2.3 Total Bilirubin AST ALT Alkaline Phosphatase Total Protein Albumin Urine Osmolality 569 09/16/17 09/16/17 13:57 13:57 WBC RBC Hgb Hct MCV MCH MCHC RDW Plt Count Seg Neutrophils % Lymphocytes % Monocytes % Eosinophils % Basophils % Absolute Neutrophils Absolute Lymphocytes Absolute Monocytes Absolute Eosinophils Absolute Basophils Sodium 147.6 H Potassium 4.8 Chloride 113 H Carbon Dioxide 22 Anion Gap 13 BUN 36 H Creatinine 1.06 Est GFR ( Amer) > 60 Est GFR (Non-Af Amer) 49 L Glucose 97 Serum Osmolality 314 H Calcium 10.0 Phosphorus 5.5 H Magnesium 2.3 Total Bilirubin 0.9 AST 39 H ALT 33 Alkaline Phosphatase 137 H Total Protein 7.0 Albumin 3.1 L Urine Osmolality 09/16/17 05:20 NT-Pro-B Natriuret Pep 5190 H Impressions: Head CT 09/14/17 00:00 IMPRESSION: CHRONIC MICROVASCULAR ISCHEMIA. NO ACUTE IMAGING FINDINGS IN THE BRAIN. EVIDENCE OF ACUTE STROKE: NO. Chest X-Ray 09/14/17 15:12 IMPRESSION: NO ACUTE RADIOGRAPHIC FINDING IN THE CHEST. Assessment & Plan - Diagnosis (1) Aspiration pneumonia Qualifiers: Aspiration pneumonia type: due to regurgitated food Laterality: unspecified laterality Lung location: unspecified part of lung Qualified Code(s): J69.0 - Pneumonitis due to inhalation of food and vomit Is this a current diagnosis for this admission?: Yes Plan: pt stated on iv unasyn for presumed aspiration pneumonitis. cxray negative. (2) Atrial fibrillation Qualifiers: Atrial fibrillation type: chronic Qualified Code(s): I48.2 - Chronic atrial fibrillation Is this a current diagnosis for this admission?: Yes Plan: rate controlled. continue eliquis. (3) Hypertension Qualifiers: Hypertension type: essential hypertension Qualified Code(s): I10 - Essential (primary) hypertension Is this a current diagnosis for this admission?: Yes Plan: Patient to continue Lopressor . Of note, patient had echocardiogram done on 09/29/2015, which showed normal ventricular Wall thickness size with low normal systolic function. Left atrium is mildly dilated. Moderate pulmonary hypertension by echo. (4) Systolic dysfunction Is this a current diagnosis for this admission?: Yes Plan: Patient has an abnormal BNP with low normal systolic function noted on echocardiogram Done in 2016. Echocardiogram report is pending. We will start diuretic therapy necessary.
[2017-09-16] MEDS ORDERED: APIXABAN 2.5 MG TABLET GT ONE (22:45)
[2017-09-16] MEDS ORDERED: ATORVASTATIN CALCIUM 40 MG TABLET GT ONE (22:45)
--- NOTE | 2017-09-16 23:18 | XCELERA REPORT ---
[address] [address] Transthoracic Echocardiogram Report Name: MOHAN ALVARENGA Age: 87 yrs Gender: Female : 1930 Patient Status: Inpatient Patient Location: [address] [place] [address] Study Date: 09/16/2017 04:57 PM Procedure: A complete two-dimensional transthoracic echocardiogram was performed (2D, M-mode, spectral and color flow Doppler). The study was technically difficult with many images being suboptimal in quality. Reason For Study: Tachycardia Ordering Physician: LOTUS DODSON Performed By: Lorrie Carolina Interpretation Summary The left ventricular ejection fraction is normal. There is mild concentric left ventricular hypertrophy. The left ventricle is grossly normal size. LV diastolic function could not be adequately assessed due to atrial fibrilation. Wall motion cannot be accurately commented on, but no definite regional wall motion abnormalities noted. The right ventricle is mildly dilated. The right ventricular systolic function is normal. The right atrium is mild to moderately dilated. The left atrium is mildly dilated. There is no mitral valve stenosis. There is a trace to mild amount of mitral regurgitation There is no aortic valve stenosis There is a trace to mild amount of aortic regurgitation There is a mild amount of tricuspid regurgitation There is servere pulmonary hypertension by echo Best estimated RVSP is approximately 65-70 mm/Hg. The inferior vena cava appeared normal and decreased < 50% with respiration (RAP 10-15 mmHg) The aortic root is not well visualized but is probably normal size. There is no pericardial effusion. MMode/2D Measurements & Calculations RVDd: 3.1 cm LVIDd: 3.9 cm FS: 30.7 % Ao root diam: 2.8 cm IVSd: 1.2 cm LVIDs: 2.7 cm EDV(Teich): 67.4 ml Ao root area: 6.3 cm2 LVPWd: 1.0 cm ESV(Teich): 27.7 ml EF(Teich): 58.9 % Doppler Measurements & Calculations MV E max bon: MV dec slope: Ao V2 max: AI max bon: 111.5 cm/sec 114.8 cm/sec 287.0 cm/sec MV A max bon: 829.9 cm/sec2 Ao max PG: AI max P.0 mmHg 38.1 cm/sec MV dec time: 5.3 mmHg AI dec slope: MV E/A: 2.9 0.13 sec 230.4 cm/sec2 AI P1/2t: 364.9 msec LV V1 max PG: PA V2 max: TR max bon: 4.1 mmHg 116.7 cm/sec 376.3 cm/sec LV V1 max: PA max P.4 mmHg TR max P.8 cm/sec 56.9 mmHg Left Ventricle The left ventricle is grossly normal size. There is mild concentric left ventricular hypertrophy. The left ventricular ejection fraction is normal. LV diastolic function could not be adequately assessed due to atrial fibrilation. Wall motion cannot be accurately commented on, but no definite regional wall motion abnormalities noted. Right Ventricle The right ventricle is mildly dilated. There is normal right ventricular wall thickness. The right ventricular systolic function is normal. Atria The right atrium is mild to moderately dilated. The left atrium is mildly dilated. Interarterial septum not well visualized and not well dopplered. Cannot comment on ASD/PFO presence. Mitral Valve The mitral valve leaflets are sclerotic, but show no functional abnormalities. There is no mitral valve stenosis. There is a trace to mild amount of mitral regurgitation. Aortic Valve The aortic valve is sclerotic, but shows no functional abnormality. There is no aortic valve stenosis. There is a trace to mild amount of aortic regurgitation. Tricuspid Valve The tricuspid valve is not well visualized, but is grossly normal. There is no tricuspid stenosis. There is a mild amount of tricuspid regurgitation. There is servere pulmonary hypertension by echo. Best estimated RVSP is approximately 65-70 mm/Hg. Pulmonic Valve The pulmonic valve is not well visualized. Great Vessels The aortic root is not well visualized but is probably normal size. The inferior vena cava appeared normal and decreased < 50% with respiration (RAP 10-15 mmHg). Effusions There is no pericardial effusion. : LOTUS DODSON > Lotus Dodson
--- NOTE | 2017-09-16 23:29 | PDOC CONSULTATION ---
Consultation Consult Date: 09/16/17 Attending physician:: CALLIE LA Consult reason:: Tachycardia, atrial fibrillation with RVR History of Present Illness Admission Date/PCP: 09/14/17 19:43 DEBBIE PICKARD MD Patient complains of: Generalized weakness History of Present Illness: MOHAN ALVARENGA is a 87 year old female presented to er from [facility] via EMS for increased respiratory rate. pt noted to be tachypneic and more somnolent upon arrival. pt had her eliquis restarted which is probably why pt has some bruising on her forearm and foot. pt is alone no family at bedside. pt was recently discharged to [facility] for rehab from her recent cva in august 2017. today pt is awake and alert and answers questions . And also follows commands. she is hard of hearing. pt is really dry and also noted to have snoring and periods of apnea and falls asleep and snores frequently. Per family report pt has had diarrhea. Patient had ER visits because of epistaxis following which Eliquis was stopped but it seems subsequently could have been restarted. Patient has prior history of stroke and it seems paroxysmal atrial fibrillation. Patient was recently evaluated in my office. Past Medical History Cardiac Medical History: Reports: Atrial Fibrillation, Congestive Heart Failure , Hypertension, Other - CVA EENT Medical History: Reports: None, Other - PT HAS A SOFT 4 CM RIGHT NECK MASS . PER REPORT PER FAMILY - UNDER EVAL. Neurological Medical History: Reports: Ischemic CVA Endocrine Medical History: Reports: None GI Medical History: Reports: Hiatal Hernia Skin Medical History: Reports: Other - STAGE 1 SACRAL BEDSORE AND RIHT LABIA SKIN BREAKDOWN . Psychiatric Medical History: Reports: None Hematology: Reports: Anemia, Other - PT HAS A SOFT 4 CM RIGHT NECK MASS . PER REPORT PER FAMILY - UNDER EVAL. Denies: Sickle Cell Disease Infectious Medical History: Reports: None Past Surgical History Past Surgical History: Reports: Cholecystectomy, Hysterectomy Denies: Amputation Social History Information Source: Relative Smoking Status: Unknown if Ever Smoked Frequency of Alcohol Use: None Hx Recreational Drug Use: No Drugs: None Hx Prescription Drug Abuse: No - Advance Directive Resuscitation Status: Full Code Surrogate healthcare decision maker:: Patient's son is the surrogate decision-maker Family History Family History: Hypertension Parental Family History Reviewed: Yes Children Family History Reviewed: Yes Sibling(s) Family History Reviewed.: Yes Medication/Allergy Home Medications: Apixaban [Eliquis 2.5 mg Tablet] 2.5 mg GT Q12 09/14/17 Atorvastatin Calcium [Lipitor 40 mg Tablet] 40 mg GT QHS 09/14/17 Furosemide [Lasix 20 mg Tablet] 20 mg GT DAILY 09/14/17 Metoprolol Tartrate [Lopressor 100 mg Tablet] 100 mg GT Q12 09/14/17 Allergies/Adverse Reactions: aspirin [Aspirin] Allergy (Intermediate, Verified 09/14/17 20:35) GI BLEED Sulfa (Sulfonamide Antibiotics) Allergy (Verified 09/14/17 20:35) Review of Systems ROS unobtainable: Due to mental status Physical Exam Vital Signs: Temp Pulse Resp BP Pulse Ox 98.5 F 107 H 19 131/60 H 96 09/16/17 20:04 09/16/17 20:04 09/16/17 20:04 09/16/17 20:04 09/16/17 20:04 Pulse Oximeter Continuous Start: 09/14/17 19: 28 Freq: RTQ4 Status: Active Document 09/16/17 20:00 [facility] (Rec: 09/16/17 20:02 [facility] [id number]) Pulse Oximetry Assessment Oxygen Saturation (92-100) 94 Oxygen Flow Rate (L/min) 3 Oxygen Delivery Method Nasal Cannula Fraction of Inspired Oxygen (FIO2) 32 Equipment Usage Equipment in Use Continuous SpO2 Machine # 7 Intake & Output 09/15/17 09/16/17 09/17/17 06:59 06:59 06:59 Intake Total 1000 200 Output Total 1175 1250 950 Balance -175 -1250 -750 Weight 63.6 kg 64.8 kg Exam: GENERAL: well-nourished and in no acute distress. Patient is alert but not oriented to place time or person. Patient noted to be very lethargic but comfortable HEAD: Atraumatic, normocephalic. EYES: Pupils equal round and reactive to light, extraocular movements intact, sclera anicteric, conjunctiva are normal. ENT: TMs normal, nares patent, oropharynx clear without exudates. Moist mucous membranes. No oral ulcerations or bleeding gums noted NECK: supple without lymphadenopathy or JVD. Trachea is central. No cervical or axillary lymphadenopathy noted. Carotids are 2+ LUNGS: Breath sounds bibasilar fine crackles at bases. No significant dullness noted. CHEST: Palpation of chest wall shows no significant chest wall tenderness. HEART: [place] [employer], No PSH, 2/6 KEVYN aortic area, 1/6 [place] systolic murmur mitral area, rubs or gallops. ABDOMEN: Soft, no significant tenderness appreciated, normoactive bowel sounds. No guarding, no rebound. No rigidity noted . No masses appreciated. EXTREMITIES: Pedal pulses are 1-2+, no calf tenderness noted, Trace + pedal edema noted. No clubbing or cyanosis. NEUROLOGICAL: Patient is alert but is not able to participate in neurological exam because of patient's current mental status PSYCH: Patient cannot participate in a neurologic and psych exam because of the patient's current mental status SKIN: No significant ecchymosis, rash, ulcerations or signs of pruritus noted. Stage I decubitus reported MUSCULOSKELETAL EXAM: No significant joint swelling noted. Results Laboratory Results: 09/16/17 13:57 09/16/17 13:57 09/16/17 09/16/17 09/16/17 05:20 13:55 13:57 WBC 15.1 H RBC 3.60 L Hgb 9.4 L Hct 29.8 L MCV 83 MCH 26.1 L MCHC 31.5 L RDW 18.0 H Plt Count 266 Seg Neutrophils % 81.3 H Lymphocytes % 7.1 L Monocytes % 7.5 Eosinophils % 3.3 Basophils % 0.8 Absolute Neutrophils 12.3 H Absolute Lymphocytes 1.1 Absolute Monocytes 1.1 Absolute Eosinophils 0.5 Absolute Basophils 0.1 Sodium 148.4 H Potassium 4.5 Chloride 113 H Carbon Dioxide 25 Anion Gap 10 BUN 37 H Creatinine 1.06 Est GFR ( Amer) > 60 Est GFR (Non-Af Amer) 49 L Glucose 89 Serum Osmolality Calcium 9.8 Phosphorus 5.2 H Magnesium 2.3 Total Bilirubin AST ALT Alkaline Phosphatase Total Protein Albumin Urine Osmolality 569 09/16/17 09/16/17 13:57 13:57 WBC RBC Hgb Hct MCV MCH MCHC RDW Plt Count Seg Neutrophils % Lymphocytes % Monocytes % Eosinophils % Basophils % Absolute Neutrophils Absolute Lymphocytes Absolute Monocytes Absolute Eosinophils Absolute Basophils Sodium 147.6 H Potassium 4.8 Chloride 113 H Carbon Dioxide 22 Anion Gap 13 BUN 36 H Creatinine 1.06 Est GFR ( Amer) > 60 Est GFR (Non-Af Amer) 49 L Glucose 97 Serum Osmolality 314 H Calcium 10.0 Phosphorus 5.5 H Magnesium 2.3 Total Bilirubin 0.9 AST 39 H ALT 33 Alkaline Phosphatase 137 H Total Protein 7.0 Albumin 3.1 L Urine Osmolality 09/16/17 05:20 NT-Pro-B Natriuret Pep 5190 H EKG Comments: Twelve-lead EKG shows atrial fibrillation with rapid ventricular response. No acute ST-T wave changes noted Impressions: Head CT 09/14/17 00:00 IMPRESSION: CHRONIC MICROVASCULAR ISCHEMIA. NO ACUTE IMAGING FINDINGS IN THE BRAIN. EVIDENCE OF ACUTE STROKE: NO. Chest X-Ray 09/14/17 15:12 IMPRESSION: NO ACUTE RADIOGRAPHIC FINDING IN THE CHEST. Assessment & Plan - Diagnosis (1) Atrial fibrillation Qualifiers: Atrial fibrillation type: chronic Qualified Code(s): I48.2 - Chronic atrial fibrillation Is this a current diagnosis for this admission?: Yes (2) Hypertension Qualifiers: Hypertension type: essential hypertension Qualified Code(s): I10 - Essential (primary) hypertension Is this a current diagnosis for this admission?: Yes (3) History of cerebrovascular accident Is this a current diagnosis for this admission?: Yes (4) Dyspnea Qualifiers: Dyspnea type: dyspnea on exertion Qualified Code(s): R06.09 - Other forms of dyspnea Is this a current diagnosis for this admission?: Yes - Notes Notes: Atrial fibrillation: Heart rate is somewhat increased. Currently on metoprolol tartrate for rate control. Will recommend switch to metoprolol succinate for a much smoother action. Continue Eliquis if no bleeding complications but patient at increased risk of bleed due to her age. Hypertension: Blood pressure under reasonable control. Will recommend liberal control at her age. Cerebrovascular accident: Patient has history of CVA, possibly also have underlying dementia causing mental status changes. Patient has elevated white cell count therefore could have underlying infection. Dyspnea: BNP is noted to be elevated. May consider ruling out pulmonary embolism. However patient may not be able to cooperate with such testing therefore empiric continuation of Eliquis may be all just is required - Time Time Spent: 30 to 50 Minutes - CODE STATUS was discussed, patient remains full code. Surrogate decision-maker unchanged. Multiple medical problems were addressed. More than 50% of the time spent coordinating care, discussing management plans with involved caregivers. Management plans discussed with involved personnels. Medical decision making was of moderate to high complexity , patient's has multiple comorbidities. Medications reviewed and adjusted accordingly: Yes
[2017-09-17] MEDS: AMPICILLIN SODIUM/SULBACTAM NA 3 GM in NORMAL SALINE 100 ML IV SCH ×2 (00:52→05:34)
[2017-09-17 04:56] LABS: ANION GAP 12 (5-19); BLOOD UREA NITROGEN 39 mg/dL (7-20); CALCIUM 9.4 mg/dL (8.4-10.2); CARBON DIOXIDE 22 mmol/L (22-30); CHLORIDE 116 mmol/L (98-107); GLUCOSE 127 mg/dL (75-110); PHOSPHORUS 4.5 mg/dL (2.5-4.5); POTASSIUM 4.2 mmol/L (3.6-5.0); SODIUM 149.5 mmol/L (137-145)
[2017-09-17] MEDS: LANSOPRAZOLE 30 MG TAB.RAP.DR PO SCH ×2 (05:33→17:14)
[2017-09-17] MEDS: METOPROLOL TARTRATE 50 MG TABLET PEG SCH (05:33)
[2017-09-17] MEDS ORDERED: METOPROLOL TARTRATE 100 MG TABLET GT SCH (08:00)
[2017-09-17 10:17] LABS: ARTERIAL BLOOD BASE EXCESS 0.4 mmol/L; ARTERIAL BLOOD FIO2 2; ARTERIAL BLOOD O2 SATURATION 94.8 % (94-98); ARTERIAL BLOOD PH 7.41 (7.35-7.45); ARTERIAL BLOOD PO2 72.4 mmHg (80-100); ARTERIAL BLOOD TOTAL CO2 26.2 mmol/L (21-25)
[2017-09-17] MEDS ORDERED: VANCOMYCIN HCL 0 MG in DEXTROSE 5%-WATER 250 ML IV NR (11:15)
--- NOTE | 2017-09-17 11:30 | RADIOLOGY REPORT (SQ) ---
EXAM DESCRIPTION: CHEST SINGLE VIEW COMPLETED DATE/TIME: 09/17/2017 11:02 am REASON FOR STUDY: aspiration PNA condition change COMPARISON: 09/14/2017 NUMBER OF VIEWS: One view. TECHNIQUE: Single frontal radiographic image of the chest acquired. LIMITATIONS: Positioning. FINDINGS: LUNGS AND PLEURA: Small left pleural effusion. Right lung is clear. MEDIASTINUM AND HEART: Stable heart size and mediastinal structures. BONY STRUCTURES: No acute findings. HARDWARE: None. OTHER: No other significant finding. IMPRESSION: Small left pleural effusion. TECHNICAL DOCUMENTATION: JOB ID: [id number] Reading location - IP/workstation name: [email or web address]
[2017-09-17 11:35] LABS: ABSOLUTE BASOPHILS # (AUTO) 0.1 10^3/uL (0.0-0.2); ABSOLUTE EOSINOPHILS # (AUTO) 0.5 10^3/uL (0.0-0.6); ABSOLUTE LYMPHOCYTES (AUTO) 0.7 10^3/uL (0.5-4.7); ABSOLUTE MONOCYTES (AUTO) 0.8 10^3/uL (0.1-1.4); ABSOLUTE NEUT (AUTO) 8.7 10^3/uL (1.7-8.2); BASOPHILS % (AUTO) 0.7 % (0-2); EOSINOPHILS % (AUTO) 4.7 % (0-6); HEMATOCRIT 29.2 % (36.0-47.0); HEMOGLOBIN 9.4 g/dL (12.0-15.5); LYMPHOCYTES % (AUTO) 6.9 % (13-45); MEAN CORPUSCULAR HEMOGLOBIN 26.3 pg (27.0-33.4); MEAN CORPUSCULAR HGB CONC 32.1 g/dL (32.0-36.0); MEAN CORPUSCULAR VOLUME 82 fl (80-97); MONOCYTES % (AUTO) 7.4 % (3-13); PLATELET COUNT 321 10^3/uL (150-450); RED BLOOD COUNT 3.56 10^6/uL (3.72-5.28); RED CELL DISTRIBUTION WIDTH 17.9 % (11.5-14.0); SEGMENTED NEUTROPHILS % (AUTO) 80.3 % (42-78); TOTAL CELLS COUNTED % (AUTO) 100 %; WHITE BLOOD COUNT 10.8 10^3/uL (4.0-10.5)
[2017-09-17] MEDS: METOPROLOL SUCCINATE 50 MG TAB.SR.24H PO SCH (11:45)
[2017-09-17] MEDS: APIXABAN 2.5 MG TABLET GT SCH ×2 (11:46→21:42)
[2017-09-17 11:53] LABS: ALANINE AMINOTRANSFERASE 29 U/L (9-52); ALBUMIN 2.9 g/dL (3.5-5.0); ALKALINE PHOSPHATASE 129 U/L (38-126); ANION GAP 12 (5-19); ASPARTATE AMINO TRANSFERASE 27 U/L (14-36); BILIRUBIN,DIRECT 0.3 mg/dL (0.0-0.4); BILIRUBIN,TOTAL 0.9 mg/dL (0.2-1.3); BLOOD UREA NITROGEN 36 mg/dL (7-20); CALCIUM 9.4 mg/dL (8.4-10.2); CARBON DIOXIDE 25 mmol/L (22-30); CHLORIDE 111 mmol/L (98-107); GLUCOSE 142 mg/dL (75-110); SODIUM 147.5 mmol/L (137-145); TOTAL PROTEIN 6.5 g/dL (6.3-8.2)
[2017-09-17] MEDS ORDERED: PIPERACILLIN SODIUM/TAZOBACTAM 3.375 GM in NORMAL SALINE 100 ML IV SCH (12:00)
[2017-09-17 12:03] LABS: CREATINE KINASE MB 0.73 ng/mL (<4.55); TROPONIN I 0.038 ng/mL
[2017-09-17 12:10] LABS: CREATINE KINASE < 20 U/L (30-135)
--- NOTE | 2017-09-17 13:10 | PDOC PROGRESS REPORT ---
Subjective Progress Note for:: 09/17/17 Subjective:: Patient seen today for follow-up for shortness of breath. Patient is doing well and is started on treatment for Aspiration pneumonia with Unasyn. Patient's white count and neutrophil count is decreased. Patient to have tube feeds restarted we will place nutrition consult. Until the nurse give an order to give Glucerna 2.0- peg 150 mL flushes. 09/16/17 Patient seen today for follow-up. Family at bedside. Informed them that we will cont patient on antibiotic therapy . We will also monitor patient's sodium level. Nutrition seen patient started on Jevity via PEG q. 2 flushes. 09/17/17 pt seen today for f/u. Patient clinical condition seems to have declined on physical exam. Patient is not in respiratory distress however exam reveals wheezing on auscultation . pt is alert and awake and arousable. She shows hypoxia chest x-ray done shows left pleural effusion. Dramatic changes made to include more broad-spectrum coverage. Nephrology on board to help with sodium level. Reason For Visit: PNEUMONIA Physical Exam Vital Signs: Temp Pulse Resp BP Pulse Ox 98.5 F 87 18 133/68 H 96 09/17/17 07:22 09/17/17 07:22 09/17/17 07:22 09/17/17 11:11 09/17/17 08:00 Pulse Oximeter Continuous Start: 09/14/17 19: 28 Freq: RTQ4 Status: Active Document 09/17/17 08:00 [facility] (Rec: 09/17/17 10:26 [facility] [id number]) Pulse Oximetry Assessment Oxygen Saturation (92-100) 96 Oxygen Flow Rate (L/min) 3 Oxygen Delivery Method Nasal Cannula Equipment Usage Equipment in Use Continuous SpO2 Machine # 7 Intake & Output 09/16/17 09/17/17 09/18/17 06:59 06:59 06:59 Intake Total 774 1100 Output Total 1250 1400 Balance -1250 -626 1100 Weight 142 lb 13.753 oz 151 lb 3.794 oz General appearance: PRESENT: no acute distress Head exam: PRESENT: atraumatic, normocephalic Eye exam: PRESENT: EOMI Respiratory exam: PRESENT: rhonchi, wheezes. ABSENT: accessory muscle use, decreased breath sounds, retraction, unlabored Cardiovascular exam: PRESENT: RRR GI/Abdominal exam: PRESENT: normal bowel sounds, soft. ABSENT: tenderness Neurological exam: PRESENT: alert, awake, oriented to person, CN II-XII grossly intact Results Laboratory Results: 09/16/17 13:57 09/17/17 03:30 09/16/17 09/16/17 09/16/17 13:55 13:57 13:57 WBC 15.1 H RBC 3.60 L Hgb 9.4 L Hct 29.8 L MCV 83 MCH 26.1 L MCHC 31.5 L RDW 18.0 H Plt Count 266 Seg Neutrophils % 81.3 H Lymphocytes % 7.1 L Monocytes % 7.5 Eosinophils % 3.3 Basophils % 0.8 Absolute Neutrophils 12.3 H Absolute Lymphocytes 1.1 Absolute Monocytes 1.1 Absolute Eosinophils 0.5 Absolute Basophils 0.1 Carbonic Acid HCO3/H2CO3 Ratio ABG pH ABG pCO2 ABG pO2 ABG HCO3 ABG O2 Saturation ABG Base Excess FiO2 Sodium 147.6 H Potassium 4.8 Chloride 113 H Carbon Dioxide 22 Anion Gap 13 BUN 36 H Creatinine 1.06 Est GFR ( Amer) > 60 Est GFR (Non-Af Amer) 49 L Glucose 97 Serum Osmolality Calcium 10.0 Phosphorus 5.5 H Magnesium 2.3 Total Bilirubin 0.9 AST 39 H ALT 33 Alkaline Phosphatase 137 H Total Protein 7.0 Albumin 3.1 L Urine Osmolality 569 09/16/17 09/17/17 09/17/17 13:57 03:30 10:00 WBC RBC Hgb Hct MCV MCH MCHC RDW Plt Count Seg Neutrophils % Lymphocytes % Monocytes % Eosinophils % Basophils % Absolute Neutrophils Absolute Lymphocytes Absolute Monocytes Absolute Eosinophils Absolute Basophils Carbonic Acid 1.20 HCO3/H2CO3 Ratio 20:1 ABG pH 7.41 ABG pCO2 40.0 ABG pO2 72.4 L ABG HCO3 25.0 ABG O2 Saturation 94.8 ABG Base Excess 0.4 FiO2 2 Sodium 149.5 H Potassium 4.2 Chloride 116 H Carbon Dioxide 22 Anion Gap 12 BUN 39 H Creatinine 1.08 Est GFR ( Amer) 58 L Est GFR (Non-Af Amer) 48 L Glucose 127 H Serum Osmolality 314 H Calcium 9.4 Phosphorus 4.5 Magnesium Total Bilirubin AST ALT Alkaline Phosphatase Total Protein Albumin Urine Osmolality 09/16/17 05:20 NT-Pro-B Natriuret Pep 5190 H Impressions: Head CT 09/14/17 00:00 IMPRESSION: CHRONIC MICROVASCULAR ISCHEMIA. NO ACUTE IMAGING FINDINGS IN THE BRAIN. EVIDENCE OF ACUTE STROKE: NO. Assessment & Plan - Diagnosis (1) Aspiration pneumonia Qualifiers: Aspiration pneumonia type: due to regurgitated food Laterality: unspecified laterality Lung location: unspecified part of lung Qualified Code(s): J69.0 - Pneumonitis due to inhalation of food and vomit Is this a current diagnosis for this admission?: Yes Plan: She was started on IV Unasyn for aspiration pneumonia treatment, however due to clinical decline with worsening clinical findings we will switch patient for more broad-spectrum coverage with vancomycin and Zosyn. Suspect worsening due to restarting tube feeds we will decrease the rate at 25. Chest x-ray shows left-sided pleural effusion, elevated BNP suspect patient may have mild pulmonary congestion we will give patient 1 dose of Lasix and monitor. (2) Atrial fibrillation Qualifiers: Atrial fibrillation type: chronic Qualified Code(s): I48.2 - Chronic atrial fibrillation Is this a current diagnosis for this admission?: Yes Plan: Rate controlled patient continued on anticoagulation. Patient in sinus rhythm. Patient changed to Toprol-XL and continued on her apixaban. (3) Hypertension Qualifiers: Hypertension type: essential hypertension Qualified Code(s): I10 - Essential (primary) hypertension Is this a current diagnosis for this admission?: Yes Plan: Patient to change to Toprol-XL per cardiology. Of note, patient had echocardiogram done on 09/29/2015, which showed normal ventricular Wall thickness size with low normal systolic function. Left atrium is mildly dilated. Moderate pulmonary hypertension by echo. (4) Systolic dysfunction Is this a current diagnosis for this admission?: Yes Plan: Patient has an abnormal BNP with low normal systolic function noted on echocardiogram Done in 2016. We will start diuretic therapy necessary. (5) Hypernatremia Is this a current diagnosis for this admission?: Yes Plan: Being followed by nephrology. Patient sodium level is and has improved.
--- NOTE | 2017-09-17 13:26 | PDOC PROGRESS REPORT ---
Subjective Progress Note for:: 09/17/17 Subjective:: Patient seemed to have deteriorated. She is more lethargic and obtunded. She is also noted to have increased respiratory rate. There is suspicion of aspiration and possible CHF, however she is also noted to have hyponatremia. Blood pressure has also been labile. I did try to discuss CODE STATUS and discussed that patient being elderly has quite debilitated state and multiple medical issues therefore unlikely to do well. Patient however tells me that he is waiting for other family members to come in before making a decision about CODE STATUS. He does understand that the prognosis is likely to be poor especially in the event of cardiac arrest etc. Reason For Visit: PNEUMONIA Physical Exam Vital Signs: Temp Pulse Resp BP Pulse Ox 98.4 F 98 20 133/68 H 96 09/17/17 11:50 09/17/17 11:50 09/17/17 11:50 09/17/17 11:50 09/17/17 11:50 Pulse Oximeter Continuous Start: 09/14/17 19: 28 Freq: RTQ4 Status: Active Document 09/17/17 08:00 [facility] (Rec: 09/17/17 10:26 [facility] [id number]) Pulse Oximetry Assessment Oxygen Saturation (92-100) 96 Oxygen Flow Rate (L/min) 3 Oxygen Delivery Method Nasal Cannula Equipment Usage Equipment in Use Continuous SpO2 Machine # 7 Intake & Output 09/16/17 09/17/17 09/18/17 06:59 06:59 06:59 Intake Total 774 1100 Output Total 1250 1400 Balance -1250 -626 1100 Weight 64.8 kg 68.6 kg Exam: GENERAL: well-nourished and in no acute distress. Patient is lethargic and obtunded.. HEAD: Atraumatic, normocephalic. EYES: Pupils equal round and reactive to light, extraocular movements intact, sclera anicteric, conjunctiva are normal. ENT: TMs normal, nares patent, oropharynx clear without exudates. Moist mucous membranes. No oral ulcerations or bleeding gums noted NECK: supple without lymphadenopathy or JVD. Trachea is central. No cervical or axillary lymphadenopathy noted. Carotids are 2+ LUNGS: Breath sounds bibasilar fine crackles at bases. No significant dullness noted. CHEST: Palpation of chest wall shows no significant chest wall tenderness. 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 ABDOMEN: Soft, no significant tenderness appreciated, normoactive bowel sounds. No guarding, no rebound. No rigidity noted . No masses appreciated. EXTREMITIES: Pedal pulses are 1-2+, no calf tenderness noted, Trace + pedal edema noted. No clubbing or cyanosis. NEUROLOGICAL: Patient is alert but is not able to participate in neurological exam because of patient's current mental status PSYCH: Patient cannot participate in a neurologic and psych exam because of the patient's current mental status SKIN: No significant ecchymosis, rash, ulcerations or signs of pruritus noted. Grade 1 decubiti is noted MUSCULOSKELETAL EXAM: No significant joint swelling noted. Results Laboratory Results: 09/17/17 11:08 09/17/17 11:08 09/16/17 09/16/17 09/16/17 13:55 13:57 13:57 WBC 15.1 H RBC 3.60 L Hgb 9.4 L Hct 29.8 L MCV 83 MCH 26.1 L MCHC 31.5 L RDW 18.0 H Plt Count 266 Seg Neutrophils % 81.3 H Lymphocytes % 7.1 L Monocytes % 7.5 Eosinophils % 3.3 Basophils % 0.8 Absolute Neutrophils 12.3 H Absolute Lymphocytes 1.1 Absolute Monocytes 1.1 Absolute Eosinophils 0.5 Absolute Basophils 0.1 Carbonic Acid HCO3/H2CO3 Ratio ABG pH ABG pCO2 ABG pO2 ABG HCO3 ABG O2 Saturation ABG Base Excess FiO2 Sodium 147.6 H Potassium 4.8 Chloride 113 H Carbon Dioxide 22 Anion Gap 13 BUN 36 H Creatinine 1.06 Est GFR ( Amer) > 60 Est GFR (Non-Af Amer) 49 L Glucose 97 Serum Osmolality Calcium 10.0 Phosphorus 5.5 H Magnesium 2.3 Total Bilirubin 0.9 AST 39 H ALT 33 Alkaline Phosphatase 137 H Total Protein 7.0 Albumin 3.1 L Urine Osmolality 569 09/16/17 09/17/17 09/17/17 13:57 03:30 10:00 WBC RBC Hgb Hct MCV MCH MCHC RDW Plt Count Seg Neutrophils % Lymphocytes % Monocytes % Eosinophils % Basophils % Absolute Neutrophils Absolute Lymphocytes Absolute Monocytes Absolute Eosinophils Absolute Basophils Carbonic Acid 1.20 HCO3/H2CO3 Ratio 20:1 ABG pH 7.41 ABG pCO2 40.0 ABG pO2 72.4 L ABG HCO3 25.0 ABG O2 Saturation 94.8 ABG Base Excess 0.4 FiO2 2 Sodium 149.5 H Potassium 4.2 Chloride 116 H Carbon Dioxide 22 Anion Gap 12 BUN 39 H Creatinine 1.08 Est GFR ( Amer) 58 L Est GFR (Non-Af Amer) 48 L Glucose 127 H Serum Osmolality 314 H Calcium 9.4 Phosphorus 4.5 Magnesium Total Bilirubin AST ALT Alkaline Phosphatase Total Protein Albumin Urine Osmolality 09/17/17 09/17/17 11:08 11:08 WBC 10.8 H RBC 3.56 L Hgb 9.4 L Hct 29.2 L MCV 82 MCH 26.3 L MCHC 32.1 RDW 17.9 H Plt Count 321 Seg Neutrophils % 80.3 H Lymphocytes % 6.9 L Monocytes % 7.4 Eosinophils % 4.7 Basophils % 0.7 Absolute Neutrophils 8.7 H Absolute Lymphocytes 0.7 Absolute Monocytes 0.8 Absolute Eosinophils 0.5 Absolute Basophils 0.1 Carbonic Acid HCO3/H2CO3 Ratio ABG pH ABG pCO2 ABG pO2 ABG HCO3 ABG O2 Saturation ABG Base Excess FiO2 Sodium 147.5 H Potassium 4.0 Chloride 111 H Carbon Dioxide 25 Anion Gap 12 BUN 36 H Creatinine 1.11 Est GFR ( Amer) 57 L Est GFR (Non-Af Amer) 47 L Glucose 142 H Serum Osmolality Calcium 9.4 Phosphorus Magnesium Total Bilirubin 0.9 AST 27 ALT 29 Alkaline Phosphatase 129 H Total Protein 6.5 Albumin 2.9 L Urine Osmolality 09/16/17 09/17/17 09/17/17 05:20 11:08 11:08 Creatine Kinase < 20 L CK-MB (CK-2) 0.73 Troponin I 0.038 NT-Pro-B Natriuret Pep 5190 H 7760 H Impressions: Head CT 09/14/17 00:00 IMPRESSION: CHRONIC MICROVASCULAR ISCHEMIA. NO ACUTE IMAGING FINDINGS IN THE BRAIN. EVIDENCE OF ACUTE STROKE: NO. Chest X-Ray 09/17/17 09:43 IMPRESSION: Small left pleural effusion. Assessment & Plan - Diagnosis (1) Atrial fibrillation Qualifiers: Atrial fibrillation type: chronic Qualified Code(s): I48.2 - Chronic atrial fibrillation Is this a current diagnosis for this admission?: Yes (2) Hypertension Qualifiers: Hypertension type: essential hypertension Qualified Code(s): I10 - Essential (primary) hypertension Is this a current diagnosis for this admission?: Yes (3) History of cerebrovascular accident Is this a current diagnosis for this admission?: Yes (4) Dyspnea Qualifiers: Dyspnea type: dyspnea on exertion Qualified Code(s): R06.09 - Other forms of dyspnea Is this a current diagnosis for this admission?: Yes (5) Pneumonia Qualifiers: Pneumonia type: aspiration pneumonia Aspiration pneumonia type: unspecified Laterality: unspecified laterality Is this a current diagnosis for this admission?: Yes - Notes Notes: Pneumonia: Aspiration. Patient is noted to have worsening respirations. Agree with changing antibiotics. Agree with holding tube feeding. Hypernatremia: Nephrology consulting. Atrial fibrillation: Heart rate is somewhat increased. Currently on metoprolol tartrate for rate control. Will recommend switch to metoprolol succinate for a much smoother action. Continue Eliquis if no bleeding complications but patient at increased risk of bleed due to her age. Hypertension: Blood pressure under reasonable control. Will recommend liberal control at her age. Cerebrovascular accident: Patient has history of CVA, possibly also have underlying dementia causing mental status changes. Patient has elevated white cell count therefore could have underlying infection. Dyspnea: BNP is noted to be elevated. May consider ruling out pulmonary embolism. However patient may not be able to cooperate with such testing therefore empiric continuation of Eliquis may be all just is required. Case discussed with hospitalist. Prognosis is on the poor side. - Time Time with patient: Greater than 35 minutes - CODE STATUS was discussed, patient remains full code. Surrogate decision-maker unchanged. Multiple medical problems were addressed. More than 50% of the time spent coordinating care, discussing management plans with involved caregivers. Management plans discussed with involved personnels. Medical decision making was of moderate to high complexity, patient's has multiple comorbidities. Significant time spent discussing CODE STATUS with patient's son. Patient cannot participate in discussion at this time. Apparently no prior decision was made by the patient. CODE STATUS was discussed, patient remains full code. Surrogate decision-maker unchanged. Multiple medical problems were addressed. More than 50% of the time spent coordinating care, discussing management plans with involved caregivers. Management plans discussed with involved personnels. Medical decision making was of moderate to high complexity, patient's has multiple comorbidities. Medications reviewed and adjusted accordingly: Yes
--- NOTE | 2017-09-17 14:00 | PDOC PROGRESS REPORT ---
Subjective Progress Note for:: 09/17/17 Subjective:: Patient apparently deteriorated clinically so she was transferred here in IMCU today. He was noted to be a little bit more tachypneic and short of breath so currently she is on CPAP. Patient really does not verbalize much complaints. Reason For Visit: PNEUMONIA Physical Exam Vital Signs: Temp Pulse Resp BP Pulse Ox 98.4 F 98 18 133/68 H 94 09/17/17 11:50 09/17/17 11:50 09/17/17 13:22 09/17/17 11:50 09/17/17 13:22 Pulse Oximeter Continuous Start: 09/14/17 19: 28 Freq: RTQ4 Status: Active Document 09/17/17 11:50 [facility] (Rec: 09/17/17 13:23 [facility] [id number]) Pulse Oximetry Assessment Oxygen Saturation (92-100) 93 Oxygen Flow Rate (L/min) 3 Oxygen Delivery Method Nasal Cannula Equipment Usage Equipment in Use Continuous SpO2 Machine # 7 Intake & Output 09/16/17 09/17/17 09/18/17 06:59 06:59 06:59 Intake Total 774 1100 Output Total 1250 1400 Balance -1250 -626 1100 Weight 64.8 kg 68.6 kg Exam: General appearance: PRESENT: Currently on CPAP Head exam: PRESENT: atraumatic, normocephalic Eye exam: PRESENT: conjunctiva pale, PERRLA. ABSENT: scleral icterus Neck exam: ABSENT: JVD Respiratory exam: PRESENT: Diminished breath sounds. ABSENT: crackles, rales, rhonchi, unlabored, wheezes Cardiovascular exam: PRESENT: Irregularly irregular rate rhythm -+S1, +S2. ABSENT: diastolic murmur, systolic murmur GI/Abdominal exam: PRESENT: normal bowel sounds, soft. ABSENT: guarding, mass, tenderness Extremities exam: ABSENT: No edema Neurological exam: PRESENT: Lethargic Skin exam: PRESENT: dry, warm, Results Laboratory Results: 09/17/17 11:08 09/17/17 11:08 09/16/17 09/16/17 09/16/17 13:55 13:57 13:57 WBC 15.1 H RBC 3.60 L Hgb 9.4 L Hct 29.8 L MCV 83 MCH 26.1 L MCHC 31.5 L RDW 18.0 H Plt Count 266 Seg Neutrophils % 81.3 H Lymphocytes % 7.1 L Monocytes % 7.5 Eosinophils % 3.3 Basophils % 0.8 Absolute Neutrophils 12.3 H Absolute Lymphocytes 1.1 Absolute Monocytes 1.1 Absolute Eosinophils 0.5 Absolute Basophils 0.1 Carbonic Acid HCO3/H2CO3 Ratio ABG pH ABG pCO2 ABG pO2 ABG HCO3 ABG O2 Saturation ABG Base Excess FiO2 Sodium 147.6 H Potassium 4.8 Chloride 113 H Carbon Dioxide 22 Anion Gap 13 BUN 36 H Creatinine 1.06 Est GFR ( Amer) > 60 Est GFR (Non-Af Amer) 49 L Glucose 97 Serum Osmolality Calcium 10.0 Phosphorus 5.5 H Magnesium 2.3 Total Bilirubin 0.9 AST 39 H ALT 33 Alkaline Phosphatase 137 H Total Protein 7.0 Albumin 3.1 L Urine Osmolality 569 09/16/17 09/17/17 09/17/17 13:57 03:30 10:00 WBC RBC Hgb Hct MCV MCH MCHC RDW Plt Count Seg Neutrophils % Lymphocytes % Monocytes % Eosinophils % Basophils % Absolute Neutrophils Absolute Lymphocytes Absolute Monocytes Absolute Eosinophils Absolute Basophils Carbonic Acid 1.20 HCO3/H2CO3 Ratio 20:1 ABG pH 7.41 ABG pCO2 40.0 ABG pO2 72.4 L ABG HCO3 25.0 ABG O2 Saturation 94.8 ABG Base Excess 0.4 FiO2 2 Sodium 149.5 H Potassium 4.2 Chloride 116 H Carbon Dioxide 22 Anion Gap 12 BUN 39 H Creatinine 1.08 Est GFR ( Amer) 58 L Est GFR (Non-Af Amer) 48 L Glucose 127 H Serum Osmolality 314 H Calcium 9.4 Phosphorus 4.5 Magnesium Total Bilirubin AST ALT Alkaline Phosphatase Total Protein Albumin Urine Osmolality 09/17/17 09/17/17 11:08 11:08 WBC 10.8 H RBC 3.56 L Hgb 9.4 L Hct 29.2 L MCV 82 MCH 26.3 L MCHC 32.1 RDW 17.9 H Plt Count 321 Seg Neutrophils % 80.3 H Lymphocytes % 6.9 L Monocytes % 7.4 Eosinophils % 4.7 Basophils % 0.7 Absolute Neutrophils 8.7 H Absolute Lymphocytes 0.7 Absolute Monocytes 0.8 Absolute Eosinophils 0.5 Absolute Basophils 0.1 Carbonic Acid HCO3/H2CO3 Ratio ABG pH ABG pCO2 ABG pO2 ABG HCO3 ABG O2 Saturation ABG Base Excess FiO2 Sodium 147.5 H Potassium 4.0 Chloride 111 H Carbon Dioxide 25 Anion Gap 12 BUN 36 H Creatinine 1.11 Est GFR ( Amer) 57 L Est GFR (Non-Af Amer) 47 L Glucose 142 H Serum Osmolality Calcium 9.4 Phosphorus Magnesium Total Bilirubin 0.9 AST 27 ALT 29 Alkaline Phosphatase 129 H Total Protein 6.5 Albumin 2.9 L Urine Osmolality 09/16/17 09/17/17 09/17/17 05:20 11:08 11:08 Creatine Kinase < 20 L CK-MB (CK-2) 0.73 Troponin I 0.038 NT-Pro-B Natriuret Pep 5190 H 7760 H Impressions: Head CT 09/14/17 00:00 IMPRESSION: CHRONIC MICROVASCULAR ISCHEMIA. NO ACUTE IMAGING FINDINGS IN THE BRAIN. EVIDENCE OF ACUTE STROKE: NO. Chest X-Ray 09/17/17 09:43 IMPRESSION: Small left pleural effusion. Assessment & Plan - Diagnosis (1) Hypernatremia Is this a current diagnosis for this admission?: Yes Plan: Is slightly better but still mildly elevated. In view of the respiratory status and mild left pleural effusion will not give any more IV fluids. Continue water flushes with the tube feeding. (2) Hyperphosphatemia Is this a current diagnosis for this admission?: Yes Plan: Resolved. (3) Stage III chronic kidney disease Is this a current diagnosis for this admission?: Yes Plan: Unchanged and stable. (4) Atrial fibrillation Qualifiers: Atrial fibrillation type: chronic Qualified Code(s): I48.2 - Chronic atrial fibrillation Is this a current diagnosis for this admission?: Yes (5) Hypertension Qualifiers: Hypertension type: essential hypertension Qualified Code(s): I10 - Essential (primary) hypertension Is this a current diagnosis for this admission?: Yes (6) Pleural effusion, left Is this a current diagnosis for this admission?: Yes Plan: Mild. (7) Aspiration pneumonia Qualifiers: Aspiration pneumonia type: due to regurgitated food Laterality: unspecified laterality Lung location: unspecified part of lung Qualified Code(s): J69.0 - Pneumonitis due to inhalation of food and vomit Is this a current diagnosis for this admission?: Yes (8) Dyspnea Qualifiers: Dyspnea type: dyspnea on exertion Qualified Code(s): R06.09 - Other forms of dyspnea Is this a current diagnosis for this admission?: Yes Plan: Possibly due to aspiration, a small pleural effusion, and underlying sleep apnea. Defer to primary provider. Agreed with 1 dose of Lasix today. - Time Time with patient: 15-25 minutes
[2017-09-17 14:10] LABS: APPEARANCE,URINE SLIGHTLY-CLOUDY; BILIRUBIN,URINE NEGATIVE (NEGATIVE); COLOR,URINE YELLOW; GLUCOSE, URINE NEGATIVE (NEGATIVE); KETONES,URINE NEGATIVE (NEGATIVE); LEUKOCYTE ESTERASE,URINE NEGATIVE (NEGATIVE); NITRITE,URINE NEGATIVE (NEGATIVE); PROTEIN,URINE NEGATIVE (NEGATIVE); URINE SPECIFIC GRAVITY 1.021; UROBILINOGEN,URINE NEGATIVE mg/dL (<2.0)
[2017-09-17] MEDS ORDERED: LIDOCAINE 1% INJ-PF (10 MG/ML) 30 ML SDV ONE (14:30)
[2017-09-17] MEDS ORDERED: FUROSEMIDE INJ/PF 40 MG/4 ML SDV IV ONE (14:30)
[2017-09-17] MEDS: VANCOMYCIN HCL 1,000 MG in DEXTROSE 5%-WATER 250 ML IV SCH (15:01)
[2017-09-17 15:12] LABS: ANION GAP 12 (5-19); BLOOD UREA NITROGEN 37 mg/dL (7-20); CALCIUM 9.4 mg/dL (8.4-10.2); CARBON DIOXIDE 24 mmol/L (22-30); CHLORIDE 111 mmol/L (98-107); GLUCOSE 144 mg/dL (75-110); POTASSIUM 3.8 mmol/L (3.6-5.0); SODIUM 147.4 mmol/L (137-145)
--- NOTE | 2017-09-17 15:26 | OPERATIVE REPORT E ---
Operative Report NAME: MOHAN ALVARENGA : 1930 AGE: 87Y DATE OF SURGERY: 09/17/2017 ROOM: 318 PREOPERATIVE DIAGNOSIS: POOR PERIPHERAL VEINS FOR INTRAVENOUS ACCESS. POSTOPERATIVE DIAGNOSIS: POOR PERIPHERAL VEINS FOR INTRAVENOUS ACCESS. OPERATION: Placement of right subclavian vein triple lumen catheter. SURGEON: DENILSON QUINN M.D. ANESTHESIA: Local. INDICATION: This is an 87-year-old female with a history of stroke, noted to have poor peripheral veins for IV access, and needed central line. PROCEDURE: The patient was placed in Trendelenburg position and the right upper chest and neck were then prepped and draped in the usual sterile fashion. Local anesthesia infiltrated the right infraclavicular area. The right subclavian vein was then punctured and guidewire passed through the needle to the superior vena cava. Needle was removed and the entrance site dilated and a triple lumen catheter inserted through the guidewire to a distance of about 14 cm. The catheter was then anchored to the skin with 3-0 silk. All the 3 ports were aspirated and I was able to inject saline easily also. A Biopatch was placed at the insertion site and a transparent sterile dressing was then placed over the Biopatch and catheter. Chest x-ray will be obtained for placement. The patient tolerated the procedure well. DICTATING PHYSICIAN: DENILSON QUINN M.D. [id number] PHY#: [id number] ID: [id number] JOB#: [id number] ACCT: [id number] cc:DENILSON QUINN M.D. >
--- NOTE | 2017-09-17 16:28 | RADIOLOGY REPORT (SQ) ---
EXAM DESCRIPTION: CHEST SINGLE VIEW COMPLETED DATE/TIME: 09/17/2017 3:34 pm REASON FOR STUDY: central line placement COMPARISON: 09/17/2017 EXAM PARAMETERS: NUMBER OF VIEWS: One view. TECHNIQUE: Single frontal radiographic view of the chest acquired. RADIATION DOSE: NA LIMITATIONS: Limited field of view. FINDINGS: LUNGS AND PLEURA: Stable pulmonary exam without focal consolidation, pneumothorax. Left l estrelilta base atelectasis. Small pleural effusions. MEDIASTINUM AND HILAR STRUCTURES: No masses. Contour normal. HEART AND VASCULAR STRUCTURES: Heart normal in size. Normal vasculature. BONES: No acute findings. HARDWARE: Interval placement of a right central vascular access catheter which terminates in the ciaran on of the cavoatrial junction. OTHER: No other significant finding. IMPRESSION: Central line placement without evidence of complication. Stable pulmonary exam. TECHNICAL DOCUMENTATION: JOB ID: [id number] [employer]- All Rights Reserved Reading location - IP/workstation name: [email or web address]
[2017-09-17] MEDS ORDERED: PIPERACILLIN/TAZOBACTAM 3.375 GM VIAL IV ONE ×2 (18:58→23:49)
[2017-09-17] MEDS ORDERED: PIPERACILLIN/TAZOBACTAM 3.375 GM VIAL IV PRN (19:15)
[2017-09-17] MEDS ORDERED: PIPERACILLIN SODIUM/TAZOBACTAM 3.375 GM in NORMAL SALINE 100 ML IV ONE ×2 (19:15→19:45)
[2017-09-17] MEDS ORDERED: PANTOPRAZOLE SODIUM 40 MG VIAL IV ONE (19:45)
[2017-09-17] MEDS ORDERED: DEXTROSE 5%-1/4 NORMAL SALINE 1,000 ML IV PRN (19:58)
[2017-09-17 20:40] LABS: CREATINE KINASE MB 0.62 ng/mL (<4.55); TROPONIN I 0.037 ng/mL
--- NOTE | 2017-09-17 21:34 | RADIOLOGY REPORT (SQ) ---
EXAM DESCRIPTION: CT HEAD WITHOUT COMPLETED DATE/TIME: 09/17/2017 8:47 pm REASON FOR STUDY: AMS COMPARISON: 09/14/2017 TECHNIQUE: Axial images acquired through the brain without intravenous contrast. Images reviewed wi th bone, brain and subdural windows. Additional sagittal and coronal reconstructions were generated. Images stored on PACS. All CT scanners at this facility use dose modulation, iterative reconstruction, and/or weight based d osing when appropriate to reduce radiation dose to as low as reasonably achievable (ALARA). [facility]: Dose Right [facility]: CareDose [facility]: Dose Right [facility]: Teradose 4D [facility]: Smart [employer] RADIATION DOSE: CT Rad equipment meets quality standard of care and radiation dose reduction techniq ues were employed. CTDIvol: 53.2 mGy. DLP: 1044 mGy-cm.mGy. LIMITATIONS: None. FINDINGS: VENTRICLES: Prominent. CEREBRUM: No masses. No hemorrhage. No midline shift. Areas of low density in the white matter mos t likely due to chronic micro-vascular ischemic change. No evidence for acute infarction. CEREBELLUM: No masses. No hemorrhage. No alteration of density. No evidence for acute infarction. EXTRAAXIAL SPACES: Age-related involutional change. No fluid collections. No masses. ORBITS AND GLOBE: No intra- or extraconal masses. Normal contour of globe without masses. CALVARIUM: No fracture. PARANASAL SINUSES: No fluid or mucosal thickening. SOFT TISSUES: No mass or hematoma. OTHER: No other significant finding. IMPRESSION: CHRONIC CHANGES OF ATROPHY AND MICROVASCULAR ISCHEMIA. NO ACUTE PROCESS. EVIDENCE OF ACUTE STROKE: NO. TECHNICAL DOCUMENTATION: JOB ID: [id number] Quality ID # [id number]: Final reports with documentation of one or more dose reduction techniques (e.g., Au tomated exposure control, adjustment of the mA and/or kV according to patient size, use of iterative reconstruction technique) 2010 [employer]- All Rights Reserved Reading location - IP/workstation name: [email or web address]
--- NOTE | 2017-09-17 21:46 | RADIOLOGY REPORT (SQ) ---
EXAM DESCRIPTION: CT SOFT TISSUE NECK WITHOUT COMPLETED DATE/TIME: 09/17/2017 8:47 pm REASON FOR STUDY: right neck mass COMPARISON: 08/30/2017 TECHNIQUE: Noncontrast scanning from skull base through lung apices with review of bone, soft tissue and lung windows. Reconstructed coronal and sagittal MPR images reviewed. All images stored on PAC S. All CT scanners at this facility use dose modulation, iterative reconstruction, and/or weight based d osing when appropriate to reduce radiation dose to as low as reasonably achievable (ALARA). [facility]: Dose Right [facility]: CareDose [facility]: Dose Right [facility]: Teradose 4D [facility]: Smart [employer] RADIATION DOSE: CT Rad equipment meets quality standard of care and radiation dose reduction techniq ues were employed. CTDIvol: 11.0 mGy. DLP: 356 mGy-cm. mGy. LIMITATIONS: None. FINDINGS: SKULL BASE: Intact. MAJOR SALIVARY GLANDS: No solid or cystic masses. No inflammatory changes. LYMPHADENOPATHY: No adenopathy. MUCOSAL MASSES OR ASYMMETRY: No mucosal masses or asymmetry. LARYNX/CORDS: No abnormal findings. LUNG APICES: Small pleural effusions. BONES: Intact. THYROID: Unchanged left thyroid nodule. PARANASAL SINUSES: Unchanged mucosal thickening left maxillary sinus. OTHER: Prominent fat over the right infrahyoid neck not significantly changed. Right-sided central l ine in the SVC. IMPRESSION: Lipoma. No signal mass. No significant change. TECHNICAL DOCUMENTATION: JOB ID: [id number] Quality ID # [id number]: Final reports with documentation of one or more dose reduction techniques (e.g., Au tomated exposure control, adjustment of the mA and/or kV according to patient size, use of iterative reconstruction technique) 2010 [employer]- All Rights Reserved Reading location - IP/workstation name: [email or web address]
[2017-09-17] MEDS ORDERED: ATORVASTATIN CALCIUM 40 MG TABLET GT SCH (22:00)
[2017-09-18] MEDS: PIPERACILLIN SODIUM/TAZOBACTAM 3.375 GM in NORMAL SALINE 100 ML IV SCH ×4 (03:36→20:30)
[2017-09-18] MEDS: LANSOPRAZOLE 30 MG TAB.RAP.DR PO SCH ×2 (05:30→16:50)
[2017-09-18] MEDS: METOPROLOL SUCCINATE 50 MG TAB.SR.24H PO SCH (09:42)
[2017-09-18] MEDS: APIXABAN 2.5 MG TABLET GT SCH ×2 (09:42→22:08)
[2017-09-18 09:54] LABS: ARTERIAL BLOOD BASE EXCESS 2.8 mmol/L; ARTERIAL BLOOD H2CO3 1.26 mmol/L (1.05-1.35); ARTERIAL BLOOD HCO3 27.4 mmol/L (20-26); ARTERIAL BLOOD O2 SATURATION 96.8 % (94-98); ARTERIAL BLOOD PH 7.43 (7.35-7.45); ARTERIAL BLOOD PO2 86.4 mmHg (80-100); ARTERIAL BLOOD TOTAL CO2 28.7 mmol/L (21-25)
[2017-09-18 09:55] LABS: ARTERIAL BLOOD FIO2 3.5L
[2017-09-18] MEDS: VANCOMYCIN HCL 1,000 MG in DEXTROSE 5%-WATER 250 ML IV SCH (11:39)
--- NOTE | 2017-09-18 12:13 | RADIOLOGY REPORT (SQ) ---
EXAM DESCRIPTION: CT CHEST WITH COMPLETED DATE/TIME: 09/18/2017 11:15 am REASON FOR STUDY: AMS/ PNEUMONIA COMPARISON: None. TECHNIQUE: CT scan of the chest performed using helical scanning technique with dynamic intravenous contrast injection. Images reviewed with lung, soft tissue and bone windows. Reconstructed coronal and sagittal MPR images reviewed. All images stored on PACS. All CT scanners at this facility use dose modulation, iterative reconstruction, and/or weight based d osing when appropriate to reduce radiation dose to as low as reasonably achievable (ALARA). [facility]: Dose Right [facility]: CareDose [facility]: Dose Right [facility]: Teradose 4D [facility]: [employer] CONTRAST TYPE AND DOSE: contrast/concentration: Isovue 350.00 mg/ml; Total Contrast Delivered: 80.0 ml; Total Saline Delivered: 55.0 ml RENAL FUNCTION: BUN 37 creatinine 1.2 RADIATION DOSE: CT Rad equipment meets quality standard of care and radiation dose reduction techniq ues were employed. CTDIvol: 18.4 mGy. DLP: 665 mGy-cm. . LIMITATIONS: Motion. FINDINGS: LUNGS AND PLEURA: There are trace bilateral pleural effusions. There is segmental airspac e disease in the left lower lobe. HILAR AND MEDIASTINAL STRUCTURES: Small mediastinal nodes measuring up to about 1 cm in short axis. No bulky adenopathy. HEART AND VASCULAR STRUCTURES: No aneurysm or dissection. No central pulmonary emboli. No pericardi al effusion. HARDWARE: None in the chest. UPPER ABDOMEN: No significant findings. Limited exam. THYROID AND OTHER SOFT TISSUES: Substernal left thyroid lobe. BONES: No significant finding. OTHER: Right-sided central line tip SVC. IMPRESSION: Left lower lobe pneumonia. TECHNICAL DOCUMENTATION: JOB ID: [id number] Quality ID # [id number]: Final reports with documentation of one or more dose reduction techniques (e.g., Au tomated exposure control, adjustment of the mA and/or kV according to patient size, use of iterative reconstruction technique) 2010 [email or web address]- All Rights Reserved Reading location - IP/workstation name: [email or web address]
--- NOTE | 2017-09-18 13:07 | PDOC PROGRESS REPORT ---
Subjective Progress Note for:: 09/18/17 Subjective:: Patient seems to be somewhat better and more alert but still very lethargic. CT scan shows evidence of pneumonia. Today again I did try to discuss CODE STATUS and discussed that patient being elderly has quite debilitated state and multiple medical issues therefore unlikely to do well. Patients son however tells me that he is waiting for other family members to come in before making a decision about CODE STATUS. He does understand that the prognosis is likely to be poor especially in the event of cardiac arrest etc. Reason For Visit: PNEUMONIA Physical Exam Vital Signs: Temp Pulse Resp BP Pulse Ox 97.4 F 93 22 H 124/62 98 09/18/17 12:14 09/18/17 12:14 09/18/17 12:14 09/18/17 12:14 09/18/17 12:14 Pulse Oximeter Continuous Start: 09/14/17 19: 28 Freq: RTQ4 Status: Complete Document 09/18/17 09:40 HCR (Rec: 09/18/17 11:43 HCR [id number]) Pulse Oximetry Assessment Equipment Usage Equipment Discontinued Continuous SpO2 Machine # 7 Intake & Output 09/17/17 09/18/17 09/19/17 06:59 06:59 06:59 Intake Total 774 1550 1100 Output Total 1400 1450 Balance -046 183 3878 Weight 68.6 kg 65.1 kg Exam: GENERAL: well-nourished and in no acute distress. Patient is alert but not oriented to place time or person. Patient is somewhat obtunded and somnolent but somewhat better than yesterday HEAD: Atraumatic, normocephalic. EYES: Pupils equal round and reactive to light, extraocular movements intact, sclera anicteric, conjunctiva are normal. ENT: TMs normal, nares patent, oropharynx clear without exudates. Moist mucous membranes. No oral ulcerations or bleeding gums noted NECK: supple without lymphadenopathy or JVD. Trachea is central. No cervical or axillary lymphadenopathy noted. Carotids are 2+ LUNGS: Breath sounds bibasilar fine crackles at bases, left more than right. No significant dullness noted. CHEST: Palpation of chest wall shows no significant chest wall tenderness. HEART: [place] [employer], No PSH, 2/6 KEVYN aortic area, 1/6 [place] systolic murmur mitral area, rubs or gallops. ABDOMEN: Soft, no significant tenderness appreciated, normoactive bowel sounds. No guarding, no rebound. No rigidity noted . No masses appreciated. EXTREMITIES: Pedal pulses are 1-2+, no calf tenderness noted, 1 + pedal edema noted. No clubbing or cyanosis. NEUROLOGICAL: Patient is alert but is not able to participate in neurological exam because of patient's current mental status PSYCH: Patient cannot participate in a neurologic and psych exam because of the patient's current mental status SKIN: No significant ecchymosis, rash, ulcerations or signs of pruritus noted. MUSCULOSKELETAL EXAM: No significant joint swelling noted. Results Laboratory Results: 09/17/17 11:08 09/17/17 11:08 09/17/17 09/17/17 09/17/17 11:08 13:05 19:40 Carbonic Acid HCO3/H2CO3 Ratio ABG pH ABG pCO2 ABG pO2 ABG HCO3 ABG O2 Saturation ABG Base Excess FiO2 Sodium 147.4 H Potassium 3.8 Chloride 111 H Carbon Dioxide 24 Anion Gap 12 BUN 37 H Creatinine 1.15 Est GFR ( Amer) 54 L Est GFR (Non-Af Amer) 45 L Glucose 144 H Calcium 9.4 Ammonia < 8.7 L Urine Color YELLOW Urine Appearance SLIGHTLY-CLOUDY Urine pH 5.0 Ur Specific [place] 1.021 Urine Protein NEGATIVE Urine Glucose (UA) NEGATIVE Urine Ketones NEGATIVE Urine Blood NEGATIVE Urine Nitrite NEGATIVE Ur Leukocyte Esterase NEGATIVE Urine WBC (Auto) 1 Urine RBC (Auto) 0 09/18/17 09:40 Carbonic Acid 1.26 HCO3/H2CO3 Ratio 21:1 ABG pH 7.43 ABG pCO2 42.0 ABG pO2 86.4 ABG HCO3 27.4 H ABG O2 Saturation 96.8 ABG Base Excess 2.8 FiO2 3.5L Sodium Potassium Chloride Carbon Dioxide Anion Gap BUN Creatinine Est GFR ( Amer) Est GFR (Non-Af Amer) Glucose Calcium Ammonia Urine Color Urine Appearance Urine pH Ur Specific [place] Urine Protein Urine Glucose (UA) Urine Ketones Urine Blood Urine Nitrite Ur Leukocyte Esterase Urine WBC (Auto) Urine RBC (Auto) 09/16/17 09/17/17 09/17/17 05:20 11:08 11:08 Creatine Kinase < 20 L CK-MB (CK-2) 0.73 Troponin I 0.038 NT-Pro-B Natriuret Pep 5190 H 7760 H 09/17/17 09/17/17 09/18/17 19:40 19:40 02:54 Creatine Kinase < 20 L Cancelled CK-MB (CK-2) 0.62 Troponin I 0.037 NT-Pro-B Natriuret Pep 09/18/17 02:54 Creatine Kinase CK-MB (CK-2) Cancelled Troponin I Cancelled NT-Pro-B Natriuret Pep EKG Comments: Atrial fibrillation with relatively well controlled heart rate. Impressions: Head CT 09/17/17 00:00 IMPRESSION: CHRONIC CHANGES OF ATROPHY AND MICROVASCULAR ISCHEMIA. NO ACUTE PROCESS. EVIDENCE OF ACUTE STROKE: NO. Soft Tissue Neck CT 09/17/17 00:00 IMPRESSION: Lipoma. No signal mass. No significant change. Chest X-Ray 09/17/17 09:43 IMPRESSION: Small left pleural effusion. Chest CT 09/18/17 00:00 IMPRESSION: Left lower lobe pneumonia. Assessment & Plan - Diagnosis (1) Atrial fibrillation Qualifiers: Atrial fibrillation type: chronic Qualified Code(s): I48.2 - Chronic atrial fibrillation Is this a current diagnosis for this admission?: Yes (2) Hypertension Qualifiers: Hypertension type: essential hypertension Qualified Code(s): I10 - Essential (primary) hypertension Is this a current diagnosis for this admission?: Yes (3) History of cerebrovascular accident Is this a current diagnosis for this admission?: Yes (4) Dyspnea Qualifiers: Dyspnea type: dyspnea on exertion Qualified Code(s): R06.09 - Other forms of dyspnea Is this a current diagnosis for this admission?: Yes (5) Pneumonia Qualifiers: Pneumonia type: aspiration pneumonia Aspiration pneumonia type: unspecified Laterality: unspecified laterality Is this a current diagnosis for this admission?: Yes - Notes Notes: Pneumonia: Aspiration. Agree with changing antibiotics. Agree with holding tube feeding. Hypernatremia: Nephrology consultation note reviewed. Recommend resuming diuretics. Atrial fibrillation: Heart rate is somewhat increased. Continue with metoprolol succinate for a much smoother action. Continue Eliquis if no bleeding complications but patient at increased risk of bleed due to her age. Hypertension: Blood pressure under reasonable control. Will recommend liberal control at her age. Cerebrovascular accident: Patient has history of CVA, possibly also have underlying dementia causing mental status changes. Patient has elevated white cell count therefore could have underlying infection. Dyspnea: BNP is noted to be elevated. Recommend resuming Lasix but following electrolytes and BNP level as well as intermittent chest x-rays. Case discussed with hospitalist. Prognosis is on the poor side. - Time Time with patient: Greater than 35 minutes - CODE STATUS was discussed, patient remains full code. Surrogate decision-maker unchanged. Multiple medical problems were addressed. More than 50% of the time spent coordinating care, discussing management plans with involved caregivers. Management plans discussed with involved personnels. Medical decision making was of moderate to high complexity, patient's has multiple comorbidities. CODE STATUS again discussed. Currently patient's son unable to make a CODE STATUS decision. He is waiting for other family members to come in. Medications reviewed and adjusted accordingly: Yes
[2017-09-18] MEDS: DEXTROSE 5%-1/4 NORMAL SALINE 500 ML IV PRN ×2 (14:56→22:09)
[2017-09-18 18:58] LABS: ABSOLUTE BASOPHILS # (AUTO) 0.1 10^3/uL (0.0-0.2); ABSOLUTE EOSINOPHILS # (AUTO) 0.6 10^3/uL (0.0-0.6); ABSOLUTE LYMPHOCYTES (AUTO) 0.9 10^3/uL (0.5-4.7); ABSOLUTE MONOCYTES (AUTO) 0.9 10^3/uL (0.1-1.4); ABSOLUTE NEUT (AUTO) 7.5 10^3/uL (1.7-8.2); BASOPHILS % (AUTO) 0.9 % (0-2); EOSINOPHILS % (AUTO) 5.6 % (0-6); HEMATOCRIT 25.5 % (36.0-47.0); HEMOGLOBIN 8.4 g/dL (12.0-15.5); LYMPHOCYTES % (AUTO) 9.4 % (13-45); MEAN CORPUSCULAR HEMOGLOBIN 27.1 pg (27.0-33.4); MEAN CORPUSCULAR VOLUME 82 fl (80-97); MONOCYTES % (AUTO) 9.2 % (3-13); PLATELET COUNT 323 10^3/uL (150-450); RED BLOOD COUNT 3.12 10^6/uL (3.72-5.28); RED CELL DISTRIBUTION WIDTH 17.9 % (11.5-14.0); SEGMENTED NEUTROPHILS % (AUTO) 74.9 % (42-78); TOTAL CELLS COUNTED % (AUTO) 100 %
[2017-09-18 19:26] LABS: ALANINE AMINOTRANSFERASE 23 U/L (9-52); ALBUMIN 2.7 g/dL (3.5-5.0); ALKALINE PHOSPHATASE 126 U/L (38-126); ANION GAP 11 (5-19); ASPARTATE AMINO TRANSFERASE 24 U/L (14-36); BILIRUBIN,DIRECT 0.3 mg/dL (0.0-0.4); BILIRUBIN,TOTAL 0.9 mg/dL (0.2-1.3); BLOOD UREA NITROGEN 31 mg/dL (7-20); CALCIUM 8.9 mg/dL (8.4-10.2); CARBON DIOXIDE 25 mmol/L (22-30); CHLORIDE 104 mmol/L (98-107); GLUCOSE 121 mg/dL (75-110); PHOSPHORUS 4.4 mg/dL (2.5-4.5); POTASSIUM 3.8 mmol/L (3.6-5.0); SODIUM 139.8 mmol/L (137-145); TOTAL PROTEIN 6.2 g/dL (6.3-8.2)
--- NOTE | 2017-09-18 21:49 | PDOC PROGRESS REPORT ---
Subjective Progress Note for:: 09/18/17 Subjective:: Patient seen today for follow-up for shortness of breath. Patient is doing well and is started on treatment for Aspiration pneumonia with Unasyn. Patient's white count and neutrophil count is decreased. Patient to have tube feeds restarted we will place nutrition consult. Until the nurse give an order to give Glucerna 2.0- peg 150 mL flushes. 09/16/17 Patient seen today for follow-up. Family at bedside. Informed them that we will cont patient on antibiotic therapy . We will also monitor patient's sodium level. Nutrition seen patient started on Jevity via PEG q. 2 flushes. 09/17/17 pt seen today for f/u. Patient clinical condition seems to have declined on physical exam. Patient is not in respiratory distress however exam reveals wheezing on auscultation . pt is alert and awake and arousable. She shows hypoxia chest x-ray done shows left pleural effusion. Dramatic changes made to include more broad-spectrum coverage. Nephrology on board to help with sodium level. 09/18/17 Patient seen today for follow-up of her pneumonia. Due to abnormal chest x-ray yesterday CT was obtained which shows left lower lobe pneumonia. Patient is continued on broad-spectrum antibiotic coverage. Clinically she is stable. Reason For Visit: PNEUMONIA Physical Exam Vital Signs: Temp Pulse Resp BP Pulse Ox 97.4 F 94 16 134/79 H 100 09/18/17 12:14 09/18/17 19:00 09/18/17 16:03 09/18/17 16:03 09/18/17 16:03 Pulse Oximeter Continuous Start: 09/14/17 19: 28 Freq: RTQ4 Status: Complete Document 09/18/17 09:40 HCR (Rec: 09/18/17 11:43 HCR [id number]) Pulse Oximetry Assessment Equipment Usage Equipment Discontinued Continuous SpO2 Machine # 7 Intake & Output 09/17/17 09/18/17 09/19/17 06:59 06:59 06:59 Intake Total 774 1550 1550 Output Total 1400 1450 525 Balance -810 392 8401 Weight 151 lb 3.794 oz 143 lb 8.335 oz General appearance: PRESENT: no acute distress, cooperative, obese Head exam: PRESENT: atraumatic, normocephalic Eye exam: PRESENT: EOMI Respiratory exam: PRESENT: crackles Cardiovascular exam: PRESENT: RRR GI/Abdominal exam: PRESENT: normal bowel sounds, soft. ABSENT: distended, guarding, tenderness Neurological exam: PRESENT: alert, altered, awake, oriented to place, oriented to time, CN II-XII grossly intact Results Laboratory Results: 09/18/17 18:50 09/18/17 18:50 09/18/17 09/18/17 09/18/17 09:40 18:50 18:50 WBC 10.0 RBC 3.12 L Hgb 8.4 L Hct 25.5 L MCV 82 MCH 27.1 MCHC 33.0 RDW 17.9 H Plt Count 323 Seg Neutrophils % 74.9 Lymphocytes % 9.4 L Monocytes % 9.2 Eosinophils % 5.6 Basophils % 0.9 Absolute Neutrophils 7.5 Absolute Lymphocytes 0.9 Absolute Monocytes 0.9 Absolute Eosinophils 0.6 Absolute Basophils 0.1 Carbonic Acid 1.26 HCO3/H2CO3 Ratio 21:1 ABG pH 7.43 ABG pCO2 42.0 ABG pO2 86.4 ABG HCO3 27.4 H ABG O2 Saturation 96.8 ABG Base Excess 2.8 FiO2 3.5L Sodium 139.8 Potassium 3.8 Chloride 104 Carbon Dioxide 25 Anion Gap 11 BUN 31 H Creatinine 1.16 Est GFR ( Amer) 54 L Est GFR (Non-Af Amer) 44 L Glucose 121 H Calcium 8.9 Phosphorus 4.4 Magnesium 1.7 Total Bilirubin 0.9 AST 24 ALT 23 Alkaline Phosphatase 126 Total Protein 6.2 L Albumin 2.7 L 09/16/17 09/17/17 09/17/17 05:20 11:08 11:08 Creatine Kinase < 20 L CK-MB (CK-2) 0.73 Troponin I 0.038 NT-Pro-B Natriuret Pep 5190 H 7760 H 09/17/17 09/17/17 09/18/17 19:40 19:40 02:54 Creatine Kinase < 20 L Cancelled CK-MB (CK-2) 0.62 Troponin I 0.037 NT-Pro-B Natriuret Pep 09/18/17 02:54 Creatine Kinase CK-MB (CK-2) Cancelled Troponin I Cancelled NT-Pro-B Natriuret Pep Impressions: Head CT 09/17/17 00:00 IMPRESSION: CHRONIC CHANGES OF ATROPHY AND MICROVASCULAR ISCHEMIA. NO ACUTE PROCESS. EVIDENCE OF ACUTE STROKE: NO. Soft Tissue Neck CT 09/17/17 00:00 IMPRESSION: Lipoma. No signal mass. No significant change. Chest X-Ray 09/17/17 09:43 IMPRESSION: Small left pleural effusion. Chest CT 09/18/17 00:00 IMPRESSION: Left lower lobe pneumonia. Assessment & Plan - Diagnosis (1) Aspiration pneumonia Qualifiers: Aspiration pneumonia type: due to regurgitated food Laterality: unspecified laterality Lung location: unspecified part of lung Qualified Code(s): J69.0 - Pneumonitis due to inhalation of food and vomit Is this a current diagnosis for this admission?: Yes Plan: She was started on IV Unasyn for aspiration pneumonia treatment, however due to clinical decline with worsening clinical findings we will switch patient for more broad-spectrum coverage with vancomycin and Zosyn. Suspect worsening due to restarting tube feeds we will decrease the rate at 25. Chest x-ray shows left-sided pleural effusion, elevated BNP suspect patient may have mild pulmonary congestion we will give patient 1 dose of Lasix and monitor. (2) Atrial fibrillation Qualifiers: Atrial fibrillation type: chronic Qualified Code(s): I48.2 - Chronic atrial fibrillation Is this a current diagnosis for this admission?: Yes Plan: Rate controlled patient continued on anticoagulation. Patient in sinus rhythm. Patient changed to Toprol-XL and continued on her apixaban. (3) Hypertension Qualifiers: Hypertension type: essential hypertension Qualified Code(s): I10 - Essential (primary) hypertension Is this a current diagnosis for this admission?: Yes Plan: Patient to change to Toprol-XL per cardiology. Of note, patient had echocardiogram done on 09/29/2015, which showed normal ventricular Wall thickness size with low normal systolic function. Left atrium is mildly dilated. Moderate pulmonary hypertension by echo. (4) Systolic dysfunction Is this a current diagnosis for this admission?: Yes Plan: Patient has an abnormal BNP with low normal systolic function noted on echocardiogram Done in 2015. We will start diuretic therapy necessary. (5) Hypernatremia Is this a current diagnosis for this admission?: Yes
[2017-09-19] MEDS: PIPERACILLIN SODIUM/TAZOBACTAM 3.375 GM in NORMAL SALINE 100 ML IV SCH ×4 (02:51→20:36)
[2017-09-19] MEDS: LANSOPRAZOLE 30 MG TAB.RAP.DR PO SCH ×2 (05:13→18:35)
[2017-09-19] MEDS: DEXTROSE 5%-1/4 NORMAL SALINE 500 ML IV PRN ×3 (05:45→22:45)
[2017-09-19] MEDS: METOPROLOL SUCCINATE 50 MG TAB.SR.24H PO SCH (10:11)
[2017-09-19] MEDS: APIXABAN 2.5 MG TABLET GT SCH ×2 (10:11→21:17)
[2017-09-19] MEDS: VANCOMYCIN HCL 1,000 MG in DEXTROSE 5%-WATER 250 ML IV SCH (13:47)
[2017-09-19 17:10] LABS: HEMATOCRIT 24.9 % (36.0-47.0); HEMOGLOBIN 8.1 g/dL (12.0-15.5); MEAN CORPUSCULAR HEMOGLOBIN 26.4 pg (27.0-33.4); MEAN CORPUSCULAR HGB CONC 32.6 g/dL (32.0-36.0); MEAN CORPUSCULAR VOLUME 81 fl (80-97); PLATELET COUNT 318 10^3/uL (150-450); RED BLOOD COUNT 3.07 10^6/uL (3.72-5.28); RED CELL DISTRIBUTION WIDTH 18.1 % (11.5-14.0); WHITE BLOOD COUNT 9.5 10^3/uL (4.0-10.5)
[2017-09-19 17:13] LABS: ARTERIAL BLOOD BASE EXCESS 0.7 mmol/L; ARTERIAL BLOOD H2CO3 1.31 mmol/L (1.05-1.35); ARTERIAL BLOOD HCO3 25.8 mmol/L (20-26); ARTERIAL BLOOD O2 SATURATION 96.7 % (94-98); ARTERIAL BLOOD PCO2 43.6 mmHg (35-45); ARTERIAL BLOOD PH 7.39 (7.35-7.45); ARTERIAL BLOOD PO2 89.6 mmHg (80-100); ARTERIAL BLOOD TOTAL CO2 27.1 mmol/L (21-25)
[2017-09-19 17:14] LABS: ARTERIAL BLOOD FIO2 3.5
[2017-09-19 17:39] LABS: ALANINE AMINOTRANSFERASE 20 U/L (9-52); ALBUMIN 2.6 g/dL (3.5-5.0); ALKALINE PHOSPHATASE 111 U/L (38-126); ANION GAP 10 (5-19); ASPARTATE AMINO TRANSFERASE 21 U/L (14-36); BILIRUBIN,DIRECT 0.3 mg/dL (0.0-0.4); BILIRUBIN,TOTAL 0.9 mg/dL (0.2-1.3); BLOOD UREA NITROGEN 22 mg/dL (7-20); CALCIUM 9.1 mg/dL (8.4-10.2); CARBON DIOXIDE 24 mmol/L (22-30); CHLORIDE 103 mmol/L (98-107); GLUCOSE 108 mg/dL (75-110); PHOSPHORUS 4.1 mg/dL (2.5-4.5); POTASSIUM 3.6 mmol/L (3.6-5.0); SODIUM 137.4 mmol/L (137-145); TOTAL PROTEIN 6.1 g/dL (6.3-8.2)
--- NOTE | 2017-09-19 18:40 | PDOC PROGRESS REPORT ---
Subjective Progress Note for:: 09/19/17 Subjective:: Patient noted to be somewhat more alert than before. Patient seems to be somewhat better and more alert but still very lethargic. CT scan shows evidence of pneumonia. Patient remains short of breath with intermittent increased respiratory rate. Telemetry strips shows patient maintaining atrial fibrillation but with controlled heart rate response. Reason For Visit: PNEUMONIA Physical Exam Vital Signs: Temp Pulse Resp BP Pulse Ox 97.7 F 89 24 H 129/115 H 95 09/19/17 12:00 09/19/17 15:34 09/19/17 15:34 09/19/17 15:34 09/19/17 16:28 Pulse Oximeter Continuous Start: 09/14/17 19: 28 Freq: RTQ4 Status: Complete Document 09/18/17 09:40 HCR (Rec: 09/18/17 11:43 HCR [id number]) Pulse Oximetry Assessment Equipment Usage Equipment Discontinued Continuous SpO2 Machine # 7 Intake & Output 09/18/17 09/19/17 09/20/17 06:59 06:59 06:59 Intake Total 1550 2650 950 Output Total 1450 875 600 Balance 100 1775 350 Weight 65.1 kg 65.9 kg Exam: GENERAL: well-nourished and in no acute distress. Patient is alert but not oriented to place time or person. HEAD: Atraumatic, normocephalic. EYES: Pupils equal round and reactive to light, extraocular movements intact, sclera anicteric, conjunctiva are normal. ENT: TMs normal, nares patent, oropharynx clear without exudates. Moist mucous membranes. No oral ulcerations or bleeding gums noted NECK: supple without lymphadenopathy or JVD. Trachea is central. No cervical or axillary lymphadenopathy noted. Carotids are 2+ LUNGS: Breath sounds bibasilar fine crackles at bases. No significant dullness noted. CHEST: Palpation of chest wall shows no significant chest wall tenderness. HEART: [employer], No PSH, 2/6 KEVYN aortic area, 1/6 [place] systolic murmur mitral area, rubs or gallops. ABDOMEN: Soft, no significant tenderness appreciated, normoactive bowel sounds. No guarding, no rebound. No rigidity noted . No masses appreciated. EXTREMITIES: Pedal pulses are 1-2+, no calf tenderness noted, 1 + pedal edema noted. No clubbing or cyanosis. NEUROLOGICAL: Patient is alert but is not able to participate in neurological exam because of patient's current mental status PSYCH: Patient cannot participate in a neurologic and psych exam because of the patient's current mental status SKIN: No significant ecchymosis, rash, ulcerations or signs of pruritus noted. MUSCULOSKELETAL EXAM: No significant joint swelling noted. Results Laboratory Results: 09/19/17 16:45 09/19/17 16:45 09/18/17 09/18/17 09/19/17 18:50 18:50 16:45 WBC 10.0 9.5 RBC 3.12 L 3.07 L Hgb 8.4 L 8.1 L Hct 25.5 L 24.9 L MCV 82 81 MCH 27.1 26.4 L MCHC 33.0 32.6 RDW 17.9 H 18.1 H Plt Count 323 318 Seg Neutrophils % 74.9 Lymphocytes % 9.4 L Monocytes % 9.2 Eosinophils % 5.6 Basophils % 0.9 Absolute Neutrophils 7.5 Absolute Lymphocytes 0.9 Absolute Monocytes 0.9 Absolute Eosinophils 0.6 Absolute Basophils 0.1 Carbonic Acid HCO3/H2CO3 Ratio ABG pH ABG pCO2 ABG pO2 ABG HCO3 ABG O2 Saturation ABG Base Excess FiO2 Sodium 139.8 Potassium 3.8 Chloride 104 Carbon Dioxide 25 Anion Gap 11 BUN 31 H Creatinine 1.16 Est GFR ( Amer) 54 L Est GFR (Non-Af Amer) 44 L Glucose 121 H Calcium 8.9 Phosphorus 4.4 Magnesium 1.7 Total Bilirubin 0.9 AST 24 ALT 23 Alkaline Phosphatase 126 Total Protein 6.2 L Albumin 2.7 L 09/19/17 09/19/17 16:45 16:50 WBC RBC Hgb Hct MCV MCH MCHC RDW Plt Count Seg Neutrophils % Lymphocytes % Monocytes % Eosinophils % Basophils % Absolute Neutrophils Absolute Lymphocytes Absolute Monocytes Absolute Eosinophils Absolute Basophils Carbonic Acid 1.31 HCO3/H2CO3 Ratio 19:1 ABG pH 7.39 ABG pCO2 43.6 ABG pO2 89.6 ABG HCO3 25.8 ABG O2 Saturation 96.7 ABG Base Excess 0.7 FiO2 3.5 Sodium 137.4 Potassium 3.6 Chloride 103 Carbon Dioxide 24 Anion Gap 10 BUN 22 H Creatinine 1.14 Est GFR ( Amer) 55 L Est GFR (Non-Af Amer) 45 L Glucose 108 Calcium 9.1 Phosphorus 4.1 Magnesium 1.8 Total Bilirubin 0.9 AST 21 ALT 20 Alkaline Phosphatase 111 Total Protein 6.1 L Albumin 2.6 L 09/16/17 09/17/17 09/17/17 05:20 11:08 11:08 Creatine Kinase < 20 L CK-MB (CK-2) 0.73 Troponin I 0.038 NT-Pro-B Natriuret Pep 5190 H 7760 H 09/17/17 09/17/17 09/18/17 19:40 19:40 02:54 Creatine Kinase < 20 L Cancelled CK-MB (CK-2) 0.62 Troponin I 0.037 NT-Pro-B Natriuret Pep 09/18/17 02:54 Creatine Kinase CK-MB (CK-2) Cancelled Troponin I Cancelled NT-Pro-B Natriuret Pep EKG Comments: Telemetry shows atrial fibrillation however with controlled ventricular response. Impressions: Head CT 09/17/17 00:00 IMPRESSION: CHRONIC CHANGES OF ATROPHY AND MICROVASCULAR ISCHEMIA. NO ACUTE PROCESS. EVIDENCE OF ACUTE STROKE: NO. Soft Tissue Neck CT 09/17/17 00:00 IMPRESSION: Lipoma. No signal mass. No significant change. Chest X-Ray 09/17/17 09:43 IMPRESSION: Small left pleural effusion. Chest CT 09/18/17 00:00 IMPRESSION: Left lower lobe pneumonia. Assessment & Plan - Diagnosis (1) Atrial fibrillation Qualifiers: Atrial fibrillation type: chronic Qualified Code(s): I48.2 - Chronic atrial fibrillation Is this a current diagnosis for this admission?: Yes (2) Hypertension Qualifiers: Hypertension type: essential hypertension Qualified Code(s): I10 - Essential (primary) hypertension Is this a current diagnosis for this admission?: Yes (3) History of cerebrovascular accident Is this a current diagnosis for this admission?: Yes (4) Dyspnea Qualifiers: Dyspnea type: dyspnea on exertion Qualified Code(s): R06.09 - Other forms of dyspnea Is this a current diagnosis for this admission?: Yes (5) Pneumonia Qualifiers: Pneumonia type: aspiration pneumonia Aspiration pneumonia type: unspecified Laterality: unspecified laterality Is this a current diagnosis for this admission?: Yes (6) CHF (congestive heart failure) Qualifiers: Heart failure type: combined systolic and diastolic Heart failure chronicity: acute on chronic Qualified Code(s): I50.43 - Acute on chronic combined systolic (congestive) and diastolic (congestive) heart failure Is this a current diagnosis for this admission?: Yes - Notes Notes: Pneumonia: Aspiration. Agree with changing antibiotics. CHF: Most likely combined systolic and diastolic heart failure, acute on chronic , precipitated by pneumonia. Agree with starting diuretic therapy. Hypernatremia: Nephrology consultation note reviewed. Recommend resuming diuretics. Atrial fibrillation: Heart rate is somewhat increased. Continue with metoprolol succinate for a much smoother action. Continue Eliquis if no bleeding complications but patient at increased risk of bleed due to her age. Hypertension: Blood pressure under reasonable control. Will recommend liberal control at her age. Cerebrovascular accident: Patient has history of CVA, possibly also have underlying dementia causing mental status changes. Patient has elevated white cell count therefore could have underlying infection. Dyspnea: BNP is noted to be elevated. Recommend resuming Lasix but following electrolytes and BNP level as well as intermittent chest x-rays. Case discussed with hospitalist. Prognosis is on the poor side. Will continue to follow patient. - Time Time with patient: Greater than 35 minutes - CODE STATUS was discussed, patient remains full code. Surrogate decision-maker unchanged. Multiple medical problems were addressed. More than 50% of the time spent coordinating care, discussing management plans with involved caregivers. Management plans discussed with involved personnels. Medical decision making was of moderate to high complexity, patient's has multiple comorbidities. Medications reviewed and adjusted accordingly: Yes
[2017-09-19] MEDS ORDERED: GLYCOPYRROLATE INJ 0.4 MG/2 ML VIAL IV ONE (20:00)
--- NOTE | 2017-09-19 22:38 | PDOC PROGRESS REPORT ---
Subjective Progress Note for:: 09/19/17 Subjective:: Patient seen today for follow-up for shortness of breath. Patient is doing well and is started on treatment for Aspiration pneumonia with Unasyn. Patient's white count and neutrophil count is decreased. Patient to have tube feeds restarted we will place nutrition consult. Until the nurse give an order to give Glucerna 2.0- peg 150 mL flushes. 09/16/17 Patient seen today for follow-up. Family at bedside. Informed them that we will cont patient on antibiotic therapy . We will also monitor patient's sodium level. Nutrition seen patient started on Jevity via PEG q. 2 flushes. 09/17/17 pt seen today for f/u. Patient clinical condition seems to have declined on physical exam. Patient is not in respiratory distress however exam reveals wheezing on auscultation . pt is alert and awake and arousable. She shows hypoxia chest x-ray done shows left pleural effusion. Dramatic changes made to include more broad-spectrum coverage. Nephrology on board to help with sodium level. 09/18/17 see sepaarate note. 09/19/17 Patient seen today for follow-up of her pneumonia. Due to abnormal chest x-ray yesterday CT was obtained which shows left lower lobe pneumonia. Patient is continued on broad-spectrum antibiotic coverage. Clinically she is stable, however her prognosis is guarded due to her age recent history of stroke , recent pneumonia and infection, but especially the multiple comorbidities which includes the A. fib heart failure chronic kidney disease. Due to patient's poor response to treatment will request pulmonary consult. Reason For Visit: PNEUMONIA Physical Exam Vital Signs: Temp Pulse Resp BP Pulse Ox 97.9 F 62 22 H 113/58 L 99 09/19/17 19:40 09/19/17 19:40 09/19/17 19:40 09/19/17 19:40 09/19/17 19:40 Pulse Oximeter Continuous Start: 09/14/17 19: 28 Freq: RTQ4 Status: Complete Document 09/18/17 09:40 HCR (Rec: 09/18/17 11:43 HCR [email or web address]) Pulse Oximetry Assessment Equipment Usage Equipment Discontinued Continuous SpO2 Machine # 7 Intake & Output 09/18/17 09/19/17 09/20/17 06:59 06:59 06:59 Intake Total 1550 2650 950 Output Total 1450 875 600 Balance 100 1775 350 Weight 143 lb 8.335 oz 145 lb 4.554 oz General appearance: PRESENT: no acute distress, cooperative Head exam: PRESENT: atraumatic, normocephalic Eye exam: PRESENT: EOMI Ear exam: PRESENT: normal external ear exam Respiratory exam: PRESENT: crackles, wheezes. ABSENT: accessory muscle use Cardiovascular exam: PRESENT: irregular rhythm Neurological exam: PRESENT: awake - Patient is arousable and answers questions although somnolent patient goes right back to sleep after waking up. Focused psych exam: PRESENT: restlessness Results Laboratory Results: 09/19/17 16:45 09/19/17 16:45 09/19/17 09/19/17 09/19/17 16:45 16:45 16:50 WBC 9.5 RBC 3.07 L Hgb 8.1 L Hct 24.9 L MCV 81 MCH 26.4 L MCHC 32.6 RDW 18.1 H Plt Count 318 Carbonic Acid 1.31 HCO3/H2CO3 Ratio 19:1 ABG pH 7.39 ABG pCO2 43.6 ABG pO2 89.6 ABG HCO3 25.8 ABG O2 Saturation 96.7 ABG Base Excess 0.7 FiO2 3.5 Sodium 137.4 Potassium 3.6 Chloride 103 Carbon Dioxide 24 Anion Gap 10 BUN 22 H Creatinine 1.14 Est GFR ( Amer) 55 L Est GFR (Non-Af Amer) 45 L Glucose 108 Calcium 9.1 Phosphorus 4.1 Magnesium 1.8 Total Bilirubin 0.9 AST 21 ALT 20 Alkaline Phosphatase 111 Total Protein 6.1 L Albumin 2.6 L 09/16/17 09/17/17 09/17/17 05:20 11:08 11:08 Creatine Kinase < 20 L CK-MB (CK-2) 0.73 Troponin I 0.038 NT-Pro-B Natriuret Pep 5190 H 7760 H 09/17/17 09/17/17 09/18/17 19:40 19:40 02:54 Creatine Kinase < 20 L Cancelled CK-MB (CK-2) 0.62 Troponin I 0.037 NT-Pro-B Natriuret Pep 09/18/17 02:54 Creatine Kinase CK-MB (CK-2) Cancelled Troponin I Cancelled NT-Pro-B Natriuret Pep Impressions: Head CT 09/17/17 00:00 IMPRESSION: CHRONIC CHANGES OF ATROPHY AND MICROVASCULAR ISCHEMIA. NO ACUTE PROCESS. EVIDENCE OF ACUTE STROKE: NO. Soft Tissue Neck CT 09/17/17 00:00 IMPRESSION: Lipoma. No signal mass. No significant change. Chest X-Ray 09/17/17 09:43 IMPRESSION: Small left pleural effusion. Chest CT 09/18/17 00:00 IMPRESSION: Left lower lobe pneumonia. Assessment & Plan - Diagnosis (1) Aspiration pneumonia Qualifiers: Aspiration pneumonia type: due to regurgitated food Laterality: unspecified laterality Lung location: unspecified part of lung Qualified Code(s): J69.0 - Pneumonitis due to inhalation of food and vomit Is this a current diagnosis for this admission?: Yes Plan: She was started on IV Unasyn for aspiration pneumonia treatment, however due to clinical decline with worsening clinical findings we will switch patient for more broad-spectrum coverage with vancomycin and Zosyn. Suspect worsening due to restarting tube feeds we will decrease the rate at 10. Chest x-ray shows left-sided pleural effusion, elevated BNP suspect patient may have mild pulmonary congestion we will give patient 1 dose of Lasix and monitor. (2) Atrial fibrillation Qualifiers: Atrial fibrillation type: chronic Qualified Code(s): I48.2 - Chronic atrial fibrillation Is this a current diagnosis for this admission?: Yes Plan: Rate controlled patient continued on anticoagulation. Patient in sinus rhythm. Patient changed to Toprol-XL and continued on her apixaban. (3) Hypertension Qualifiers: Hypertension type: essential hypertension Qualified Code(s): I10 - Essential (primary) hypertension Is this a current diagnosis for this admission?: Yes Plan: Patient to change to Toprol-XL per cardiology. Of note, patient had echocardiogram done on 09/29/2015, which showed normal ventricular Wall thickness size with low normal systolic function. Left atrium is mildly dilated. Moderate pulmonary hypertension by echo. (4) Systolic dysfunction Is this a current diagnosis for this admission?: Yes Plan: Patient has an abnormal BNP with low normal systolic function noted on echocardiogram Done in 2016. We will start diuretic therapy as necessary. (5) Hypernatremia Is this a current diagnosis for this admission?: Yes Plan: Being followed by nephrology. Patient sodium level is and has improved.
[2017-09-19] MEDS ORDERED: FUROSEMIDE 20 MG TABLET PEG ONE (23:00)
[2017-09-20 00:22] LABS: CREATINE KINASE MB 0.57 ng/mL (<4.55); TROPONIN I 0.026 ng/mL
[2017-09-20] MEDS: PIPERACILLIN SODIUM/TAZOBACTAM 3.375 GM in NORMAL SALINE 100 ML IV SCH ×4 (02:28→20:23)
[2017-09-20] MEDS: LANSOPRAZOLE 30 MG TAB.RAP.DR PO SCH ×2 (05:33→17:30)
[2017-09-20] MEDS: FUROSEMIDE 20 MG TABLET PEG SCH ×2 (05:48→14:37)
[2017-09-20 06:00] LABS: MEAN CORPUSCULAR HGB CONC 33.1 g/dL (32.0-36.0); MEAN CORPUSCULAR VOLUME 82 fl (80-97); PLATELET COUNT 299 10^3/uL (150-450); RED BLOOD COUNT 2.95 10^6/uL (3.72-5.28); RED CELL DISTRIBUTION WIDTH 17.9 % (11.5-14.0); WHITE BLOOD COUNT 8.4 10^3/uL (4.0-10.5)
[2017-09-20 06:11] LABS: HEMOGLOBIN 7.9 g/dL (12.0-15.5)
[2017-09-20 06:14] LABS: ALANINE AMINOTRANSFERASE 21 U/L (9-52); ALBUMIN 2.4 g/dL (3.5-5.0); ALKALINE PHOSPHATASE 110 U/L (38-126); ANION GAP 12 (5-19); ASPARTATE AMINO TRANSFERASE 19 U/L (14-36); BILIRUBIN,DIRECT 0.3 mg/dL (0.0-0.4); BILIRUBIN,TOTAL 0.8 mg/dL (0.2-1.3); BLOOD UREA NITROGEN 19 mg/dL (7-20); CARBON DIOXIDE 25 mmol/L (22-30); CHLORIDE 107 mmol/L (98-107); GLUCOSE 94 mg/dL (75-110); POTASSIUM 3.4 mmol/L (3.6-5.0); SODIUM 143.6 mmol/L (137-145); TOTAL PROTEIN 5.9 g/dL (6.3-8.2)
[2017-09-20 06:17] LABS: CREATINE KINASE < 20 U/L (30-135)
[2017-09-20 06:23] LABS: ARTERIAL BLOOD BASE EXCESS -1.8 mmol/L; ARTERIAL BLOOD H2CO3 1.27 mmol/L (1.05-1.35); ARTERIAL BLOOD HCO3 23.5 mmol/L (20-26); ARTERIAL BLOOD O2 SATURATION 97.7 % (94-98); ARTERIAL BLOOD PCO2 42.2 mmHg (35-45); ARTERIAL BLOOD PH 7.36 (7.35-7.45); ARTERIAL BLOOD PO2 105.6 mmHg (80-100); ARTERIAL BLOOD TOTAL CO2 24.8 mmol/L (21-25)
[2017-09-20 06:24] LABS: ARTERIAL BLOOD FIO2 36%
[2017-09-20] MEDS: DEXTROSE 5%-1/4 NORMAL SALINE 500 ML IV PRN (06:37)
[2017-09-20 08:02] LABS: CREATINE KINASE MB 0.66 ng/mL (<4.55); TROPONIN I 0.028 ng/mL
[2017-09-20] MEDS ORDERED: FUROSEMIDE INJ/PF 20 MG/2 ML SDV IV ONE (08:15)
[2017-09-20] MEDS: METOPROLOL SUCCINATE 50 MG TAB.SR.24H PO SCH (11:35)
[2017-09-20] MEDS: APIXABAN 2.5 MG TABLET GT SCH ×2 (11:36→22:16)
[2017-09-20] MEDS: VANCOMYCIN HCL 1,000 MG in DEXTROSE 5%-WATER 250 ML IV SCH (12:14)
[2017-09-20 12:51] LABS: VANCOMYCIN,TROUGH 19.8 ug/mL (5.0-20.0)
[2017-09-20] MEDS ORDERED: DEXTROSE 5%-1/4 NORMAL SALINE 500 ML IV PRN (13:07)
--- NOTE | 2017-09-20 14:16 | RADIOLOGY REPORT (SQ) ---
EXAM DESCRIPTION: CHEST SINGLE VIEW COMPLETED DATE/TIME: 09/20/2017 2:03 pm REASON FOR STUDY: rule out chf, f/u pna, worsening resp failure COMPARISON: 09/17/2017 NUMBER OF VIEWS: One view. TECHNIQUE: Single frontal radiographic image of the chest acquired. LIMITATIONS: None. FINDINGS: LUNGS AND PLEURA: Left lower lobe airspace disease not significantly changed. No evidence of superimposed edema. MEDIASTINUM AND HEART: Stable heart size and mediastinal structures. SUPPORT DEVICES: Appropriate location without change. BONY STRUCTURES: No acute findings. HARDWARE: None. OTHER: No other significant finding. IMPRESSION: No significant change. Reading location - IP/workstation name: [email or web address]
[2017-09-20 15:44] LABS: CREATINE KINASE MB 0.64 ng/mL (<4.55); TROPONIN I 0.023 ng/mL
--- NOTE | 2017-09-20 19:00 | PDOC PROGRESS REPORT ---
Subjective Progress Note for:: 09/20/17 Subjective:: The patient is resting in her bed. She currently is wearing BiPAP. She seems to be alert but does not appear to be oriented. A review of systems could not be obtained. I did speak at length to both of her sons regarding goals of care. At this point we have change the patient's CODE STATUS to a DO NOT RESUSCITATE. They do want us to do what we can to try to turn this around but they do understand that her prognosis is quite guarded at this point. We will have further discussions tomorrow. Reason For Visit: PNEUMONIA Physical Exam Vital Signs: Temp Pulse Resp BP Pulse Ox 97.5 F 78 22 H 145/80 H 94 09/20/17 15:46 09/20/17 15:46 09/20/17 15:46 09/20/17 15:46 09/20/17 13:58 Pulse Oximeter Continuous Start: 09/14/17 19: 28 Freq: RTQ4 Status: Complete Document 09/18/17 09:40 HCR (Rec: 09/18/17 11:43 HCR [email or web address]) Pulse Oximetry Assessment Equipment Usage Equipment Discontinued Continuous SpO2 Machine # 7 Intake & Output 09/19/17 09/20/17 09/21/17 06:59 06:59 06:59 Intake Total 2650 2150 1250 Output Total 875 1490 Balance 9448 507 5184 Weight 65.9 kg 66.8 kg General appearance: PRESENT: other - She is chronically ill-appearing and wearing BiPAP Head exam: PRESENT: atraumatic, normocephalic Mouth exam: PRESENT: other - I could not examine her oral mucosa because she has her mask in place Respiratory exam: PRESENT: accessory muscle use, rhonchi - She has scattered coarse rhonchi anteriorly Cardiovascular exam: PRESENT: RRR. ABSENT: diastolic murmur, rubs, systolic murmur Pulses: PRESENT: normal dorsalis pedis pul Vascular exam: PRESENT: normal capillary refill GI/Abdominal exam: PRESENT: normal bowel sounds, soft. ABSENT: distended, guarding, mass, organolmegaly, rebound, tenderness Rectal exam: PRESENT: deferred Extremities exam: PRESENT: full ROM. ABSENT: calf tenderness, clubbing, pedal edema Neurological exam: PRESENT: awake, other - I could not assess for orientation Psychiatric exam: ABSENT: agitated Skin exam: PRESENT: dry, intact, warm. ABSENT: cyanosis, rash Results Laboratory Results: 09/20/17 05:40 09/20/17 05:40 09/20/17 09/20/17 09/20/17 05:40 05:40 06:00 WBC 8.4 RBC 2.95 L Hgb 7.9 L Hct 24.0 L MCV 82 MCH 27.0 MCHC 33.1 RDW 17.9 H Plt Count 299 Carbonic Acid 1.27 HCO3/H2CO3 Ratio 18:1 ABG pH 7.36 ABG pCO2 42.2 ABG pO2 105.6 H ABG HCO3 23.5 ABG O2 Saturation 97.7 ABG Base Excess -1.8 FiO2 36% Sodium 143.6 Potassium 3.4 L Chloride 107 Carbon Dioxide 25 Anion Gap 12 BUN 19 Creatinine 1.20 Est GFR ( Amer) 52 L Est GFR (Non-Af Amer) 43 L Glucose 94 Calcium 9.0 Phosphorus 4.0 Magnesium 1.8 Total Bilirubin 0.8 AST 19 ALT 21 Alkaline Phosphatase 110 Total Protein 5.9 L Albumin 2.4 L Blood Type Antibody Screen 09/20/17 07:12 WBC RBC Hgb Hct MCV MCH MCHC RDW Plt Count Carbonic Acid HCO3/H2CO3 Ratio ABG pH ABG pCO2 ABG pO2 ABG HCO3 ABG O2 Saturation ABG Base Excess FiO2 Sodium Potassium Chloride Carbon Dioxide Anion Gap BUN Creatinine Est GFR ( Amer) Est GFR (Non-Af Amer) Glucose Calcium Phosphorus Magnesium Total Bilirubin AST ALT Alkaline Phosphatase Total Protein Albumin Blood Type A POSITIVE Antibody Screen NEGATIVE 09/17/17 13:05 Catheterized Urine Urine Culture - Final Pseudomonas Aeruginosa 09/16/17 09/17/17 09/17/17 05:20 11:08 11:08 Creatine Kinase < 20 L CK-MB (CK-2) 0.73 Troponin I 0.038 NT-Pro-B Natriuret Pep 5190 H 7760 H 09/17/17 09/17/17 09/18/17 19:40 19:40 02:54 Creatine Kinase < 20 L Cancelled CK-MB (CK-2) 0.62 Troponin I 0.037 NT-Pro-B Natriuret Pep 09/18/17 09/19/17 09/19/17 02:54 22:50 22:50 Creatine Kinase < 20 L CK-MB (CK-2) Cancelled 0.57 Troponin I Cancelled 0.026 NT-Pro-B Natriuret Pep 9210 H 09/20/17 09/20/17 09/20/17 05:40 07:12 14:40 Creatine Kinase < 20 L < 20 L CK-MB (CK-2) 0.66 Troponin I 0.028 NT-Pro-B Natriuret Pep 09/20/17 14:40 Creatine Kinase CK-MB (CK-2) 0.64 Troponin I 0.023 NT-Pro-B Natriuret Pep Impressions: Head CT 09/17/17 00:00 IMPRESSION: CHRONIC CHANGES OF ATROPHY AND MICROVASCULAR ISCHEMIA. NO ACUTE PROCESS. EVIDENCE OF ACUTE STROKE: NO. Soft Tissue Neck CT 09/17/17 00:00 IMPRESSION: Lipoma. No signal mass. No significant change. Chest CT 09/18/17 00:00 IMPRESSION: Left lower lobe pneumonia. Chest X-Ray 09/20/17 00:00 IMPRESSION: No significant change. Assessment & Plan - Diagnosis (1) Acute respiratory failure with hypoxemia Is this a current diagnosis for this admission?: Yes Plan: She intermittently is using BiPAP. She seems to be worse today. Were going to get a chest x-ray and BNP. She will continue treatment for pneumonia. Continue breathing treatments and oxygen support as needed. (2) Aspiration pneumonia Is this a current diagnosis for this admission?: Yes Plan: Concerns are for gram negatives and anaerobes. Although MRSA cannot be ruled out as well. Continue broad-spectrum IV antibiotics with IV vancomycin and Zosyn. (3) Acute on chronic combined systolic and diastolic CHF (congestive heart failure) Is this a current diagnosis for this admission?: Yes Plan: She had been started on p.o. Lasix. I did give her 20 mg of IV Lasix today. We will recheck a BNP in the morning. (4) Acute encephalopathy Is this a current diagnosis for this admission?: Yes Plan: Multifactorial secondary to her underlying infectious issues as well as hypoxia. She seems to still be somewhat confused at the time of my visit. (5) UTI (urinary tract infection) Is this a current diagnosis for this admission?: Yes Plan: She has Pseudomonas growing in her urine. She should be adequately covered with IV Zosyn (6) Chronic atrial fibrillation Is this a current diagnosis for this admission?: Yes Plan: Currently rate controlled. (7) Recent cerebrovascular accident (CVA) Is this a current diagnosis for this admission?: Yes Plan: With significant dysphasia. She has a PEG tube in place. Certainly she has gone significantly downhill since this event. (8) Dysphagia Is this a current diagnosis for this admission?: Yes Plan: She is PEG tube dependent. In spite of this she has developed a significant aspiration pneumonia. (9) Anemia Is this a current diagnosis for this admission?: Yes Plan: She has had a precipitous drop in hemoglobin that is likely due to hemodilution. She is receiving blood today. (10) Hyponatremia Is this a current diagnosis for this admission?: Yes Plan: The patient will have a chemistry panel drawn in the morning (11) Hypokalemia Is this a current diagnosis for this admission?: Yes Plan: This will be repleted and she will have a level drawn in the morning. (12) Do not resuscitate Is this a current diagnosis for this admission?: Yes Plan: Initially the patient was a full code. I had a long discussion regarding goals of care with the patient's sons today. They have changed her CODE STATUS to DO NOT RESUSCITATE. - Time Time Spent with patient: 25-34 minutes - Inpatient Certification Medical Necessity: Need For IV Fluids, Need for IV Antibiotics, Other - Inpatient hospitalization remains necessary. Patient's prognosis is quite guarded. I spent quite some time discussing goals of care with the patient's family today. They would like to try to see what we can do with medications and fluids at this point. They are aware that her life expectancy is likely short. If she does not improve over the next day or 2 further discussions need to be had as they might consider a transition to comfort measures.
--- NOTE | 2017-09-20 19:55 | PDOC PROGRESS REPORT ---
Subjective Progress Note for:: 09/20/17 Subjective:: Patient noted to be somewhat more alert than before. Currently wearing bilevel therapy for respiratory distress. Patient's both sons are in the room. CODE STATUS discussed and currently patient is DNR. Patient seems to be somewhat better and more alert but still weak but answers simple questions and did not seem fully oriented. Telemetry strips shows patient maintaining atrial fibrillation but with controlled heart rate response. Reason For Visit: PNEUMONIA Physical Exam Vital Signs: Temp Pulse Resp BP Pulse Ox 97.5 F 78 22 H 145/80 H 95 09/20/17 15:46 09/20/17 15:46 09/20/17 15:46 09/20/17 15:46 09/20/17 16:16 Pulse Oximeter Continuous Start: 09/14/17 19: 28 Freq: RTQ4 Status: Complete Document 09/18/17 09:40 HCR (Rec: 09/18/17 11:43 HCR [email or web address]) Pulse Oximetry Assessment Equipment Usage Equipment Discontinued Continuous SpO2 Machine # 7 Intake & Output 09/19/17 09/20/17 09/21/17 06:59 06:59 06:59 Intake Total 2650 2150 1250 Output Total 875 1490 2425 Balance 1775 660 -1175 Weight 65.9 kg 66.8 kg Exam: GENERAL: well-nourished and in no acute distress. Patient is alert but not oriented to place time or person. HEAD: Atraumatic, normocephalic. EYES: Pupils equal round and reactive to light, extraocular movements intact, sclera anicteric, conjunctiva are normal. ENT: TMs normal, nares patent, oropharynx clear without exudates. Moist mucous membranes. No oral ulcerations or bleeding gums noted NECK: supple without lymphadenopathy or JVD. Trachea is central. No cervical or axillary lymphadenopathy noted. Carotids are 2+ LUNGS: Breath sounds bibasilar fine crackles at bases. No significant dullness noted. CHEST: Palpation of chest wall shows no significant chest wall tenderness. HEART: [employer], No PSH, 2/6 KEVYN aortic area, 1/6 [place] systolic murmur mitral area, rubs or gallops. ABDOMEN: Soft, no significant tenderness appreciated, normoactive bowel sounds. No guarding, no rebound. No rigidity noted . No masses appreciated. EXTREMITIES: Pedal pulses are 1-2+, no calf tenderness noted, Trace + pedal edema noted. No clubbing or cyanosis. NEUROLOGICAL: Patient is alert but is not able to participate in neurological exam because of patient's current mental status PSYCH: Patient cannot participate in a neurologic and psych exam because of the patient's current mental status SKIN: No significant ecchymosis, rash, ulcerations or signs of pruritus noted. Stage I decubiti noted in the sacrum MUSCULOSKELETAL EXAM: No significant joint swelling noted. . Results Laboratory Results: 09/20/17 05:40 09/20/17 05:40 09/20/17 09/20/17 09/20/17 05:40 05:40 06:00 WBC 8.4 RBC 2.95 L Hgb 7.9 L Hct 24.0 L MCV 82 MCH 27.0 MCHC 33.1 RDW 17.9 H Plt Count 299 Carbonic Acid 1.27 HCO3/H2CO3 Ratio 18:1 ABG pH 7.36 ABG pCO2 42.2 ABG pO2 105.6 H ABG HCO3 23.5 ABG O2 Saturation 97.7 ABG Base Excess -1.8 FiO2 36% Sodium 143.6 Potassium 3.4 L Chloride 107 Carbon Dioxide 25 Anion Gap 12 BUN 19 Creatinine 1.20 Est GFR ( Amer) 52 L Est GFR (Non-Af Amer) 43 L Glucose 94 Calcium 9.0 Phosphorus 4.0 Magnesium 1.8 Total Bilirubin 0.8 AST 19 ALT 21 Alkaline Phosphatase 110 Total Protein 5.9 L Albumin 2.4 L Blood Type Antibody Screen 09/20/17 07:12 WBC RBC Hgb Hct MCV MCH MCHC RDW Plt Count Carbonic Acid HCO3/H2CO3 Ratio ABG pH ABG pCO2 ABG pO2 ABG HCO3 ABG O2 Saturation ABG Base Excess FiO2 Sodium Potassium Chloride Carbon Dioxide Anion Gap BUN Creatinine Est GFR ( Amer) Est GFR (Non-Af Amer) Glucose Calcium Phosphorus Magnesium Total Bilirubin AST ALT Alkaline Phosphatase Total Protein Albumin Blood Type A POSITIVE Antibody Screen NEGATIVE 09/17/17 13:05 Catheterized Urine Urine Culture - Final Pseudomonas Aeruginosa 09/16/17 09/17/17 09/17/17 05:20 11:08 11:08 Creatine Kinase < 20 L CK-MB (CK-2) 0.73 Troponin I 0.038 NT-Pro-B Natriuret Pep 5190 H 7760 H 09/17/17 09/17/17 09/18/17 19:40 19:40 02:54 Creatine Kinase < 20 L Cancelled CK-MB (CK-2) 0.62 Troponin I 0.037 NT-Pro-B Natriuret Pep 09/18/17 09/19/17 09/19/17 02:54 22:50 22:50 Creatine Kinase < 20 L CK-MB (CK-2) Cancelled 0.57 Troponin I Cancelled 0.026 NT-Pro-B Natriuret Pep 9210 H 09/20/17 09/20/17 09/20/17 05:40 07:12 14:40 Creatine Kinase < 20 L < 20 L CK-MB (CK-2) 0.66 Troponin I 0.028 NT-Pro-B Natriuret Pep 09/20/17 14:40 Creatine Kinase CK-MB (CK-2) 0.64 Troponin I 0.023 NT-Pro-B Natriuret Pep EKG Comments: Telemetry shows atrial fibrillation with controlled ventricular response. Impressions: Head CT 09/17/17 00:00 IMPRESSION: CHRONIC CHANGES OF ATROPHY AND MICROVASCULAR ISCHEMIA. NO ACUTE PROCESS. EVIDENCE OF ACUTE STROKE: NO. Soft Tissue Neck CT 09/17/17 00:00 IMPRESSION: Lipoma. No signal mass. No significant change. Chest CT 09/18/17 00:00 IMPRESSION: Left lower lobe pneumonia. Chest X-Ray 09/20/17 00:00 IMPRESSION: No significant change. Assessment & Plan - Diagnosis (1) Atrial fibrillation Qualifiers: Atrial fibrillation type: chronic Qualified Code(s): I48.2 - Chronic atrial fibrillation Is this a current diagnosis for this admission?: Yes (2) Hypertension Qualifiers: Hypertension type: essential hypertension Qualified Code(s): I10 - Essential (primary) hypertension Is this a current diagnosis for this admission?: Yes (3) History of cerebrovascular accident Is this a current diagnosis for this admission?: Yes (4) Dyspnea Qualifiers: Dyspnea type: dyspnea on exertion Qualified Code(s): R06.09 - Other forms of dyspnea Is this a current diagnosis for this admission?: Yes (5) Pneumonia Qualifiers: Pneumonia type: aspiration pneumonia Aspiration pneumonia type: unspecified Laterality: unspecified laterality Is this a current diagnosis for this admission?: Yes (6) CHF (congestive heart failure) Qualifiers: Heart failure type: combined systolic and diastolic Heart failure chronicity: acute on chronic Qualified Code(s): I50.43 - Acute on chronic combined systolic (congestive) and diastolic (congestive) heart failure Is this a current diagnosis for this admission?: Yes - Notes Notes: Pneumonia: Aspiration. Continue with antibiotic therapy. Patient generally improving. May need a swallowing evaluation. CHF: Most likely combined systolic and diastolic heart failure, acute on chronic , precipitated by pneumonia. Continue with diuretic therapy. Hypernatremia: This seems to have resolved. Follow electrolytes closely.. Atrial fibrillation: Heart rate is well controlled. Continue with metoprolol succinate for a much smoother action. Continue Eliquis if no bleeding complications but patient at increased risk of bleed due to her age. Hypertension: Blood pressure under reasonable control. Will recommend liberal control at her age. Cerebrovascular accident: Patient has history of CVA, possibly also have underlying dementia causing mental status changes. Patient has elevated white cell count therefore could have underlying infection. Dyspnea: BNP is noted to be elevated. Recommend resuming Lasix but following electrolytes and BNP level as well as intermittent chest x-rays. Case discussed with hospitalist. Prognosis is on the poor side. Patient today was made a DNR. Will continue to follow patient. - Time Time with patient: 15-25 minutes - CODE STATUS : was discussed, patient remains DO NOT RESUSCITATE. Surrogate decision-maker unchanged. Multiple medical problems were addressed. More than 50% of the time spent coordinating care, discussing management plans with involved caregivers. Management plans discussed with involved personnels. Medical decision making was of moderate to high complexity, patient's has multiple comorbidities. Medications reviewed and adjusted accordingly: Yes
[2017-09-20] MEDS: DEXTROSE 5%-1/4 NORMAL SALINE 1,000 ML IV PRN (22:17)
[2017-09-20 23:47] LABS: ANION GAP 13 (5-19); BLOOD UREA NITROGEN 18 mg/dL (7-20); CARBON DIOXIDE 26 mmol/L (22-30); CHLORIDE 107 mmol/L (98-107); GLUCOSE 98 mg/dL (75-110)
[2017-09-21] MEDS: FUROSEMIDE 20 MG TABLET PEG SCH ×4 (00:10→22:15)
[2017-09-21] MEDS: POTASSIUM CHLORIDE 20 MEQ/50 ML RTU IV SCH ×2 (00:43→04:08)
[2017-09-21] MEDS ORDERED: POTASSIUM CHLORIDE 20 MEQ/15 ML UDCUP PEG ONE (00:45)
[2017-09-21] MEDS: PIPERACILLIN SODIUM/TAZOBACTAM 3.375 GM in NORMAL SALINE 100 ML IV SCH ×4 (03:04→20:34)
[2017-09-21] MEDS: LANSOPRAZOLE 30 MG TAB.RAP.DR PO SCH ×2 (05:44→17:35)
[2017-09-21 06:25] LABS: ABSOLUTE BASOPHILS # (AUTO) 0.1 10^3/uL (0.0-0.2); ABSOLUTE EOSINOPHILS # (AUTO) 0.4 10^3/uL (0.0-0.6); ABSOLUTE LYMPHOCYTES (AUTO) 1.1 10^3/uL (0.5-4.7); ABSOLUTE MONOCYTES (AUTO) 0.9 10^3/uL (0.1-1.4); EOSINOPHILS % (AUTO) 4.6 % (0-6); HEMATOCRIT 30.2 % (36.0-47.0); LYMPHOCYTES % (AUTO) 11.9 % (13-45); MEAN CORPUSCULAR HEMOGLOBIN 27.5 pg (27.0-33.4); MEAN CORPUSCULAR HGB CONC 33.3 g/dL (32.0-36.0); MEAN CORPUSCULAR VOLUME 83 fl (80-97); MONOCYTES % (AUTO) 9.4 % (3-13); PLATELET COUNT 372 10^3/uL (150-450); RED BLOOD COUNT 3.65 10^6/uL (3.72-5.28); RED CELL DISTRIBUTION WIDTH 17.9 % (11.5-14.0); SEGMENTED NEUTROPHILS % (AUTO) 73.1 % (42-78); TOTAL CELLS COUNTED % (AUTO) 100 %; WHITE BLOOD COUNT 9.5 10^3/uL (4.0-10.5)
[2017-09-21 06:38] LABS: ANION GAP 12 (5-19); BLOOD UREA NITROGEN 16 mg/dL (7-20); CALCIUM 9.2 mg/dL (8.4-10.2); CARBON DIOXIDE 24 mmol/L (22-30); CHLORIDE 110 mmol/L (98-107); GLUCOSE 95 mg/dL (75-110); SODIUM 146.3 mmol/L (137-145)
[2017-09-21 06:41] LABS: POTASSIUM 4.2 mmol/L (3.6-5.0)
[2017-09-21 06:52] LABS: HEMOGLOBIN 10.1 g/dL (12.0-15.5)
[2017-09-21] MEDS: VANCOMYCIN HCL INJ 500 MG VIAL PEG SCH ×4 (09:30→23:55)
[2017-09-21] MEDS: METOPROLOL SUCCINATE 50 MG TAB.SR.24H PO SCH (09:44)
[2017-09-21] MEDS: APIXABAN 2.5 MG TABLET GT SCH ×2 (09:44→22:15)
[2017-09-21] MEDS: VANCOMYCIN HCL 750 MG in DEXTROSE 5%-WATER 250 ML IV SCH (12:21)
[2017-09-21] MEDS: DEXTROSE 5%-1/4 NORMAL SALINE 1,000 ML IV PRN (14:53)
--- NOTE | 2017-09-21 15:42 | PDOC PROGRESS REPORT ---
Subjective Subjective:: The patient is an 87-year-old female who presented to the emergency room from [facility]. At the time of admission the patient was somewhat somnolent and tachypneic. The patient was recently discharged from our facility in August 2017 after suffering a CVA. She had a PEG tube placed at that time and had been receiving tube feedings. In the emergency room she was found to have evidence of pneumonia thought to be secondary to aspiration. She was admitted to the hospital. Her respiratory status is been quite slow to improve in spite of aggressive treatment. Yesterday the patient was still being maintained on BiPAP and was only minimally responsive. I had a long talk with the patient's family regarding goals of care. They changed her CODE STATUS to a DO NOT RESUSCITATE. They wanted us to do what we could with look medications to see if we can get her better. Yesterday I gave her a one-time dose of IV Lasix which really seems to have helped her respiratory status. Today the patient is off of her BiPAP. She is awake and much more alert. She still is a little bit confused but answers questions fairly appropriately. She is able to tell me that she feels weak and tired. She is not having any pain. That was about as much of the review of systems that I can get out of the patient today. I did discuss at length with the family and at this point we are going to reinitiate her tube feedings and see how she does over the next couple of days. Ultimately they would like for her to go back to her skilled facility. If she should worsen clinically they were receptive to a possible transition to a comfort driven approach. Reason For Visit: PNEUMONIA Physical Exam Vital Signs: Temp Pulse Resp BP Pulse Ox 97.4 F 106 H 22 H 149/82 H 100 09/21/17 08:37 09/21/17 08:37 09/21/17 08:37 09/21/17 08:37 09/21/17 08:37 Pulse Oximeter Continuous Start: 09/14/17 19: 28 Freq: RTQ4 Status: Complete Document 09/18/17 09:40 HCR (Rec: 09/18/17 11:43 HCR [id number]) Pulse Oximetry Assessment Equipment Usage Equipment Discontinued Continuous SpO2 Machine # 7 Intake & Output 09/20/17 09/21/17 09/22/17 06:59 06:59 06:59 Intake Total 2150 1808 1378 Output Total 1490 3000 Balance 660 -1192 1378 Weight 66.8 kg 66.4 kg General appearance: PRESENT: other - The patient is awake alert and oriented 2. She still is somewhat confused but much improved since yesterday. She is off of her BiPAP Head exam: PRESENT: atraumatic, normocephalic Ear exam: PRESENT: normal external ear exam Mouth exam: PRESENT: moist, tongue midline Respiratory exam: PRESENT: rhonchi - She has some scattered coarse rhonchi. She is diminished in the lower bases bilaterally. ABSENT: rales, wheezes Cardiovascular exam: PRESENT: irregular rhythm - The patient is rate controlled GI/Abdominal exam: PRESENT: normal bowel sounds, soft. ABSENT: distended, guarding, mass, organolmegaly, rebound, tenderness Rectal exam: PRESENT: deferred Extremities exam: PRESENT: full ROM. ABSENT: calf tenderness, clubbing, pedal edema Neurological exam: PRESENT: alert, awake, oriented to person, oriented to place. ABSENT: oriented to time, oriented to situation Psychiatric exam: PRESENT: appropriate affect, normal mood. ABSENT: homicidal ideation, suicidal ideation Skin exam: PRESENT: dry, intact, warm. ABSENT: cyanosis, rash Results Laboratory Results: 09/21/17 05:40 09/21/17 05:40 09/20/17 09/21/17 09/21/17 23:10 03:51 05:40 WBC 9.5 RBC 3.65 L Hgb 10.1 L D Hct 30.2 L MCV 83 MCH 27.5 MCHC 33.3 RDW 17.9 H Plt Count 372 Seg Neutrophils % 73.1 Lymphocytes % 11.9 L Monocytes % 9.4 Eosinophils % 4.6 Basophils % 1.0 Absolute Neutrophils 7.0 Absolute Lymphocytes 1.1 Absolute Monocytes 0.9 Absolute Eosinophils 0.4 Absolute Basophils 0.1 Sodium 146.0 H Potassium 3.0 L* Chloride 107 Carbon Dioxide 26 Anion Gap 13 BUN 18 Creatinine 1.19 Est GFR ( Amer) 52 L Est GFR (Non-Af Amer) 43 L Glucose 98 Calcium 9.0 Magnesium Stool Occult Blood NEGATIVE 09/21/17 05:40 WBC RBC Hgb Hct MCV MCH MCHC RDW Plt Count Seg Neutrophils % Lymphocytes % Monocytes % Eosinophils % Basophils % Absolute Neutrophils Absolute Lymphocytes Absolute Monocytes Absolute Eosinophils Absolute Basophils Sodium 146.3 H Potassium 4.2 D Chloride 110 H Carbon Dioxide 24 Anion Gap 12 BUN 16 Creatinine 1.22 Est GFR ( Amer) 51 L Est GFR (Non-Af Amer) 42 L Glucose 95 Calcium 9.2 Magnesium 1.8 Stool Occult Blood 09/17/17 13:05 Catheterized Urine Urine Culture - Final Pseudomonas Aeruginosa 09/16/17 09/17/17 09/17/17 05:20 11:08 11:08 Creatine Kinase < 20 L CK-MB (CK-2) 0.73 Troponin I 0.038 NT-Pro-B Natriuret Pep 5190 H 7760 H 09/17/17 09/17/17 09/18/17 19:40 19:40 02:54 Creatine Kinase < 20 L Cancelled CK-MB (CK-2) 0.62 Troponin I 0.037 NT-Pro-B Natriuret Pep 09/18/17 09/19/17 09/19/17 02:54 22:50 22:50 Creatine Kinase < 20 L CK-MB (CK-2) Cancelled 0.57 Troponin I Cancelled 0.026 NT-Pro-B Natriuret Pep 9210 H 09/20/17 09/20/17 09/20/17 05:40 07:12 14:40 Creatine Kinase < 20 L < 20 L CK-MB (CK-2) 0.66 Troponin I 0.028 NT-Pro-B Natriuret Pep 09/20/17 09/20/17 14:40 20:15 Creatine Kinase CK-MB (CK-2) 0.64 Troponin I 0.023 NT-Pro-B Natriuret Pep 6900 H Impressions: Head CT 09/17/17 00:00 IMPRESSION: CHRONIC CHANGES OF ATROPHY AND MICROVASCULAR ISCHEMIA. NO ACUTE PROCESS. EVIDENCE OF ACUTE STROKE: NO. Soft Tissue Neck CT 09/17/17 00:00 IMPRESSION: Lipoma. No signal mass. No significant change. Chest CT 09/18/17 00:00 IMPRESSION: Left lower lobe pneumonia. Chest X-Ray 09/20/17 00:00 IMPRESSION: No significant change. Assessment & Plan - Diagnosis (1) Acute respiratory failure with hypoxemia Is this a current diagnosis for this admission?: Yes Plan: Today the patient has been weaned off of her BiPAP. Currently requiring 3.5 L of oxygen. She was not oxygen dependent prior to this hospitalization. Her respiratory failure is multifactorial secondary to underlying pneumonia (2) Aspiration pneumonia Is this a current diagnosis for this admission?: Yes Plan: Concerns are for gram negatives and anaerobes. Although MRSA cannot be ruled out as well. Continue broad-spectrum IV antibiotics with IV vancomycin and Zosyn. (3) Acute on chronic combined systolic and diastolic CHF (congestive heart failure) Is this a current diagnosis for this admission?: Yes Plan: She had been started on p.o. Lasix. I did give her 20 mg of IV Lasix yesterday. We will recheck a BNP in the morning. (4) Acute encephalopathy Is this a current diagnosis for this admission?: Yes Plan: Multifactorial secondary to her underlying infectious issues as well as hypoxia. She seems to still be somewhat confused at the time of my visit however this is improved since yesterday. (5) UTI (urinary tract infection) Is this a current diagnosis for this admission?: Yes Plan: She has Pseudomonas growing in her urine. She should be adequately covered with IV Zosyn (6) Chronic atrial fibrillation Is this a current diagnosis for this admission?: Yes Plan: Currently rate controlled. (7) Recent cerebrovascular accident (CVA) Is this a current diagnosis for this admission?: Yes Plan: With significant dysphasia. She has a PEG tube in place. I have spoken to dietary today about reinitiating her tube feedings at a low rate and then slowly advancing. (8) Dysphagia Is this a current diagnosis for this admission?: Yes Plan: She is PEG tube dependent. In spite of this she has developed a significant aspiration pneumonia. We are going to slowly reinitiate her tube feedings. (9) Anemia Is this a current diagnosis for this admission?: Yes Plan: She has had a precipitous drop in hemoglobin that is likely due to hemodilution. She did receive a unit of blood yesterday. (10) Hyponatremia Is this a current diagnosis for this admission?: Yes Plan: The patient will have a chemistry panel drawn in the morning (11) Hypokalemia Is this a current diagnosis for this admission?: Yes Plan: Repleted and resolved (12) Do not resuscitate Is this a current diagnosis for this admission?: Yes - Time Time Spent with patient: 25-34 minutes - Inpatient Certification Medical Necessity: Need for Nebulizer Therapy and Monitoring of Response - Inpatient hospitalization remains necessary. The patient is doing somewhat better today. Overall her whole prognosis is somewhat guarded however the family is cautiously optimistic that she is going to improve. Ultimately she will go back to her [facility] facility at discharge. We are going to reinitiate her tube feedings today and see how she does over the next couple of days., Need for IV Antibiotics, Other
--- NOTE | 2017-09-21 19:39 | PDOC PROGRESS REPORT ---
Subjective Progress Note for:: 09/21/17 Subjective:: Patient noted to be somewhat more alert than before. Respiration seems much improved. Currently she is wearing oxygen by nasal cannula. Patient's both sons are in the room. CODE STATUS discussed and currently patient is DNR. Patient answers simple questions and did not seem fully oriented. Patient on tube feeding. Telemetry strips shows patient maintaining atrial fibrillation but with controlled heart rate response. Reason For Visit: PNEUMONIA Physical Exam Vital Signs: Temp Pulse Resp BP Pulse Ox 97.5 F 74 16 136/83 H 100 09/21/17 17:29 09/21/17 19:00 09/21/17 17:29 09/21/17 17:29 09/21/17 17:29 Pulse Oximeter Continuous Start: 09/14/17 19: 28 Freq: RTQ4 Status: Complete Document 09/18/17 09:40 HCR (Rec: 09/18/17 11:43 HCR [email or web address]) Pulse Oximetry Assessment Equipment Usage Equipment Discontinued Continuous SpO2 Machine # 7 Intake & Output 09/20/17 09/21/17 09/22/17 06:59 06:59 06:59 Intake Total 2150 1808 1378 Output Total 1490 3000 1000 Balance 660 -1192 378 Weight 66.8 kg 66.4 kg Exam: GENERAL: well-nourished and in no acute distress. Patient is alert but not oriented to place time. Patient did seem oriented to person. HEAD: Atraumatic, normocephalic. EYES: Pupils equal round and reactive to light, extraocular movements intact, sclera anicteric, conjunctiva are normal. ENT: TMs normal, nares patent, oropharynx clear without exudates. Moist mucous membranes. No oral ulcerations or bleeding gums noted NECK: supple without lymphadenopathy or JVD. Trachea is central. No cervical or axillary lymphadenopathy noted. Carotids are 2+ LUNGS: Breath sounds bibasilar fine crackles at bases. No significant dullness noted. CHEST: Palpation of chest wall shows no significant chest wall tenderness. HEART: [place] [employer], No PSH, 2/6 KEVYN aortic area, 1/6 [place] systolic murmur mitral area, rubs or gallops. ABDOMEN: Soft, no significant tenderness appreciated, normoactive bowel sounds. No guarding, no rebound. No rigidity noted . No masses appreciated. EXTREMITIES: Pedal pulses are 1-2+, no calf tenderness noted, Trace + pedal edema noted. No clubbing or cyanosis. NEUROLOGICAL: Patient is alert and neurological exam however was not performed PSYCH: Patient cannot participate in a neurologic and psych exam because of the patient's current mental status SKIN: No significant ecchymosis, rash, ulcerations or signs of pruritus noted. MUSCULOSKELETAL EXAM: No significant joint swelling noted. Results Laboratory Results: 09/21/17 05:40 09/21/17 05:40 09/20/17 09/21/17 09/21/17 23:10 03:51 05:40 WBC 9.5 RBC 3.65 L Hgb 10.1 L D Hct 30.2 L MCV 83 MCH 27.5 MCHC 33.3 RDW 17.9 H Plt Count 372 Seg Neutrophils % 73.1 Lymphocytes % 11.9 L Monocytes % 9.4 Eosinophils % 4.6 Basophils % 1.0 Absolute Neutrophils 7.0 Absolute Lymphocytes 1.1 Absolute Monocytes 0.9 Absolute Eosinophils 0.4 Absolute Basophils 0.1 Sodium 146.0 H Potassium 3.0 L* Chloride 107 Carbon Dioxide 26 Anion Gap 13 BUN 18 Creatinine 1.19 Est GFR ( Amer) 52 L Est GFR (Non-Af Amer) 43 L Glucose 98 Calcium 9.0 Magnesium Stool Occult Blood NEGATIVE 09/21/17 05:40 WBC RBC Hgb Hct MCV MCH MCHC RDW Plt Count Seg Neutrophils % Lymphocytes % Monocytes % Eosinophils % Basophils % Absolute Neutrophils Absolute Lymphocytes Absolute Monocytes Absolute Eosinophils Absolute Basophils Sodium 146.3 H Potassium 4.2 D Chloride 110 H Carbon Dioxide 24 Anion Gap 12 BUN 16 Creatinine 1.22 Est GFR ( Amer) 51 L Est GFR (Non-Af Amer) 42 L Glucose 95 Calcium 9.2 Magnesium 1.8 Stool Occult Blood 09/16/17 09/17/17 09/17/17 05:20 11:08 11:08 Creatine Kinase < 20 L CK-MB (CK-2) 0.73 Troponin I 0.038 NT-Pro-B Natriuret Pep 5190 H 7760 H 09/17/17 09/17/17 09/18/17 19:40 19:40 02:54 Creatine Kinase < 20 L Cancelled CK-MB (CK-2) 0.62 Troponin I 0.037 NT-Pro-B Natriuret Pep 08/01/2409/19/17 09/19/17 02:54 22:50 22:50 Creatine Kinase < 20 L CK-MB (CK-2) Cancelled 0.57 Troponin I Cancelled 0.026 NT-Pro-B Natriuret Pep 9210 H 09/20/17 09/20/17 09/20/17 05:40 07:12 14:40 Creatine Kinase < 20 L < 20 L CK-MB (CK-2) 0.66 Troponin I 0.028 NT-Pro-B Natriuret Pep 09/20/17 09/20/17 14:40 20:15 Creatine Kinase CK-MB (CK-2) 0.64 Troponin I 0.023 NT-Pro-B Natriuret Pep 6900 H EKG Comments: Telemetry shows atrial fibrillation with controlled ventricular response. Chest x-ray report reviewed showed left basal pneumonia. Impressions: Head CT 09/17/17 00:00 IMPRESSION: CHRONIC CHANGES OF ATROPHY AND MICROVASCULAR ISCHEMIA. NO ACUTE PROCESS. EVIDENCE OF ACUTE STROKE: NO. Soft Tissue Neck CT 09/17/17 00:00 IMPRESSION: Lipoma. No signal mass. No significant change. Chest CT 09/18/17 00:00 IMPRESSION: Left lower lobe pneumonia. Chest X-Ray 09/20/17 00:00 IMPRESSION: No significant change. Assessment & Plan - Diagnosis (1) Atrial fibrillation Qualifiers: Atrial fibrillation type: chronic Qualified Code(s): I48.2 - Chronic atrial fibrillation Is this a current diagnosis for this admission?: Yes (2) Hypertension Qualifiers: Hypertension type: essential hypertension Qualified Code(s): I10 - Essential (primary) hypertension Is this a current diagnosis for this admission?: Yes (3) History of cerebrovascular accident Is this a current diagnosis for this admission?: Yes (4) Dyspnea Qualifiers: Dyspnea type: dyspnea on exertion Qualified Code(s): R06.09 - Other forms of dyspnea Is this a current diagnosis for this admission?: Yes (5) Pneumonia Qualifiers: Pneumonia type: aspiration pneumonia Aspiration pneumonia type: unspecified Laterality: unspecified laterality Is this a current diagnosis for this admission?: Yes (6) CHF (congestive heart failure) Qualifiers: Heart failure type: combined systolic and diastolic Heart failure chronicity: acute on chronic Qualified Code(s): I50.43 - Acute on chronic combined systolic (congestive) and diastolic (congestive) heart failure Is this a current diagnosis for this admission?: Yes - Notes Notes: Nutrition: Patient currently on tube feeding. Pneumonia: Aspiration. Continue with antibiotic therapy. Patient generally improving. May need a swallowing evaluation. CHF: Most likely combined systolic and diastolic heart failure, acute on chronic , precipitated by pneumonia. Continue with diuretic therapy. Hypernatremia: This seems to have resolved. Follow electrolytes closely. Atrial fibrillation: Heart rate is well controlled. Continue with metoprolol succinate for a much smoother action. Continue Eliquis if no bleeding complications but patient at increased risk of bleed due to her age. Hypertension: Blood pressure under reasonable control. Will recommend liberal control at her age. Cerebrovascular accident: Patient has history of CVA, possibly also have underlying dementia causing mental status changes. Patient has elevated white cell count therefore could have underlying infection. Dyspnea: BNP is noted to be elevated. Recommend resuming Lasix but following electrolytes and BNP level as well as intermittent chest x-rays. Case discussed with hospitalist. Prognosis is on the poor side. Patient yesterday was made a DNR. At this point will sign off. This reconsult if needed. - Time Time with patient: 15-25 minutes - CODE STATUS : was discussed, patient remains DO NOT RESUSCITATE. Surrogate decision-maker unchanged. Multiple medical problems were addressed. More than 50% of the time spent coordinating care, discussing management plans with involved caregivers. Management plans discussed with involved personnels. Medical decision making was of moderate to high complexity, patient's has multiple comorbidities. Medications reviewed and adjusted accordingly: Yes
[2017-09-22] MEDS: PIPERACILLIN SODIUM/TAZOBACTAM 3.375 GM in NORMAL SALINE 100 ML IV SCH ×4 (02:58→21:21)
[2017-09-22] MEDS: VANCOMYCIN HCL INJ 500 MG VIAL PEG SCH ×3 (05:28→17:28)
[2017-09-22] MEDS: LANSOPRAZOLE 30 MG TAB.RAP.DR PO SCH ×2 (05:28→17:28)
[2017-09-22] MEDS: FUROSEMIDE 20 MG TABLET PEG SCH ×3 (05:28→21:20)
[2017-09-22 06:43] LABS: ABSOLUTE BASOPHILS # (AUTO) 0.1 10^3/uL (0.0-0.2); ABSOLUTE EOSINOPHILS # (AUTO) 0.6 10^3/uL (0.0-0.6); ABSOLUTE LYMPHOCYTES (AUTO) 1.4 10^3/uL (0.5-4.7); ABSOLUTE MONOCYTES (AUTO) 0.7 10^3/uL (0.1-1.4); ABSOLUTE NEUT (AUTO) 6.1 10^3/uL (1.7-8.2); EOSINOPHILS % (AUTO) 6.3 % (0-6); HEMATOCRIT 30.9 % (36.0-47.0); LYMPHOCYTES % (AUTO) 15.9 % (13-45); MEAN CORPUSCULAR HGB CONC 32.4 g/dL (32.0-36.0); MEAN CORPUSCULAR VOLUME 83 fl (80-97); MONOCYTES % (AUTO) 8.2 % (3-13); PLATELET COUNT 376 10^3/uL (150-450); RED BLOOD COUNT 3.71 10^6/uL (3.72-5.28); RED CELL DISTRIBUTION WIDTH 18.1 % (11.5-14.0); SEGMENTED NEUTROPHILS % (AUTO) 68.6 % (42-78); TOTAL CELLS COUNTED % (AUTO) 100 %; WHITE BLOOD COUNT 8.9 10^3/uL (4.0-10.5)
[2017-09-22 06:48] LABS: ANION GAP 9 (5-19); BLOOD UREA NITROGEN 15 mg/dL (7-20); CALCIUM 9.5 mg/dL (8.4-10.2); CARBON DIOXIDE 29 mmol/L (22-30); CHLORIDE 109 mmol/L (98-107); GLUCOSE 93 mg/dL (75-110)
[2017-09-22] MEDS: APIXABAN 2.5 MG TABLET GT SCH ×2 (09:27→21:20)
[2017-09-22] MEDS: METOPROLOL SUCCINATE 50 MG TAB.SR.24H PO SCH (09:27)
[2017-09-22] MEDS: VANCOMYCIN HCL 750 MG in DEXTROSE 5%-WATER 250 ML IV SCH (12:41)
--- NOTE | 2017-09-22 13:04 | PDOC PROGRESS REPORT ---
Subjective Progress Note for:: 09/22/17 Subjective:: 87-year-old female with recent CVA, readmitted for pneumonia. She is lethargic today but arousable. She is in no apparent distress. Reason For Visit: PNEUMONIA Physical Exam Vital Signs: Temp Pulse Resp BP Pulse Ox 97.7 F 82 20 159/76 H 99 09/22/17 11:27 09/22/17 11:27 09/22/17 11:27 09/22/17 11:27 09/22/17 11:27 Pulse Oximeter Continuous Start: 09/14/17 19: 28 Freq: RTQ4 Status: Complete Document 09/18/17 09:40 HCR (Rec: 09/18/17 11:43 HCR [email or web address]) Pulse Oximetry Assessment Equipment Usage Equipment Discontinued Continuous SpO2 Machine # 7 Intake & Output 09/21/17 09/22/17 09/23/17 06:59 06:59 06:59 Intake Total 1808 2626 100 Output Total 3000 2500 800 Balance -1192 126 -700 Weight 66.4 kg 67 kg General appearance: PRESENT: other - The patient is awake alert and oriented 2. She still is somewhat confused but slowly improving. She is off of her BiPAP Head exam: PRESENT: atraumatic, normocephalic Respiratory exam: PRESENT: rhonchi - She has some scattered coarse rhonchi. She is diminished in the lower bases bilaterally. ABSENT: rales, wheezes Cardiovascular exam: PRESENT: irregular rhythm - The patient is rate controlled GI/Abdominal exam: PRESENT: normal bowel sounds, soft. ABSENT: distended, guarding, mass, organolmegaly, rebound, tenderness Rectal exam: PRESENT: deferred Extremities exam: PRESENT: full ROM. ABSENT: calf tenderness, clubbing, pedal edema Neurological exam: PRESENT: alert, awake, oriented to person, oriented to place. ABSENT: oriented to time, oriented to situation Psychiatric exam: PRESENT: appropriate affect, normal mood. ABSENT: homicidal ideation, suicidal ideation Skin exam: PRESENT: dry, intact, warm. ABSENT: cyanosis, rash Results Laboratory Results: 09/22/17 05:45 09/22/17 05:45 09/22/17 09/22/17 05:45 05:45 WBC 8.9 RBC 3.71 L Hgb 10.0 L Hct 30.9 L MCV 83 MCH 27.0 MCHC 32.4 RDW 18.1 H Plt Count 376 Seg Neutrophils % 68.6 Lymphocytes % 15.9 Monocytes % 8.2 Eosinophils % 6.3 H Basophils % 1.0 Absolute Neutrophils 6.1 Absolute Lymphocytes 1.4 Absolute Monocytes 0.7 Absolute Eosinophils 0.6 Absolute Basophils 0.1 Sodium 147.0 H Potassium 4.0 Chloride 109 H Carbon Dioxide 29 Anion Gap 9 BUN 15 Creatinine 1.16 Est GFR ( Amer) 54 L Est GFR (Non-Af Amer) 44 L Glucose 93 Calcium 9.5 Magnesium 1.7 09/16/17 09/17/17 09/17/17 05:20 11:08 11:08 Creatine Kinase < 20 L CK-MB (CK-2) 0.73 Troponin I 0.038 NT-Pro-B Natriuret Pep 5190 H 7760 H 09/17/17 09/17/17 09/18/17 19:40 19:40 02:54 Creatine Kinase < 20 L Cancelled CK-MB (CK-2) 0.62 Troponin I 0.037 NT-Pro-B Natriuret Pep 09/18/17 09/19/17 09/19/17 02:54 22:50 22:50 Creatine Kinase < 20 L CK-MB (CK-2) Cancelled 0.57 Troponin I Cancelled 0.026 NT-Pro-B Natriuret Pep 9210 H 09/20/17 09/20/17 09/20/17 05:40 07:12 14:40 Creatine Kinase < 20 L < 20 L CK-MB (CK-2) 0.66 Troponin I 0.028 NT-Pro-B Natriuret Pep 09/20/17 09/20/17 14:40 20:15 Creatine Kinase CK-MB (CK-2) 0.64 Troponin I 0.023 NT-Pro-B Natriuret Pep 6900 H Impressions: Head CT 09/17/17 00:00 IMPRESSION: CHRONIC CHANGES OF ATROPHY AND MICROVASCULAR ISCHEMIA. NO ACUTE PROCESS. EVIDENCE OF ACUTE STROKE: NO. Soft Tissue Neck CT 09/17/17 00:00 IMPRESSION: Lipoma. No signal mass. No significant change. Chest CT 09/18/17 00:00 IMPRESSION: Left lower lobe pneumonia. Chest X-Ray 09/20/17 00:00 IMPRESSION: No significant change. Assessment & Plan - Plan Summary Plan Summary: (1) Acute respiratory failure with hypoxemia Is this a current diagnosis for this admission?: Yes Plan: Her respiratory status is multifactorial including underlying pneumonia. Patient has now been weaned off of her BiPAP. Continue to titrate off oxygen as needed. (2) Aspiration pneumonia Is this a current diagnosis for this admission?: Yes Plan: Concerns are for gram negatives and anaerobes. Although MRSA cannot be ruled out as well. Continue broad-spectrum IV antibiotics with IV vancomycin and Zosyn. (3) Acute on chronic combined systolic and diastolic CHF (congestive heart failure) Is this a current diagnosis for this admission?: Yes Plan: We will continue with p.o. Lasix. (4) Acute encephalopathy Is this a current diagnosis for this admission?: Yes Plan: Multifactorial secondary to her underlying infectious issues as well as hypoxia. She seems to still be somewhat confuse but slowly improving. (5) UTI (urinary tract infection) Is this a current diagnosis for this admission?: Yes Plan: She has Pseudomonas growing in her urine. She should be adequately covered with IV Zosyn (6) Chronic atrial fibrillation Is this a current diagnosis for this admission?: Yes Plan: Currently rate controlled. (7) Recent cerebrovascular accident (CVA) Is this a current diagnosis for this admission?: Yes Plan: With significant dysphasia. She has a PEG tube in place. Family wish for repeat swallow evaluation. PEG feeds for now while that is pending. (8) Dysphagia Is this a current diagnosis for this admission?: Yes Plan: She is PEG tube dependent. In spite of this she has developed a significant aspiration pneumonia. Repeat swallow evaluation per family's wishes (9) Anemia Is this a current diagnosis for this admission?: Yes Plan: She had a precipitous drop in hemoglobin that is likely due to hemodilution. She did receive a unit of blood 09/20/17. Patient is stable today. (10) Hypokalemia Is this a current diagnosis for this admission?: Yes Plan: Resolved (11) Do not resuscitate Is this a current diagnosis for this admission?: Yes
[2017-09-22] MEDS: DEXTROSE 5%-1/4 NORMAL SALINE 1,000 ML IV PRN (15:20)
[2017-09-23] MEDS: VANCOMYCIN HCL INJ 500 MG VIAL PEG SCH ×4 (00:31→17:35)
[2017-09-23] MEDS: PIPERACILLIN SODIUM/TAZOBACTAM 3.375 GM in NORMAL SALINE 100 ML IV SCH ×4 (02:59→20:47)
[2017-09-23] MEDS: FUROSEMIDE 20 MG TABLET PEG SCH ×3 (05:40→22:03)
[2017-09-23] MEDS: LANSOPRAZOLE 30 MG TAB.RAP.DR PO SCH ×2 (05:40→17:35)
[2017-09-23 06:25] LABS: ABSOLUTE BASOPHILS # (AUTO) 0.1 10^3/uL (0.0-0.2); ABSOLUTE EOSINOPHILS # (AUTO) 0.6 10^3/uL (0.0-0.6); ABSOLUTE LYMPHOCYTES (AUTO) 1.4 10^3/uL (0.5-4.7); ABSOLUTE NEUT (AUTO) 7.9 10^3/uL (1.7-8.2); BASOPHILS % (AUTO) 0.8 % (0-2); EOSINOPHILS % (AUTO) 5.9 % (0-6); HEMATOCRIT 32.1 % (36.0-47.0); HEMOGLOBIN 10.5 g/dL (12.0-15.5); LYMPHOCYTES % (AUTO) 12.6 % (13-45); MEAN CORPUSCULAR HGB CONC 32.8 g/dL (32.0-36.0); MEAN CORPUSCULAR VOLUME 82 fl (80-97); MONOCYTES % (AUTO) 8.8 % (3-13); PLATELET COUNT 425 10^3/uL (150-450); RED CELL DISTRIBUTION WIDTH 17.9 % (11.5-14.0); SEGMENTED NEUTROPHILS % (AUTO) 71.9 % (42-78); TOTAL CELLS COUNTED % (AUTO) 100 %
[2017-09-23 06:36] LABS: ANION GAP 13 (5-19); BLOOD UREA NITROGEN 14 mg/dL (7-20); CALCIUM 9.3 mg/dL (8.4-10.2); CARBON DIOXIDE 28 mmol/L (22-30); CHLORIDE 106 mmol/L (98-107); GLUCOSE 116 mg/dL (75-110); POTASSIUM 3.1 mmol/L (3.6-5.0); SODIUM 147.4 mmol/L (137-145)
[2017-09-23] MEDS: METOPROLOL SUCCINATE 50 MG TAB.SR.24H PO SCH (09:34)
[2017-09-23] MEDS: APIXABAN 2.5 MG TABLET GT SCH ×2 (09:34→22:04)
--- NOTE | 2017-09-23 10:36 | Progress Note ---
Provider Note Provider Note: ID Consult Note Asked to review patient's chart by Pharmacy. Pt not seen or examined. Ms Danielle is an 87 year old female halfway resident who has PMH including AF and peg tube for dysphagia and who has hemiparesis after having a large stroke in August 2017. She was admitted on 09/14/17 for increased respiratory rate, hypoxia requiring oxygen, and increased somnolence. She was reported to have been given pills to take by mouth at her halfway. Her family also reported the patient had diarrhea. Pt was afebrile. She was noted on admission to have irregularly irregular HR, tachypnea with RR in the 30s, R hemiparesis, and to have rales, rhonci and wheezes on lung exam. Her initial WBC count was elevated to 17. BNP was 5500. CXR on 09/14/17 was read as showing no acute finding. Unasyn was started given the overlap in clinical presentation between aspiration pneumonitis and aspiration pneumonia. BCx from 09/14 were negative. Urine was also sent, which did not show pyuria or significant growth. On 09/17, pt clinically deteriorated and was transferred to ICU. More tachypneic. Wheezing on auscultation. Also hypoxia. Weight was increased. BNP had increased to 7760. Leukocytosis had continued to improve to 11k at this point. Continued to have no fever. CXR on 09/17 read as showing small L pleural effusion. At this point urine was sent for U/A and culture. U/A showed no pyuria. UCx grew Pseudomonas >100k cfu, resistant to Fortaz and cefepime. CT scan of the chest on was read as showing segmental airspace disease in the LLL. Unasyn was discontinued in favor of Zosyn and IV vancomycin. Repeat BCx were also obtained, which are negative. Pt was felt to have CHF exacerbation precipitated by pneumonia. Pt was also diuresed and has been described as improved and stable. On 09/21 Stool was sent for C diff PCR, which was positive. PO vancomycin 250 q6h was also added on 09/21. I/Os documented in her chart are number of incontinent stools: 1 on 09/21, 1 on 09/20, 1 on 09/19, 1 on 09/17, 1 on 09/16 and 1 on 09/15. Pt has normoactive BS and no abdominal tenderness. WBC count is 12. Creatinine is stable around 1. Impression/Recommendations The patient is being treated for hospital acquired pneumonia. Some component of her increased respiratory failure may have been related to CHF exacerbation given the weight gain, increased BNP, and good response to diuresis. However, what component could be related to a nosocomial pneumonia is difficult to exclude. She has no sputum cultures and no growth from blood cultures. Zosyn and IV vancomycin were started on 09/17. Generally completing 7 days of treatment is sufficient for HAP. Today is day 7. The patient is also being treated for C difficile infection. Since the introduction of the C difficle stool PCR, it has been increasingly recognized that the PCR is extremely sensitive and can detect asymptomatic colonization, not necessarily true C difficile diarrheal disease. Given the risk for false positive results, testing for C. difficile should not be performed on patients without clinically-significant diarrhea (less than 3 loose stools per day for 1- 2 days) or who have been administered laxatives in the prior 24-48hrs as a likely explanation of diarrheal symptoms. For Ms Danielle, an alternative explanation for diarrhea is not readily available, but she has only had one stool documented per day. How frequently the patient is actually having stools - is the number of stools recorded accurate - is a question that I cannot answer but that discussion would nursing staff might be able to clarify. If the clinical judgement of her treating physicians is that the patient appears to have C difficile infection rather than colonization, in absence of hypotension/ shock or evidence of impaired GI transit with ileus or megacolon, the standard dose of vancomycin 125 mg PO/per tube q6h should be sufficient. Peter Bangura MD [facility] pager [phone]
[2017-09-23] MEDS: VANCOMYCIN HCL 750 MG in DEXTROSE 5%-WATER 250 ML IV SCH (12:49)
--- NOTE | 2017-09-23 17:20 | PDOC PROGRESS REPORT ---
Subjective Subjective:: 87-year-old female with recent CVA, readmitted for pneumonia. She is awake, tries to answer questions although has difficulty speaking. She is in no apparent distress. She is on PEG feeds and stool is loose, but nurse reports more frequent. ID evaluation by Dr. Bangura appreciated. Reason For Visit: PNEUMONIA Physical Exam Vital Signs: Temp Pulse Resp BP Pulse Ox 97.5 F 92 18 153/72 H 98 09/23/17 14:49 09/23/17 14:49 09/23/17 14:49 09/23/17 14:49 09/23/17 14:49 Pulse Oximeter Continuous Start: 09/14/17 19: 28 Freq: RTQ4 Status: Complete Document 09/18/17 09:40 HCR (Rec: 09/18/17 11:43 HCR [id number]) Pulse Oximetry Assessment Equipment Usage Equipment Discontinued Continuous SpO2 Machine # 7 Intake & Output 09/22/17 09/23/17 09/24/17 06:59 06:59 06:59 Intake Total 2626 1671 450 Output Total 2500 3400 900 Balance 126 -1729 -450 Weight 67 kg 66.7 kg General appearance: PRESENT: other - The patient is awake, alert and oriented 2. She still is somewhat confused but slowly improving. She is off of her BiPAP Head exam: PRESENT: atraumatic, normocephalic Respiratory exam: PRESENT: rhonchi - She has some scattered coarse rhonchi. She is diminished in the lower bases bilaterally. ABSENT: rales, wheezes Cardiovascular exam: PRESENT: irregular rhythm - The patient is rate controlled GI/Abdominal exam: PRESENT: normal bowel sounds, soft. ABSENT: distended, guarding, mass, organolmegaly, rebound, tenderness Rectal exam: PRESENT: deferred Extremities exam: PRESENT: full ROM. ABSENT: calf tenderness, clubbing, pedal edema Neurological exam: PRESENT: alert, awake, oriented to person, oriented to place. ABSENT: oriented to time, oriented to situation Psychiatric exam: PRESENT: appropriate affect, normal mood. ABSENT: homicidal ideation, suicidal ideation Skin exam: PRESENT: dry, intact, warm. ABSENT: cyanosis, rash Results Laboratory Results: 09/23/17 05:45 09/23/17 05:45 09/23/17 09/23/17 05:45 05:45 WBC 11.0 H RBC 3.90 Hgb 10.5 L Hct 32.1 L MCV 82 MCH 27.0 MCHC 32.8 RDW 17.9 H Plt Count 425 Seg Neutrophils % 71.9 Lymphocytes % 12.6 L Monocytes % 8.8 Eosinophils % 5.9 Basophils % 0.8 Absolute Neutrophils 7.9 Absolute Lymphocytes 1.4 Absolute Monocytes 1.0 Absolute Eosinophils 0.6 Absolute Basophils 0.1 Sodium 147.4 H Potassium 3.1 L Chloride 106 Carbon Dioxide 28 Anion Gap 13 BUN 14 Creatinine 1.09 Est GFR ( Amer) 58 L Est GFR (Non-Af Amer) 48 L Glucose 116 H Calcium 9.3 09/17/17 21:10 Blood Blood Culture - Final NO GROWTH IN 5 DAYS 09/17/17 19:40 Blood Blood Culture - Final NO GROWTH IN 5 DAYS 09/16/17 09/17/17 09/17/17 05:20 11:08 11:08 Creatine Kinase < 20 L CK-MB (CK-2) 0.73 Troponin I 0.038 NT-Pro-B Natriuret Pep 5190 H 7760 H 09/17/17 09/17/17 09/18/17 19:40 19:40 02:54 Creatine Kinase < 20 L Cancelled CK-MB (CK-2) 0.62 Troponin I 0.037 NT-Pro-B Natriuret Pep 09/18/17 09/19/17 09/19/17 02:54 22:50 22:50 Creatine Kinase < 20 L CK-MB (CK-2) Cancelled 0.57 Troponin I Cancelled 0.026 NT-Pro-B Natriuret Pep 9210 H 09/20/17 09/20/17 09/20/17 05:40 07:12 14:40 Creatine Kinase < 20 L < 20 L CK-MB (CK-2) 0.66 Troponin I 0.028 NT-Pro-B Natriuret Pep 09/20/17 09/20/17 14:40 20:15 Creatine Kinase CK-MB (CK-2) 0.64 Troponin I 0.023 NT-Pro-B Natriuret Pep 6900 H Impressions: Head CT 09/17/17 00:00 IMPRESSION: CHRONIC CHANGES OF ATROPHY AND MICROVASCULAR ISCHEMIA. NO ACUTE PROCESS. EVIDENCE OF ACUTE STROKE: NO. Soft Tissue Neck CT 09/17/17 00:00 IMPRESSION: Lipoma. No signal mass. No significant change. Chest CT 09/18/17 00:00 IMPRESSION: Left lower lobe pneumonia. Chest X-Ray 09/20/17 00:00 IMPRESSION: No significant change. Assessment & Plan - Plan Summary Plan Summary: (1) Acute respiratory failure with hypoxemia Is this a current diagnosis for this admission?: Yes Plan: Her respiratory failure is multifactorial including underlying pneumonia. Patient has now been weaned off of her BiPAP. Continue to titrate off oxygen as needed. She has improved her may be discharged back to rehab after the weekend. (2) Aspiration pneumonia Is this a current diagnosis for this admission?: Yes Plan: Concerns are for gram negatives and anaerobes, although MRSA cannot be ruled out as well. ID evaluation appreciated. She is complete 7 days broad-spectrum IV antibiotics with IV vancomycin and Zosyn. (3) Acute on chronic combined systolic and diastolic CHF (congestive heart failure) Is this a current diagnosis for this admission?: Yes Plan: We will continue with p.o. Lasix. (4) Acute encephalopathy Is this a current diagnosis for this admission?: Yes Plan: Multifactorial secondary to her underlying infectious issues, her CVA, as well as hypoxia. She continues to improve. (5) UTI (urinary tract infection) Is this a current diagnosis for this admission?: Yes Plan: She has Pseudomonas growing in her urine. She should be adequately covered with IV Zosyn. D/C Panchal (6) Chronic atrial fibrillation Is this a current diagnosis for this admission?: Yes Plan: Currently rate controlled. (7) Recent cerebrovascular accident (CVA) Is this a current diagnosis for this admission?: Yes Plan: With significant dysphasia. She has a PEG tube in place. Family wish for repeat swallow evaluation. PEG feeds for now while that is pending. (8) Dysphagia Is this a current diagnosis for this admission?: Yes Plan: She is PEG tube dependent. In spite of this she has developed a significant aspiration pneumonia. Repeat swallow evaluation per family's wishes (9) Anemia Is this a current diagnosis for this admission?: Yes Plan: She had a precipitous drop in hemoglobin that is likely due to hemodilution. She did receive a unit of blood 09/20/17. H&H is stable today. (10) Hypokalemia Is this a current diagnosis for this admission?: Yes Plan: Resolved (11) C. diff Is this a current diagnosis for this admission?: Yes Plan: No significant diarrhea at this time. Will complete 7 days p.o. Vanco. (12) Do not resuscitate Is this a current diagnosis for this admission?: Yes
[2017-09-23] MEDS: POTASSIUM CHLORIDE 20 MEQ/15 ML UDCUP PO SCH ×2 (17:35→20:47)
[2017-09-23] MEDS: DEXTROSE 5%-1/4 NORMAL SALINE 1,000 ML IV PRN (19:20)
[2017-09-24] MEDS: VANCOMYCIN HCL INJ 500 MG VIAL PEG SCH ×4 (00:17→17:24)
[2017-09-24] MEDS ORDERED: ACETAMINOPHEN SOLN 325 MG/10.15 ML UDCUP PEG PRN (00:49)
[2017-09-24] MEDS: PIPERACILLIN SODIUM/TAZOBACTAM 3.375 GM in NORMAL SALINE 100 ML IV SCH ×3 (03:38→14:21)
[2017-09-24 04:35] LABS: ABSOLUTE BASOPHILS # (AUTO) 0.1 10^3/uL (0.0-0.2); ABSOLUTE EOSINOPHILS # (AUTO) 0.9 10^3/uL (0.0-0.6); ABSOLUTE LYMPHOCYTES (AUTO) 1.4 10^3/uL (0.5-4.7); ABSOLUTE MONOCYTES (AUTO) 1.2 10^3/uL (0.1-1.4); ABSOLUTE NEUT (AUTO) 9.8 10^3/uL (1.7-8.2); BASOPHILS % (AUTO) 0.8 % (0-2); EOSINOPHILS % (AUTO) 6.8 % (0-6); HEMATOCRIT 31.4 % (36.0-47.0); HEMOGLOBIN 10.1 g/dL (12.0-15.5); LYMPHOCYTES % (AUTO) 10.3 % (13-45); MEAN CORPUSCULAR HEMOGLOBIN 26.7 pg (27.0-33.4); MEAN CORPUSCULAR HGB CONC 32.2 g/dL (32.0-36.0); MEAN CORPUSCULAR VOLUME 83 fl (80-97); MONOCYTES % (AUTO) 8.7 % (3-13); PLATELET COUNT 423 10^3/uL (150-450); RED CELL DISTRIBUTION WIDTH 18.2 % (11.5-14.0); SEGMENTED NEUTROPHILS % (AUTO) 73.4 % (42-78); TOTAL CELLS COUNTED % (AUTO) 100 %; WHITE BLOOD COUNT 13.4 10^3/uL (4.0-10.5)
[2017-09-24 04:55] LABS: ANION GAP 13 (5-19); BLOOD UREA NITROGEN 16 mg/dL (7-20); CALCIUM 9.5 mg/dL (8.4-10.2); CARBON DIOXIDE 28 mmol/L (22-30); CHLORIDE 106 mmol/L (98-107); GLUCOSE 116 mg/dL (75-110); SODIUM 146.6 mmol/L (137-145)
[2017-09-24] MEDS: FUROSEMIDE 20 MG TABLET PEG SCH ×2 (05:16→13:02)
[2017-09-24] MEDS: LANSOPRAZOLE 30 MG TAB.RAP.DR PO SCH ×2 (05:17→17:24)
[2017-09-24 06:14] LABS: POTASSIUM 4.3 mmol/L (3.6-5.0)
[2017-09-24] MEDS: APIXABAN 2.5 MG TABLET GT SCH (10:30)
[2017-09-24] MEDS: METOPROLOL SUCCINATE 50 MG TAB.SR.24H PO SCH (10:30)
[2017-09-24] MEDS: VANCOMYCIN HCL 750 MG in DEXTROSE 5%-WATER 250 ML IV SCH (12:57)
[2017-09-24 13:25] LABS: VANCOMYCIN,TROUGH 24.8 ug/mL (5.0-20.0)
--- NOTE | 2017-09-24 15:05 | PDOC PROGRESS REPORT ---
Subjective Progress Note for:: 09/24/17 Reason For Visit: PNEUMONIA Physical Exam Vital Signs: Temp Pulse Resp BP Pulse Ox 97.7 F 88 24 H 166/75 H 100 09/24/17 11:54 09/24/17 14:00 09/24/17 11:54 09/24/17 11:54 09/24/17 11:54 Pulse Oximeter Continuous Start: 09/14/17 19: 28 Freq: RTQ4 Status: Complete Document 09/18/17 09:40 HCR (Rec: 09/18/17 11:43 HCR [id number]) Pulse Oximetry Assessment Equipment Usage Equipment Discontinued Continuous SpO2 Machine # 7 Intake & Output 09/23/17 09/24/17 09/25/17 06:59 06:59 06:59 Intake Total 1671 3150 855 Output Total 3400 1700 Balance -1729 1450 855 Weight 66.7 kg 63.2 kg General appearance: PRESENT: no acute distress, well-nourished Head exam: PRESENT: atraumatic, normocephalic Eye exam: PRESENT: conjunctiva pink, EOMI, PERRLA. ABSENT: scleral icterus Ear exam: PRESENT: normal external ear exam Mouth exam: PRESENT: dry mucosa, tongue midline Neck exam: ABSENT: carotid bruit, JVD, lymphadenopathy, thyromegaly Respiratory exam: ABSENT: rales, rhonchi, wheezes Cardiovascular exam: PRESENT: RRR, +S1, +S2. ABSENT: diastolic murmur, rubs, systolic murmur Pulses: PRESENT: normal dorsalis pedis pul GI/Abdominal exam: PRESENT: normal bowel sounds, soft, other - PEG. ABSENT: distended, guarding, mass, organolmegaly, rebound, tenderness Rectal exam: PRESENT: deferred Extremities exam: PRESENT: full ROM. ABSENT: calf tenderness, clubbing, pedal edema Neurological exam: PRESENT: alert, awake, CN II-XII grossly intact, other. ABSENT: motor sensory deficit Skin exam: PRESENT: dry, warm. ABSENT: cyanosis, rash Results Laboratory Results: 09/24/17 03:42 09/24/17 03:42 09/24/17 09/24/17 03:42 03:42 WBC 13.4 H RBC 3.80 Hgb 10.1 L Hct 31.4 L MCV 83 MCH 26.7 L MCHC 32.2 RDW 18.2 H Plt Count 423 Seg Neutrophils % 73.4 Lymphocytes % 10.3 L Monocytes % 8.7 Eosinophils % 6.8 H Basophils % 0.8 Absolute Neutrophils 9.8 H Absolute Lymphocytes 1.4 Absolute Monocytes 1.2 Absolute Eosinophils 0.9 H Absolute Basophils 0.1 Sodium 146.6 H Potassium 4.3 D Chloride 106 Carbon Dioxide 28 Anion Gap 13 BUN 16 Creatinine 1.07 Est GFR ( Amer) 59 L Est GFR (Non-Af Amer) 49 L Glucose 116 H Calcium 9.5 09/16/17 09/17/17 09/17/17 05:20 11:08 11:08 Creatine Kinase < 20 L CK-MB (CK-2) 0.73 Troponin I 0.038 NT-Pro-B Natriuret Pep 5190 H 7760 H 09/17/17 09/17/17 09/18/17 19:40 19:40 02:54 Creatine Kinase < 20 L Cancelled CK-MB (CK-2) 0.62 Troponin I 0.037 NT-Pro-B Natriuret Pep 09/18/17 09/19/17 09/19/17 02:54 22:50 22:50 Creatine Kinase < 20 L CK-MB (CK-2) Cancelled 0.57 Troponin I Cancelled 0.026 NT-Pro-B Natriuret Pep 9210 H 09/20/17 09/20/17 09/20/17 05:40 07:12 14:40 Creatine Kinase < 20 L < 20 L CK-MB (CK-2) 0.66 Troponin I 0.028 NT-Pro-B Natriuret Pep 09/20/17 09/20/17 14:40 20:15 Creatine Kinase CK-MB (CK-2) 0.64 Troponin I 0.023 NT-Pro-B Natriuret Pep 6900 H Impressions: Head CT 09/17/17 00:00 IMPRESSION: CHRONIC CHANGES OF ATROPHY AND MICROVASCULAR ISCHEMIA. NO ACUTE PROCESS. EVIDENCE OF ACUTE STROKE: NO. Soft Tissue Neck CT 09/17/17 00:00 IMPRESSION: Lipoma. No signal mass. No significant change. Chest CT 09/18/17 00:00 IMPRESSION: Left lower lobe pneumonia. Chest X-Ray 09/20/17 00:00 IMPRESSION: No significant change. Assessment & Plan - Time Time Spent with patient: 15-24 minutes Medications reviewed and adjusted accordingly: Yes Anticipated discharge: SNF Within: within 72 hours - Inpatient Certification Based on my medical assessment, after consideration of the patient's comorbidities, presenting symptoms, or acuity I expect that the services needed warrant INPATIENT care.: Yes Medical Necessity: Significant Comorbidiites Make Outpatient Treatment Too Risky , Need For IV Fluids, Need for IV Antibiotics, Risk of Complication if Not Cared For in Hospital - Plan Summary Plan Summary: 1. acute respiratory failure with hypoxemia likely secondary to underlying pneumonia. 2. Aspiration pneumonia completed 7 days of vancomycin and Zosyn IV 3. Acute on chronic combined systolic and diastolic CHF currently on Lasix 4. Acute encephalopathy likely secondary to underlying CVA, hypoxemia and infectious etiology 5. Urinary tract infection currently being treated with Zosyn secondary to Pseudomonas growing in the culture 6. Chronic atrial fibrillation currently rate controlled. Patient was noted to have some mild bleeding today and have a palate. She is on Eliquis. We will watch this carefully. 7. Recent cerebrovascular accident with significant residual dysphagia. Patient has a PEG tube in place. 8. Anemia status post 1 unit packed red blood cells 9. C. difficile colitis patient is currently on vancomycin orally 10. Patient is a DO NOT RESUSCITATE
[2017-09-24 16:08] VITALS: BP 149/90
[2017-09-24] MEDS: DEXTROSE 5%-1/4 NORMAL SALINE 1,000 ML IV PRN (17:24)
--- NOTE | 2017-09-24 18:56 | Death Summary ---
Summary Date : 09/24/17 Time of :: 18:29 Autopsy: No Resuscitation Status: Do Not Resuscitate - Final Diagnosis (1) Acute on chronic combined systolic and diastolic CHF (congestive heart failure) Is this a current diagnosis for this admission?: Yes (2) Acute respiratory failure with hypoxemia Is this a current diagnosis for this admission?: Yes (3) Aspiration pneumonia Is this a current diagnosis for this admission?: Yes (4) Atrial fibrillation Is this a current diagnosis for this admission?: Yes (5) CHF (congestive heart failure) Is this a current diagnosis for this admission?: Yes (6) History of cerebrovascular accident Is this a current diagnosis for this admission?: Yes (7) UTI (urinary tract infection) Is this a current diagnosis for this admission?: Yes Hospital Course:: Patient was admitted with difficulty breathing and shortness of breath. She was found to have aspiration pneumonia as well as subsequent UTI. She had been receiving antibiotics and was also started on oral vancomycin for C. difficile colitis. It appears suddenly at about 6:15 PM patient became bradycardic. She was also tachypneic. She was placed on BiPAP. Patient's symptoms did not improve and a rapid response was called. Within a few minutes though patient was found to have lost both her pulse and respiration and she was ultimately pronounced at 1829. Family was contacted and Mayco Danielle who is the next of kin was informed of patient expiring.
== END 2017-09-24 19:39 | DRG 177 ==
LOC: ER 15:09 → EH 19:43 → 4S 23:00 → 3W 09-17 13:25
PROVIDERS: ADMIT Internal Medicine; ATTEND Internal Medicine
PROC: 5A09557 Assistance with Respiratory Ventilation, Greater than 96 Consecutive Hours, Continuous Positive Airway Pressure (ICD-10-PCS; principal; 2017-09-17)
PROC: 02H633Z Insertion of Infusion Device into Right Atrium, Percutaneous Approach (ICD-10-PCS; 2017-09-17)
PROC: 30233N1 Transfusion of Nonautologous Red Blood Cells into Peripheral Vein, Percutaneous Approach (ICD-10-PCS; 2017-09-20)
DX: J69.0 Pneumonitis due to inhalation of food and vomit (principal); I50.43 Acute on chronic combined systolic (congestive) and diastolic (congestive) heart failure; J96.01 Acute respiratory failure with hypoxia; N39.0 Urinary tract infection, site not specified; A04.72 Enterocolitis due to Clostridium difficile, not specified as recurrent; E87.0 Hyperosmolality and hypernatremia; I13.0 Hypertensive heart and chronic kidney disease with heart failure and stage 1 through stage 4 chronic kidney disease, or unspecified chronic kidney disease; I69.359 Hemiplegia and hemiparesis following cerebral infarction affecting unspecified side; Z66 Do not resuscitate; I48.2 Chronic atrial fibrillation; N18.3 Chronic kidney disease, stage 3 (moderate); R00.1 Bradycardia, unspecified; L89.151 Pressure ulcer of sacral region, stage 1; D63.1 Anemia in chronic kidney disease; E86.0 Dehydration; E83.39 Other disorders of phosphorus metabolism; D17.0 Benign lipomatous neoplasm of skin and subcutaneous tissue of head, face and neck; I27.20 Pulmonary hypertension, unspecified; B96.5 Pseudomonas (aeruginosa) (mallei) (pseudomallei) as the cause of diseases classified elsewhere; E87.6 Hypokalemia; Z93.1 Gastrostomy status; I69.391 Dysphagia following cerebral infarction; Z78.1 Physical restraint status; Z90.49 Acquired absence of other specified parts of digestive tract; Z90.710 Acquired absence of both cervix and uterus; Z79.899 Other long term (current) drug therapy; Z88.6 Allergy status to analgesic agent; Z88.2 Allergy status to sulfonamides; Z82.49 Family history of ischemic heart disease and other diseases of the circulatory system
CPT/HCPCS: 36415; 36430; 36600; 70450; 70490; 71045; 71260; 80048; 80053; 80202; 81001; 82140; 82272; 82550; 82553; 82803; 82962; 83036; 83605; 83690; 83735; 83880; 83930; 83935; 84100; 84300; 84439; 84443; 84484; 85025; 85027; 85610; 85730; 86850; 86900; 86901; 86920; 87040; 87070; 87086; 87088; 87186; 87205; 87493; 93005; 93010; 93306; 94660; 94667; 94668; 94762; 96360; 96361; 99285; G8978-GP; G8979-GP; J0295; J1940; J2543; J3370; J3480; J3490; J7030; J7040; J7060; P9016; S0164